=== PATIENT | female | born 1990 | race Caucasian/White ===

== ENCOUNTER 2020-02-17 11:23 | Emergency (ER) | payer MEDICAID, SELFPAY ==
--- NOTE | 2020-02-17 11:59 | ED_ITS ---
HPI - URI/Sore Throat General Chief Complaint: Upper Respiratory Symptoms Stated Complaint: covid symptoms [id number] Time Seen by Provider: 02/17/20 11:55 Source: patient Mode of arrival: ambulatory Limitations: no limitations History of Present Illness HPI Narrative: cough, subjective fevers, body aches, sore throat MD elicited complaint: fever, cough and sore throat Onset (ago): day(s) (yesterday ) Consistency: constant Severity: mild Associated symptoms: denies other symptoms Related Data Previous Rx's Medication Instructions Recorded acetaminophen [Tylenol] 650 mg PO Q6H PRN #30 tab 02/17/20 albuterol sulfate 1 inh INHALATION QID PRN #6.7 g 02/17/20 ibuprofen 600 mg PO Q8H PRN #30 tab 02/17/20 Allergies Allergy/AdvReac Type Severity Reaction Status Date / Time No Known Allergies Allergy Unverified 01/30/20 19:19 [No Known Allergies*] Review of Systems Review of Systems: Yes all other systems are reviewed and are negative Constitutional: Constitutional: Reports no additional constitutional complaints, Reports body ache(s), Reports chills, Reports fever(s) and Denies headache(s) Eyes: Eyes: Denies change in vision ENT: Reports system reviewed and no additional complaints, except as documented, Denies dizziness, Denies headache(s) and Reports sore throat Cardiovascular: Cardiovascular: Reports no additional cardiovascular complaints, Denies chest pain, Denies leg edema and Denies dyspnea Respiratory: Respiratory: Reports no additional respiratory complaints, Reports cough and Denies dyspnea Gastrointestinal: Gastrointestinal: Reports no additional gastrointestinal complaints, Denies abdominal pain, Denies diarrhea, Denies nausea and Denies vomiting Musculoskeletal: Musculoskeletal: Reports no additional musculoskeletal complaints, Denies deformity, Denies arthralgias, Denies joint swelling, Denies numbness, Denies stiffness and Denies tingling Integumentary/Breasts: Skin/Breast: Reports system reviewed and no additional complaints, except as docu and Denies rash Neurologic: Reports system reviewed and no additional complaints, except as do cumented, Denies Abnormal speech present, Denies dizziness, Denies headache(s), Denies numbness and Denies tingling PMFSH Past Medical History Attestation statement: The following information was validated with the patient. Social History Social History Advance Directives: No Advance Directives Information Provided: No Physical Exam Vital Signs and I&O and Narrative: Vital Signs and I&O: Vital Signs Temp 98.8 F 02/17/20 12:16 Pulse 76 02/17/20 12:16 Resp 16 02/17/20 12:16 BP 136/62 02/17/20 12:16 Pulse Ox 99 02/17/20 12:16 Intake & Output 02/16/20 02/17/20 02/17/20 18:59 06:59 18:59 Weight 127.006 kg Body Mass Index 46.5 Const: General: cooperative Orientation/consciousness: patient oriented x3 HENMT: Head: Yes normal to inspection Ears: hearing grossly normal bilaterally General nose exam: Normal external nose present Face and sinus: Yes normal facial exam Mouth: Normal oral and palatal mucosa present Throat: Yes posterior oropharynx normal Eyes: General: appearance normal, both eyes and all related structures Pupils: Equal, round and reactive pupils present Neck: Neck: Yes normal visual inspection Chest: Chest palpation & inspection: normal inspection of the chest Resp: Effort & Inspection: normal respiratory effort Auscultation: clear to auscultation bilaterally Cardio: Palpation: normal PMI Rate: regular rate Rhythm: regular rhythm GI: Inspection: Yes normal to inspection Palpation (GI): Soft to palpation and nontender Auscultation: normal bowel sounds Back/Spine/Pelvis: Thoracic/Lumbar Spine: thoracic and lumbar spine normal to inspection Skin: General skin exam: no rashes or lesions noted Neuro: General: patient oriented x3 Cranial nerves: Yes Equal, round and reactive pupils present Speech: No Abnormal speech present Gait exam (Neuro): Normal gait present Motor exam (neuro): 5/5 motor strength present throughout and Motor abnormalities not present Sensory Exam: Normal double simultaneous stimulation for sensation Extrem: General: Yes normal to inspection MDM - URI/Sore Throat MDM Narrative Medical decision making narrative: Exam c/w with viral syndrome. Benign exam, well appearing. COVID testing sent. Reviewed worrisome signs/symptoms with patient and when to return to ED. Comfortable with discharge home Discharge Plan Discharge Clinical Impression: Viral infection Patient Disposition: Home, Self-Care Instructions: Viral Syndrome (ED) Additional Instructions: We have tested you today for COVID 19. We will call you in 1-2 days with your results Motrin or tylenol for pain or fever as needed Increase fluids, rest Prescriptions: New albuterol sulfate 90 mcg/actuation HFA aerosol inhaler 1 inh inhalation QID PRN (Reason: shortness of breath or wheezing) Qty: 6.7 RF: 0 ibuprofen 600 mg tablet 600 mg PO Q8H PRN (Reason: fever or pain) Qty: 30 RF: 0 acetaminophen [Tylenol] 325 mg tablet 650 mg PO Q6H PRN (Reason: fever or pain) Qty: 30 RF: 0 Referrals: Dione Rawls, APPLICATIONS TESTER [Primary Care Provider] - 5 days (if no better) Stand Alone Forms: Work/School Release Interventions: ED Discharge Assessment Last Done: 02/17/20 12:23
[2020-02-17 12:16] VITALS: BP 136/62; PULSE 76; RESP 16; TEMP 37.1; O2SAT 99; BMI 46.5
== END 2020-02-17 12:39 | disposition home or self-care (01) ==
PROVIDERS: Nurse Practitioner Family; Emergency Provider Internal Medicine; PCP Registered Nurse
DX: B34.9 Viral infection, unspecified (principal); R50.9 Fever, unspecified; M79.10 Myalgia, unspecified site; Z20.828 Contact with and (suspected) exposure to other viral communicable diseases
CPT/HCPCS: 36415; 87635; 99283

== ENCOUNTER 2020-02-27 09:32 | Day surgery (SDC) | payer MEDICAID, SELFPAY ==
[2020-02-27] VITALS (8 sets, daily range): BP systolic 132–155; BP diastolic 60–92; PULSE 54–72; RESP 16–18; TEMP 36.1; O2SAT 98–100; BMI 46.5
--- NOTE | 2020-02-27 | FL_ITS ---
EXAMINATION: XR LUMBAR PUNCTURE CLINICAL INFORMATION: Headache, pseudotumor cerebri. COMPARISON: None TECHNIQUE: Fluoroscopic guided lumbar puncture FINDINGS: Informed consent was obtained from the patient prior to the procedure. During this process, the procedure and potential alternatives were explained, along with the intended outcome and benefits. The risks of the procedure, as well as the risk of not doing the procedure, were discussed. The patient was given the opportunity to ask questions regarding the procedure and appeared competent to make medical decisions. A signed consent form which documents this discussion was placed in the medical record. Using sterile technique and fluoroscopic guidance a 22-gauge spinal needle was directed into the L3-L4 disc space level. The opening pressure was 13 cm of water. A total of 3.5 mL of CSF was collected. Closing pressure was 8 cm of water. One image. 20.950 mGy. 0.3 minutes fluoroscopy. IMPRESSION: Lumbar puncture as described with opening pressure of 13 cm of water.
[2020-02-27 10:19] LABS: MANUAL DIFF FLAG NO
[2020-02-27 10:30] LABS: Basophils Percent Auto 0.4 % (0-2); Eosinophils Absolute Auto 0.1 X10*3/uL (0.0-0.4); Eosinophils Percent Auto 1.8 % (0-4); Hematocrit 38.1 % (37-47); Imm Gran Abs Auto 0.02 X10*3/uL (0.00-0.03); Imm Gran Pct Auto 0.3 % (0.0-0.4); Lymphocytes Absolute Auto 2.4 X10*3/uL (1.2-4.9); Lymphocytes Percent Auto 31.3 % (20-40); Mean Corpuscular HGB Conc 31.5 g/dl (31.0-35.0); Mean Corpuscular Hemoglobin 26.4 pg (27.0-33.0); Mean Corpuscular Volume 83.9 fL (80-98); Mean Platelet Volume 12.2 fL (9.4-12.3); Monocytes Absolute Auto 0.3 X10*3/uL (0.1-1.2); Monocytes Percent Auto 4.4 % (2-11); Neutrophils Absolute Auto 4.8 X10*3/uL (2.0-8.3); Neutrophils Percent Auto 61.8 % (45-73); Platelet Count 310 X10*3/uL (160-400); Red Blood Count 4.54 X10*6/uL (4.20-5.50); Red Cell Distribution Width 13.3 % (11.0-16.0); White Blood Count 7.7 X10*3/uL (4.8-10.8)
[2020-02-27 10:34] LABS: Prothrombin Time 12.2 SEC (10.8-13.0)
[2020-02-27 10:38] LABS: Partial Thromboplastin Time 34.9 SEC (24.1-38.0)
[2020-02-27 13:03] LABS: CSF Tube # 2
[2020-02-27 13:21] LABS: Appearance CSF CLEAR
[2020-02-27 13:35] LABS: Glucose CSF 62 mg/dL; Total Protein CSF 45.4 mg/dL (15-45)
[2020-02-27 13:57] LABS: Appearance CSF CLEAR; CSF Tube # 4; CSF Volume 0.5 ML; Color CSF COLORLESS; Lymphocytes CSF 90 %; Neutrophils CSF 10 %; Red Blood Cell CSF 29 MM*3; White Blood Cell CSF 2 MM*3
[2020-02-27 13:58] LABS: CSF Monos 0 %; CSF Other Cells % 0 %
== END 2020-02-27 15:30 | disposition home or self-care (01) ==
LOC: HO.SSS 09:33
PROVIDERS: PCP Registered Nurse; Visit Provider Psychiatry & Neurology Neurology
PROC: 009U3ZZ Drainage of Spinal Canal, Percutaneous Approach (ICD-10-PCS; CPT 62270; principal; 2020-02-27 11:00)
DX: G93.2 Benign intracranial hypertension (principal)
CPT/HCPCS: 36415; 62328; 82945; 84157; 85025; 85610; 85730; 87015; 87070; 87205; 89051

== ENCOUNTER 2020-03-30 08:11 | Emergency (ER) | payer MEDICAID, SELFPAY ==
[2020-03-30 08:18] VITALS: BP 142/82; PULSE 77; RESP 16; TEMP 36.2; O2SAT 96; BMI 46.5
--- NOTE | 2020-03-30 09:34 | ED.BACK ---
HPI - Back Pain/Injury General Chief Complaint: Back Pain/Injury Stated Complaint: BACK PAIN Time Seen by Provider: 03/30/20 09:34 History of Present Illness HPI Narrative: Patient complains of low back pain worse on the left side radiating to her left foot, she has no injury this is been going on for 3 days the pain is moderate, pain is worse with movement, there is no changes to bowel or bladder, no fever no chills no numbness no weakness Related Data Previous Rx's Medication Instructions Recorded acetaminophen [Tylenol] 650 mg PO Q6H PRN #30 tab 02/17/20 albuterol sulfate 1 inh INHALATION QID PRN #6.7 g 02/17/20 ibuprofen 600 mg PO Q8H PRN #30 tab 02/17/20 acetaminophen-codeine 1 - 2 tab PO Q6H PRN #20 tab 03/30/20 ibuprofen 600 mg PO Q6H PRN #20 tab 03/30/20 prednisone 60 mg PO DAILY 3 Days #9 tab 03/30/20 Allergies Allergy/AdvReac Type Severity Reaction Status Date / Time No Known Allergies Allergy Unverified 01/30/20 19:19 [No Known Allergies*] Review of Systems Review of Systems: Review of systems is positive for back pain on the left side radiating to the left leg There is no fever no chills no weakness no numbness no paresthesias no skin rash no chest pain no abdominal pain no nausea no vomiting no dysuria no incontinence no changes to bowel or bladder pattern Yes all other systems are reviewed and are negative [facility] Past Medical History Attestation statement: The following information was validated with the patient. [facility] Narrative: Patient has prior history of back pain Source: nursing notes reviewed Medical History (Updated 03/30/20 @ 09:48 by JACKIE Prado) Asthma Surgical History (Updated 03/30/20 @ 08:22 by Rita Weaver) History of cholecystectomy Social History Social History Smoking Status: Never smoker Advance Directives: No Advance Directives Information Provided: Yes Physical Exam Vital Signs: Vital Signs: Last Vital Signs Temp 97.1 F 03/30/20 08:18 Pulse 77 03/30/20 08:18 Resp 16 03/30/20 08:18 BP 142/82 H 03/30/20 08:18 Pulse Ox 96 03/30/20 08:18 Body Mass Index 46.5 General appearance no acute distress, A&O x3 Normocephalic atraumatic Neck is supple Chest wall is nontender, no respiratory distress Abdomen is soft and nontender The back there is left-sided paraspinal lumbar tenderness, skin is normal, no focal bony tenderness, no redness or wounds, no CVA tenderness Extremities is full range of motion x4 Neuro there is no motor or sensory deficit and the gait is normal, patient can walk on toes walk on heels Course Course Course Narrative: Exam is consistent with left sciatica with no neurologic deficit no bowel or bladder change Discharge Plan Discharge Clinical Impression: Sciatica Qualifiers: Laterality: left Qualified Code(s): M54.32 - Sciatica, left side Patient Disposition: Home, Self-Care Additional Instructions: Symptoms of back pain shooting down left leg are most likely pinched nerve in her back Prednisone sometimes reduces inflammation around the nerve Follow with primary doctor for referral for physical therapy, chiropractor, massage are all often helpful Return any time if worse Prescriptions: New acetaminophen-codeine 300-30 mg tablet 1 - 2 tab PO Q6H PRN (Reason: pain) Qty: 20 RF: 0 ibuprofen 600 mg tablet 600 mg PO Q6H PRN (Reason: pain) Qty: 20 RF: 0 prednisone 20 mg tablet 60 mg PO DAILY 3 Days Qty: 9 RF: 0 No Action albuterol sulfate 90 mcg/actuation HFA aerosol inhaler 1 inh inhalation QID PRN (Reason: shortness of breath or wheezing) Qty: 6.7 RF: 0 ibuprofen 600 mg tablet 600 mg PO Q8H PRN (Reason: fever or pain) Qty: 30 RF: 0 acetaminophen [Tylenol] 325 mg tablet 650 mg PO Q6H PRN (Reason: fever or pain) Qty: 30 RF: 0 Stand Alone Forms: Work/School Release Interventions: ED Discharge Assessment Last Done: 03/30/20 10:06 Discharge Date/Time: 03/30/20 10:00
[2020-03-30] MEDS: Acetaminophen 325 MG TABLET 650 MG PO (09:53)
[2020-03-30] MEDS: predniSONE 20 MG TABLET 60 MG PO (09:54)
[2020-03-30] MEDS: Ketorolac Tromethamine 30 MG/ML VIAL IM (09:54)
== END 2020-03-30 10:00 | disposition home or self-care (01) ==
PROVIDERS: Emergency Provider Emergency Medicine; PCP Registered Nurse
DX: M54.32 Sciatica, left side (principal); M79.672 Pain in left foot; Z79.899 Other long term (current) drug therapy
CPT/HCPCS: 96372; 99283; 99284; J1885

== ENCOUNTER 2020-08-27 07:36 | Emergency (ER) | payer MEDICAID, SELFPAY ==
--- NOTE | ~2020-08-27 | XR_ITS ---
EXAMINATION: XR LUMBOSACRAL SPINE CLINICAL INFORMATION: Back pain COMPARISON: None TECHNIQUE: Three views of the lumbosacral spine. FINDINGS: There is normal lumbar segmentation with 5 nonrib-bearing lumbar vertebrae of normal height and normal lumbar lordosis. There is likely spina bifida occulta at S1. There is no vertebral compression or spondylolisthesis or destructive process. Degenerative disc changes are present at L4-L5 with disc space narrowing and mild endplate sclerosis and borderline vertebral spurring. There are lesser degenerative disc changes at L3-L4. The SI joints and visualized sacrum are unremarkable. XR/XR lumbar spine 2-3V IMPRESSION: 1. Degenerative disc changes L4-L5 and L3-L4. 2. Spina bifida occulta S1.
[2020-08-27 08:36] VITALS: BP 146/82; PULSE 68; RESP 18; TEMP 36.8; O2SAT 98; BMI 47.2
[2020-08-27] MEDS: Acetaminophen 325 MG TABLET 650 MG PO (09:58)
[2020-08-27] MEDS: Lidocaine 4 % Patch ADH..PATCH 1 PATCH TRANSDERMA (09:59)
[2020-08-27] MEDS: Ketorolac Tromethamine 30 MG/ML VIAL IM (10:00)
[2020-08-27 10:03] VITALS: BP 149/94; PULSE 65; RESP 12; O2SAT 98
--- NOTE | 2020-08-27 10:14 | ED.BACK ---
HPI - Back Pain/Injury General Chief Complaint: Back Pain/Injury Stated Complaint: flank pain Time Seen by Provider: 08/27/20 09:15 Source: patient Mode of arrival: ambulatory History of Present Illness HPI Narrative: 30-year-old female with a past medical history of asthma, sciatica, presenting to the ED complaining of 3 weeks of acute on chronic worsening low back pain radiating down bilateral lower extremities. Reports taking Robaxin and ibuprofen prescribed at [facility] without relief. Admits to associated numbness/paresthesias down bilateral lower extremities. Denies known injury/trauma or falls, weakness, urinary incontinence/retention, fever, chills, dysuria/hematuria, nausea/vomiting MD elicited complaint: back pain Related Data Previous Rx's Medication Instructions Recorded acetaminophen [Tylenol] 650 mg PO Q6H PRN #30 tab 02/17/20 albuterol sulfate 1 inh INHALATION QID PRN #6.7 g 02/17/20 ibuprofen 600 mg PO Q8H PRN #30 tab 02/17/20 acetaminophen-codeine 1 - 2 tab PO Q6H PRN #20 tab 03/30/20 ibuprofen 600 mg PO Q6H PRN #20 tab 03/30/20 prednisone 60 mg PO DAILY 3 Days #9 tab 03/30/20 acetaminophen [Tylenol Extra 500 mg PO Q6H PRN #20 tab 08/27/20 Strength] lidocaine [Lidoderm] 1 patch TOPICAL DAILY PRN #30 ea 08/27/20 MDD remove after 12 hours tramadol 50 mg PO Q8H PRN 3 Days #9 tab 08/27/20 Allergies Allergy/AdvReac Type Severity Reaction Status Date / Time No Known Allergies Allergy Unverified 01/30/20 19:19 [No Known Allergies*] Review of Systems Review of Systems: Constitutional: No Fever, No Chills Gastrointestinal: No Nausea, No Vomiting, No Abdominal pain Genitourinary: No Dysuria, No Urinary Frequency, No Hematuria, No Urinary Incontinence/retention, No Flank Pain Musculoskeletal: +back pain Skin: No Skin Lesions, No rash Neuro: No Weakness, + Numbness, + Paresthesias Yes all other systems are reviewed and are negative PMFSH Past Medical History Attestation statement: The following information was validated with the patient. Medical History (Updated 08/27/20 @ 10:20 by JACKIE Clark) Asthma Surgical History (Updated 03/30/20 @ 08:22 by Rita Weaver) History of cholecystectomy Social History Social History Smoking Status: Never smoker Use of substances other than those prescribed or required for medical reasons: No Advance Directives: No Advance Directives Information Provided: Yes Physical Exam Vital Signs: Vital Signs: Last Vital Signs Temp 98.2 F 08/27/20 08:36 Pulse 65 08/27/20 10:03 Resp 12 08/27/20 10:03 BP 149/94 H 08/27/20 10:03 Pulse Ox 98 08/27/20 10:03 Body Mass Index 47.2 Const: Other: In pain General: cooperative, healthy appearing and comfortable Orientation/consciousness: patient oriented x3 Limitations: no limitations HENMT: Head: Yes normal to inspection Ears: hearing grossly normal bilaterally General nose exam: Normal external nose present Face and sinus: Yes normal facial exam Eyes: General: appearance normal, both eyes and all related structures EOM: EOMs intact bilaterally Neck: Neck: Yes normal visual inspection Resp: Effort & Inspection: normal respiratory effort Cardio: Rate: regular rate GI: Inspection: Yes normal to inspection Palpation (GI): Soft to palpation, nontender and no guarding : General: Yes no CVA tenderness Back/Spine/Pelvis: Other: No midline thoracic/lumbar spinous tenderness or step-off/deformity. + bilateral thoracic and lumbar paraspinal MSK tenderness to palpation Back: no CVA tenderness Skin: Rashes: no rashes Wounds: no wounds Neuro: Other: No saddle anesthesia General: patient oriented x3, gait normal, tone normal and moves all extremities Gait exam (Neuro): Normal gait present Motor exam (neuro): 5/5 motor strength present throughout Extrem: General: Yes normal to inspection Course Course Course Narrative: -UA negative, no blood XR lumbar spine 2-3V IMPRESSION: 1. Degenerative disc changes L4-L5 and L3-L4. 2. Spina bifida occulta S1. >> results discussed with patient. Discussed she should follow up with Neurosurgery/[facility] with these x-ray findings. She verbalized understanding feel safe for discharge. Worrisome signs and symptoms and strict return precautions discussed MDM - Back Pain/Injury MDM Narrative Medical decision making narrative: On exam VSS, NAD/well-appearing, physical exam as above, no midline spinous tenderness/deformity, no red flag symptoms or saddle anesthesia, ambulating with steady gait. Likely MSK pain/sciatica. Low concern for cauda equina/cord compression Due to this being patient's 2nd ED visit in short time will obtain x-rays Medical Records Attestation: I reviewed the patient's medical records. Lab Data Labs: Lab Results 08/27/20 Range/Units 10:09 Urine Color YELLOW Urine Appearance CLEAR Urine pH 6.0 (5.0-8.0) Ur Specific [place] 1.025 (1.005-1.025) Urine Protein NEG (NEG-TRACE) MG/DL Urine Glucose (UA) NEG (NEG) MG/DL Urine Ketones NEG (NEG) MG/DL Urine Blood NEG (NEG) Urine Nitrite NEG (NEG) Ur Leukocyte Esterase NEG (NEG) Discharge Plan Discharge Clinical Impression: Sciatica, Lumbar radiculopathy Patient Disposition: Home, Self-Care Instructions: Back Pain (ED) Additional Instructions: Your x-ray showed degenerative disc changes at L4-5 and L3-4, also likely spina bifida occulta at S1 which is a small gap in her vertebra. You should follow-up with a spine doctor [facility] [address] Continue taking previously prescribed medications. In addition: Lidoderm patches are numbing patches, apply to painful area Tramadol is an opiate pain medication, take only when pain is severe for the next 3 days In addition take Tylenol at home If symptoms persist or worsen, pain becomes unbearable, you developed urinary retention or incontinence, or weakness return to the ED Prescriptions: New acetaminophen [Tylenol Extra Strength] 500 mg tablet 500 mg PO Q6H PRN (Reason: pain or fever) Qty: 20 RF: 0 lidocaine [Lidoderm] 5 % adhesive patch,medicated 1 patch topical DAILY MDD remove after 12 hours PRN (Reason: pain) Qty: 30 RF: 0 tramadol 50 mg tablet 50 mg PO Q8H PRN (Reason: pain) 3 Days Qty: 9 RF: 0 No Action albuterol sulfate 90 mcg/actuation HFA aerosol inhaler 1 inh inhalation QID PRN (Reason: shortness of breath or wheezing) Qty: 6.7 RF: 0 ibuprofen 600 mg tablet 600 mg PO Q8H PRN (Reason: fever or pain) Qty: 30 RF: 0 acetaminophen [Tylenol] 325 mg tablet 650 mg PO Q6H PRN (Reason: fever or pain) Qty: 30 RF: 0 acetaminophen-codeine 300-30 mg tablet 1 - 2 tab PO Q6H PRN (Reason: pain) Qty: 20 RF: 0 ibuprofen 600 mg tablet 600 mg PO Q6H PRN (Reason: pain) Qty: 20 RF: 0 prednisone 20 mg tablet 60 mg PO DAILY 3 Days Qty: 9 RF: 0 Referrals: Dione Rawls, BRANDING SPECIALIST [Primary Care Provider] - 2 days
--- NOTE | 2020-08-27 10:17 | PC.NURSE ---
PT REPORTS PAIN 10/10, PAIN MED GIVEN. PT TAKEN TO CT SCAN AND U/A OBTAINED RESULTS PENDING.
[2020-08-27 10:24] LABS: Glucose Urine UA NEG (NEG); Leukocyte Esterase Urine NEG (NEG); Nitrite Urine NEG (NEG); Specific Gravity - Urine 1.025 (1.005-1.025); Urine Blood NEG (NEG); Urine Ketones NEG (NEG); Urine Protein NEG (NEG-TRACE)
[2020-08-27 10:28] LABS: Appearance Urine CLEAR; Color Urine YELLOW
== END 2020-08-27 11:27 | disposition home or self-care (01) ==
PROVIDERS: Physician Assistant; Emergency Provider Emergency Medicine Emergency Medical Services; PCP Registered Nurse
DX: M54.42 Lumbago with sciatica, left side (principal); M54.41 Lumbago with sciatica, right side; M54.16 Radiculopathy, lumbar region
CPT/HCPCS: 72100; 81003; 96372; 99284; J1885

== ENCOUNTER → 2021-06-08 14:21 | Outpatient (BNVA) | payer MEDICAID, SELFPAY | PROVIDERS: PCP Registered Nurse; Referring Provider Registered Nurse; Visit Provider Physician Assistant ==

== ENCOUNTER 2021-07-01 07:47 | Emergency (ER) | payer MEDICAID, SELFPAY ==
[2021-07-01 07:54] VITALS: BP 162/67; PULSE 72; RESP 18; TEMP 36.6; O2SAT 98; BMI 45.1
[2021-07-01 08:16] VITALS: BP 123/66; PULSE 70; RESP 15; TEMP 37.1; O2SAT 99
--- NOTE | 2021-07-01 08:36 | ED_ITS ---
HPI - General Adult General Chief complaint: General Medical Stated complaint: Rash Time Seen by Provider: 07/01/21 08:09 Source: patient Mode of arrival: ambulatory Limitations: language barrier History of Present Illness HPI narrative: 31-year-old Ugandan-speaking female presents for a rash over her entire body that started midday yesterday. Rash is itchy, not painful, no fevers. Patient has no allergies that she knows of, she has no recent medication changes, she has not used any new soaps, body washes, laundry detergent, shampoos, conditioners, body lotions; she has not eaten any new foods, she has not gotten any new pets. No shortness of breath, no wheezing, no throat swelling, tongue swelling, lip swelling, throat itchiness. No chest pain, shortness of breath, abdominal pain, nausea or vomiting. Related Data Previous Rx's Medication Instructions Recorded famotidine 20 mg tablet 20 mg PO DAILY 14 Days #14 tab 07/01/21 prednisone 20 mg tablet 60 mg PO DAILY 5 Days #15 tab 07/01/21 Allergies Allergy/AdvReac Type Severity Reaction Status Date / Time No Known Allergies Allergy Verified 06/08/21 09:20 [No Known Allergies*] Review of Systems Constitutional: Constitutional: Denies body ache(s), Denies chills, Denies fatigue, Denies fever(s), Denies headache(s), Denies malaise and Denies weakness Eyes: Eyes: Denies diplopia ENT: Denies vertigo, Denies dizziness, Denies otalgia, Denies headache(s), Denies mouth pain, Denies post nasal drip, Denies sinus pain, Denies sinus pressure, Denies sore throat and Denies throat swelling Cardiovascular: Cardiovascular: Denies chest pain, Denies syncope, Denies leg edema, Denies lightheadedness, Denies Loss of Consciousness, Denies palpitations and Denies dyspnea Respiratory: Respiratory: Denies chest congestion, Denies cough and Denies dyspnea Gastrointestinal: Gastrointestinal: Denies abdominal pain, Denies hematochezia, Denies constipation, Denies diarrhea and Denies vomiting Musculoskeletal: Musculoskeletal: Reports no additional musculoskeletal complaints Integumentary/Breasts: Skin/Breast: Reports rash Comments: Itchy rash on back, bilateral legs, bilateral thigh Neurologic: Denies confusion, Denies vertigo, Denies dizziness, Denies syncope, Denies headache(s) and Denies weakness Psychiatric: Psychiatric: Denies anxiety, Denies confusion and Denies depression Endocrine: Endocrine: Denies fatigue and Denies palpitations Allergic/Immunologic: Allergic/Immunologic: Denies throat swelling [facility], [facility] Past Medical History Medical History Asthma Surgical History History of cholecystectomy Family History Family History (Updated 06/08/21 @ 09:08 by Sofia Quach) Mother Cancer Thyroid condition Father No problems noted. Sister Thyroid condition Asthma Sister No problems noted. Brother No problems noted. Brother No problems noted. Brother Hypertension Son No problems noted. Social History Social History (Updated 06/08/21 @ 09:10 by Sofia Quach) Alcohol intake: current Alcohol intake frequency: holidays/special occasions only Patient Tobacco Use Status: Never used Tobacco Advance Directives: No Advance Directives Information Provided: No Patient : No Physical Exam ED Vital Signs: Vital Signs - 24 hr 07/01/21 07:54 07/01/21 08:16 Temperature 98 F 98.8 F Pulse Rate 72 70 Respiratory Rate 18 15 Blood Pressure 162/67 H 123/66 Pulse Oximetry 98 99 BMI result Body Mass Index 45.1 Const General: healthy appearing, no acute distress, alert and awake; No confusion Nutritional Appearance: obese Orientation/consciousness: patient oriented x3 and No confusion Limitations: no limitations [facility] Head: Yes normal to inspection, Yes normocephalic and Yes atraumatic Ears: hearing grossly normal bilaterally General nose exam: Normal external nose present Face and sinus: Yes normal facial exam, Yes face symmetric, No edema and No Facial tenderness on exam of face and sinuses Mouth: Normal oral and palatal mucosa present, lip normal, tongue normal and or opharynx normal Throat: Yes posterior oropharynx normal Eyes Pupils: Equal, round and reactive pupils present EOM: EOMs intact bilaterally Neck Neck: Yes normal visual inspection, Yes full ROM, Yes no lymphadenopathy, Yes no meningeal signs, Yes trachea midline and Yes supple Resp Effort & Inspection: normal respiratory effort and able to speak in complete sentences Auscultation: clear to auscultation bilaterally, no crackles, no rales, no rhonchi and no wheezes Cardio Rate: regular rate Rhythm: regular rhythm Heart sounds: S1 normal heart sound present and S2 normal heart sound present GI Inspection: Yes Abdominal panniculus present and Yes obesity Palpation (GI): Soft to palpation, not firm, nontender, no guarding and not rigid Percussion: Yes normal to percussion Auscultation: normal bowel sounds Skin Other: Rash is faint and diffuse maculopapular on patient's upper posterior trunk, bi lateral arms, posterior thighs. Neuro General: patient oriented x3, moves all extremities, no meningeal signs, no focal motor deficits and No confusion Cranial nerves: Yes Equal, round and reactive pupils present Course Course Course Narrative: 51-year-old female presents with itchy rash that is diffuse over her body. Patient is well appearing, vital signs are stable, patient is satting 99% on room air. On exam, patient has a patent airway, no angioedema, lungs clear to auscultation bilaterally. Rash is faint and diffuse maculopapular on patient's upper posterior trunk, bilateral arms, posterior thighs. Gave prednisone, famotidine, Benadryl here in the emergency room. Prescribed the same for patient, counseled her to return if she had any trouble breathing, lip swelling, throat swelling, shortness of breath. Patient verbalized agreement understanding of the plan. All patient's questions were answered. Discharge Plan Discharge Clinical Impression: Contact dermatitis Patient Disposition: Home, Self-Care Instructions: Contact Dermatitis (ED) Additional Instructions: You have already had your prednisone and famotidine today. Please take those medications tomorrow starting in the morning. Please take them once a day in the morning. In addition, buy some [id number]-[id number] Benadryl, and take that as directed. Benadryl can make you sleepy, but will help with the itching until the other medications kick in. Please return to the emergency room if you have lip swelling, throat swelling, if you feel short of breath, wheezy, or have any trouble breathing. Please call your primary care provider for follow-up appointment from today's emergency room visit. Ya hendrickson tomado ricks prednisona y famotidina hoy. Por favor, tome esos medicamentos ma?giuliana a partir de la ma?giuliana. T?melos jesús vez al d?a por la ma?giuliana. Adem?s, compre un poco de Benadryl de venta paresh y t?donahue seg?n las indicaciones. B enadryl puede causarle norma?o, andrae ayudar? con la picaz?n hasta que los otros medicamentos momo efecto. Regrese a la kyaw de emergencias si tiene hinchaz?n de los labios o de la garganta, si le falta el aire, sibilancia o si tiene problemas para respirar. Llame a ricks proveedor de atenci?n primaria para jesús jaycee de seguimiento de la visita a la kyaw de emergencias de hoy. Prescriptions: New prednisone 20 mg tablet 60 mg PO DAILY 5 Days Qty: 15 0RF famotidine 20 mg tablet 20 mg PO DAILY 14 Days Qty: 14 0RF Stand Alone Forms: Work/School Release Print Language: Ugandan
[2021-07-01] MEDS: predniSONE 20 MG TABLET 60 MG PO (09:23)
[2021-07-01] MEDS: diphenhydrAMINE HCL 25 MG TABLET 50 MG PO (09:24)
[2021-07-01] MEDS: Famotidine 20 MG TABLET PO (09:24)
== END 2021-07-01 09:40 | disposition home or self-care (01) ==
PROVIDERS: Emergency Provider Emergency Medicine
DX: L25.9 Unspecified contact dermatitis, unspecified cause (principal); R21 Rash and other nonspecific skin eruption; Z79.899 Other long term (current) drug therapy
CPT/HCPCS: 99283; 99284; Q0163

== ENCOUNTER → 2021-07-14 08:08 | Outpatient (BNVA) | payer MEDICAID, SELFPAY | PROVIDERS: Visit Provider Surgery ==

== ENCOUNTER 2021-09-02 08:39 | Emergency (ER) | payer MEDICAID, SELFPAY ==
--- NOTE | ~2021-09-02 | XR_ITS ---
EXAMINATION: XR TIBIA AND FIBULA, LEFT CLINICAL INFORMATION: Status post heavy lifting with pain COMPARISON: None TECHNIQUE: AP and lateral views of the left tibia and fibula were obtained. FINDINGS: No acute visible fracture or dislocation. Joint spaces and alignment are maintained. Soft tissues are unremarkable. XR/XR tibia fibula LT 2V IMPRESSION: No acute visible fracture or dislocation.
--- NOTE | ~2021-09-02 | XR_ITS ---
EXAMINATION: XR LUMBOSACRAL SPINE CLINICAL INFORMATION: Status post heavy lifting with low back pain COMPARISON: Lumbar spine radiograph from 08/27/2020 TECHNIQUE: Three views of the lumbosacral spine. FINDINGS: 5 nonrib-bearing lumbar-type vertebral bodies. No acute visible fracture or dislocation. Minimal multilevel degenerative changes with osteophyte formation lower lumbar spine facet arthropathy. Vertebral body heights and disc spaces are otherwise maintained. Posterior elements are intact. Paraspinal soft tissues are unremarkable. Bowel gas is unremarkable. Surgical clips in the right upper quadrant abdomen. XR/XR lumbar spine 2-3V IMPRESSION: 1. No acute visible fracture or dislocation. 2. Minimal multilevel degenerative.
[2021-09-02 08:46] VITALS: BP 150/92; PULSE 81; RESP 20; TEMP 36.1; O2SAT 98; BMI 47.4
[2021-09-02] MEDS: NaPROXEN 500 MG TABLET PO (09:52)
[2021-09-02 10:06] LABS: UPreg QC Valid YES; Urine Pregnancy NEGATIVE (NEGATIVE)
[2021-09-02 10:07] LABS: Appearance Urine CLEAR; Color Urine YELLOW; Glucose Urine UA NEG (NEG); Leukocyte Esterase Urine TRACE (NEG); Nitrite Urine NEG (NEG); Specific Gravity - Urine >= 1.030 (1.005-1.025); UACC Culture Trigger NO; Urine Blood TRACE (NEG); Urine Ketones NEG (NEG); Urine Protein NEG (NEG-TRACE)
[2021-09-02 10:15] LABS: Squamous Epithelial Cell Urine 2+ /LPF
[2021-09-02 10:16] LABS: Bacteria Urine TRACE /LPF; RBC Urine 0 /HPF (0)
--- NOTE | 2021-09-02 10:42 | ED.BACK ---
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 She denies any paresthesias or any urinary bowel incontinence or retention, dysuria, hematuria or any other symptoms complaints or concerns at this times or injuries. MD elicited complaint: back pain and back injury Onset (ago): day(s) (yesterday at work ) Timing: constant Severity: moderate Similar Symptoms Previously: No Quality: aching Location: lumbar spine Radiation: none Exacerbating factors: movement, walking and lifting Relieving factors: none Context: while lifting, turning/twisting and bending Associated symptoms: denies other symptoms Work related injury: Yes Related Data Previous Rx's Medication Instructions Recorded famotidine 20 mg tablet 20 mg PO DAILY 14 Days #14 tab 07/01/21 prednisone 20 mg tablet 60 mg PO DAILY 5 Days #15 tab 07/01/21 cyclobenzaprine 10 mg tablet 10 mg PO Q8H PRN #14 tab 09/02/21 naproxen 500 mg tablet 500 mg PO BID PRN #14 tab 09/02/21 Allergies Allergy/AdvReac Type Severity Reaction Status Date / Time No Known Allergies Allergy Verified 09/02/21 08:51 [No Known Allergies*] Review of Systems Review of Systems: Constitutional : No trauma, No Weight loss, No Fever, No Chills, ENT/Mouth : No Hearing loss, No Ear Pain, No Nasal Congestion, No Sinus Pain, No Hoarseness, No sore throat, No Rhinorrhea, No Swallowing Difficulty Cardiovascular : No Chest Pain, No SOB Respiratory : No Cough, No Dyspnea Gastrointestinal : No Nausea, No Vomiting, No Diarrhea, No abdominal Pain, No Hematochezia, No Melena Genitourinary : No Dysuria, No Urinary Frequency, No Hematuria, No Urinary or Bowel Incontinence/retention Musculoskeletal : + Back pain, + left lower leg pain, No neck pain, No joint stiffness, No joint swelling Skin : No Skin Lesions, No rash or signs of infection Neuro : No Weakness, No radiation, No Numbness, No Paresthesias, No headache, no loss of bowel or bladder incontinence, no saddle anesthesia, Focal weakness, No radiation Denies history of IV drug usage. Yes all other systems are reviewed and are negative [facility] Past Medical History Attestation statement: The following information was validated with the patient. Medical History Asthma Surgical History History of cholecystectomy Previous back surgery Family History Family History Mother Cancer Thyroid condition Father No problems noted. Sister Thyroid condition Asthma Sister No problems noted. Brother No problems noted. Brother No problems noted. Brother Hypertension Son No problems noted. Social History Social History Alcohol intake: current Alcohol intake frequency: holidays/special occasions only Patient Tobacco Use Status: Never used Tobacco Advance Directives: No Advance Directives Information Provided: Yes Patient : No Physical Exam Vital Signs: Vital Signs: Last Vital Signs Temp 97 F 09/02/21 08:46 Pulse 81 09/02/21 08:46 Resp 18 09/02/21 10:52 BP 150/92 H 09/02/21 08:46 Pulse Ox 98 09/02/21 08:46 BMI result Body Mass Index 47.4 vital signs have been reviewed as normal and appeared to be correct. Blood pressure normal. Heart rate normal. Respiration rate normal. Temperature normal. Oxygen saturation normal. Appearance: Alert. Oriented X3. No acute distress. Head: Normal external exam. Normocephalic. Atraumatic. Eyes: PERRLA. EOMI. Conjunctiva and sclera normal. Eyelids normal. ENT: Pharynx normal. Uvula midline. Moist mucous membranes. No trismus noted. No drooling noted. No muffled voice noted. Neck: Normal inspection. Neck supple. FROM. No adenopathy. Thyroid Normal. No meningeal signs. No neck mass noted. CVS: Normal heart rate and rhythm. Heart sound normal. No murmurs noted. Pulses normal throughout. Respiratory: No respiratory distress. Painless inspiration. Breath sounds normal. No wheezes/rales/rhonchi noted. Chest nontender. No accessory muscle usage noted or decreased air movement noted. Abdomen: Soft and nontender. Bowel sounds normal in all 4 quadrants. No distention noted. No organomegaly noted. No visible injury noted. Back: No CVA tenderness. Full range of motion noted. No obvious deformities, or edema. Mild para-spinal muscular tenderness from lumbar region to coccyx. Full ROM in back and lower extremities. 5/5 strength hip extension/flexion, abduction, adduction. Mild Lumbar pain with hip flexion against resistance. Straight leg raise test negative on right; Straight leg raise test negative on left; Reflexes normal ankle and knee bilaterally; EHL motor strength normal bilaterally. No rashes/lesion/induration/fluctuance or signs infection noted. Skin: Skin warm and dry. Normal skin color. Normal skin turgor. No rashes/lesions/lacerations noted. Extremities: Patient mild tenderness palpation to the left lateral aspect of the tibia/fibula no calf tenderness noted and no lower extremity edema noted. Otherwise all other extremities exhibit normal range of motion nontender. Neuro: Oriented X 3. No motor deficit. No sensory deficit. Reflexes normal. Patient has a normal steady gait. Course Course Course Narrative: Pt c likely muscular pain, but could be herniated disc. Neuro exam shows no deficits. Not c/w AAA/epidural abscess/dissection.No high risk Hx (Incont, fever, immunosupp, recent surgery/LP, coag, signif trauma, wt loss, puls mass, hx/o Ca, TB, or IVDU) to warrant MRI/CT today. Not c/w Pyelo/UTI/kidney stone. Not cauda equina syndrome. Will obtain x-ray of lower back and left tibia/fibula if negative will DC home with symptomatic treatment instructions return if any new or worsening symptoms and to follow up with primary care provider. Patient understands agrees with this plan. MDM - Back Pain/Injury Medical Records Attestation: I reviewed the patient's medical records. Lab Data Labs: Lab Results 09/02/21 09/02/21 Range/Units 09:54 09:54 Urine Color YELLOW Urine Appearance CLEAR Urine pH 6.0 (5.0-8.0) Ur Specific [place] >= 1.030 H (1.005-1.025) Urine Protein NEG (NEG-TRACE) MG/DL Urine Glucose (UA) NEG (NEG) MG/DL Urine Ketones NEG (NEG) MG/DL Urine Blood TRACE (NEG) Urine Nitrite NEG (NEG) Ur Leukocyte Esterase TRACE H (NEG) Urine RBC 0 (0) /HPF Urine WBC 1-4 (0-4) /HPF Ur Squamous Epith Cells 2+ /LPF Urine Bacteria TRACE /LPF Urine Test NEGATIVE (NEGATIVE) Imaging Data Lower back and left tibia/fibula x-ray: Attestation: I personally reviewed and interpreted this imaging study as follows: Radiologist's impression: [address] [address] XRay Report Signed Patient: Mary Anthony MR#: [id number] : 1990 Acct:[id number] Age/Sex: 31 / F ADM Date: 09/02/21 Loc: HO.ED Attending Dr: Ordering Physician: Jessy Joseph Date of Service: 09/02/21 Procedure(s): XR lumbar spine 2-3V Accession Number(s): [id number] cc: Jessy Joseph~ EXAMINATION: XR LUMBOSACRAL SPINE CLINICAL INFORMATION: Status post heavy lifting with low back pain COMPARISON: Lumbar spine radiograph from 08/27/2020 TECHNIQUE: Three views of the lumbosacral spine. FINDINGS: 5 nonrib-bearing lumbar-type vertebral bodies. No acute visible fracture or dislocation. Minimal multilevel degenerative changes with osteophyte formation lower lumbar spine facet arthropathy. Vertebral body heights and disc spaces are otherwise maintained. Posterior elements are intact. Paraspinal soft tissues are unremarkable. Bowel gas is unremarkable. Surgical clips in the right upper quadrant abdomen. XR/XR lumbar spine 2-3V IMPRESSION: 1.? No acute visible fracture or dislocation. 2.? Minimal multilevel degenerative. FINDINGS: No acute visible fracture or dislocation. Joint spaces and alignment are maintained. Soft tissues are unremarkable.? XR/XR tibia fibula LT 2V IMPRESSION: No acute visible fracture or dislocation. Discharge Plan Discharge Clinical Impression: Strain of lumbar region, Muscle strain of left lower extremity, Work related injury Patient Disposition: Home, Self-Care Instructions: Low Back Strain (ED), Return to Work Instructions (ED) Prescriptions: New naproxen 500 mg tablet 500 mg PO BID PRN (Reason: pain) Qty: 14 0RF cyclobenzaprine 10 mg tablet 10 mg PO Q8H PRN (Reason: Muscle spasm) Qty: 14 0RF No Action prednisone 20 mg tablet 60 mg PO DAILY 5 Days Qty: 15 0RF famotidine 20 mg tablet 20 mg PO DAILY 14 Days Qty: 14 0RF Referrals: Physician,Unknown J [Primary Care Provider] - (your pcp) Stand Alone Forms: Work/School Release Print Language: Polish
[2021-09-02 10:52] VITALS: RESP 18
== END 2021-09-02 12:16 | disposition home or self-care (01) ==
PROVIDERS: Physician Assistant Medical; Emergency Provider Student in an Organized Health Care Education/Training Program
DX: S39.012A Strain of muscle, fascia and tendon of lower back, initial encounter (principal); M79.605 Pain in left leg; X50.1XXA Overexertion from prolonged static or awkward postures, initial encounter; Y93.E9 Activity, other interior property and clothing maintenance; Y92.009 Unspecified place in unspecified non-institutional (private) residence as the place of occurrence of the external cause; Y99.0 Civilian activity done for income or pay; Z79.899 Other long term (current) drug therapy
CPT/HCPCS: 72100; 73590; 81001; 81003; 81025; 99283

== ENCOUNTER → 2021-09-10 09:37 | Outpatient (BNVA) | payer MEDICAID, SELFPAY | PROVIDERS: Referring Provider Registered Nurse; Visit Provider Physician Assistant Surgical | DX: Z13.89 Encounter for screening for other disorder (principal) ==

== ENCOUNTER → 2022-02-08 11:22 | Outpatient (BNVA) | payer MEDICAID, SELFPAY | PROVIDERS: Visit Provider Orthopaedic Surgery | DX: M67.431 Ganglion, right wrist (principal) | CPT/HCPCS: 20612; 99202 ==

== ENCOUNTER 2022-05-30 15:34 | Outpatient (REF) | payer MEDICAID, SELFPAY ==
--- NOTE | ~2022-05-30 | US_ITS ---
EXAMINATION: US PELVIS CLINICAL INFORMATION: Ovulation bleeding; the last menstrual period is not specified. COMPARISON: Pelvic ultrasound dated 05/17/2018. TECHNIQUE: Ultrasound of the pelvis is performed using both transabdominal and transvaginal transducers along with Doppler. Transvaginal imaging is performed due to inadequate visualization transabdominally. FINDINGS: Uterus: The uterus is anteverted and measures 9.4 x 5.0 x 6.9 cm. The uterus is anteverted and anteflexed. The double wall endometrial thickness is 0.6 mm. A 4 mm endometrial polyp is noted. The uterus is smooth in contour and has normal myometrial echogenicity. No visible fibroid. Nabothian cysts are seen within the cervix. Adnexa: Both ovaries are visualized. There is normal color flow to the adnexa. There is no ovarian torsion. There is no pelvic ascites or fluid collection. Right ovary measures 3.8 x 2.6 x 2.1 cm, volume 10.9 mL. The right ovary contains a 1.8 cm maximal diameter simple cyst, which requires no imaging follow-up. Left ovary measures 2.9 x 1.7 x 2.1 cm, volume 5.4 mL. US/US pelvic and transvaginal IMPRESSION: 1. A 4 mm endometrial polyp is noted. This could represent focal endometrial hyperplasia, a hyperplastic polyp, a subendometrial fibroid or other neoplasm. Gynecology evaluation and management are recommended, with consideration for tissue sampling. 2. Nabothian cysts are seen within the cervix. 3. A 1.8 cm in maximal diameter simple right ovarian cyst is seen, which requires no imaging follow-up.
== END 2022-05-30 15:35 | disposition home or self-care (01) ==
LOC: HO.US 15:34
PROVIDERS: PCP Registered Nurse; Visit Provider Registered Nurse
DX: N92.3 Ovulation bleeding (principal)
CPT/HCPCS: 76830; 76856

== ENCOUNTER 2022-06-03 14:10 | Outpatient (REF) | payer MEDICAID, SELFPAY ==
--- NOTE | ~2022-06-03 | XR_ITS ---
EXAMINATION: XR LUMBOSACRAL SPINE CLINICAL INFORMATION: Exacerbation of chronic back pain. COMPARISON: 09/02/2021 TECHNIQUE: Three views of the lumbosacral spine. FINDINGS: No fracture or subluxation. Vertebral body height and alignment maintained. Disc space narrowing at L3-L4 and L4-L5 with small endplate osteophytes. The sacroiliac joints are symmetric. The sacrum is intact. Normal bowel gas pattern. XR/XR lumbar spine 2-3V IMPRESSION: Mild degenerative changes of the lower lumbar spine.
== END 2022-06-03 14:11 | disposition home or self-care (01) ==
LOC: HO.XRAY 14:10
PROVIDERS: Absent Provider Registered Nurse; PCP Registered Nurse; Visit Provider Internal Medicine Geriatric Medicine
DX: M54.9 Dorsalgia, unspecified (principal); G89.29 Other chronic pain; Z98.890 Other specified postprocedural states
CPT/HCPCS: 72100

== ENCOUNTER → 2022-06-14 08:37 | Outpatient (BNVA) | payer MEDICAID, SELFPAY | PROVIDERS: PCP Registered Nurse; Visit Provider Orthopaedic Surgery | DX: Z01.818 Encounter for other preprocedural examination (principal); M67.431 Ganglion, right wrist | CPT/HCPCS: 99212 ==

== ENCOUNTER 2022-07-07 05:44 | Day surgery (SDC) | payer MEDICAID, SELFPAY ==
[2022-07-01 11:34] VITALS: BMI 46.9
[2022-07-07] VITALS (9 sets, daily range): BP systolic 125–164; BP diastolic 70–91; PULSE 65–83; RESP 16–18; TEMP 36.1–37; O2SAT 97–98; BMI 46.5
[2022-07-07 06:09] LABS: UPreg QC Valid YES; Urine Pregnancy NEGATIVE (NEGATIVE)
[2022-07-07] MEDS: Lactated Ringers 1,000 ML 50 ML IVCONT (06:38)
--- NOTE | 2022-07-07 07:29 | HO.ANESPROP2 ---
HPI - Anesthesia Eval Consult details Narrative: 32 yr old morbidly obese female for ganglion wrist excision PMFSH Active Problems Active Problems: All Active Problems (Updated 02/08/22 @ 11:43 by Boo Barreto) Ganglion cyst of dorsum of right wrist (Acute) Past Medical History Medical History Asthma Family History Family History Mother Cancer Thyroid condition Father No problems noted. Sister Thyroid condition Asthma Sister No problems noted. Brother No problems noted. Brother No problems noted. Brother Hypertension Son No problems noted. 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 Meds Allergies Allergy/AdvReac Type Severity Reaction Status Date / Time No Known Allergies Allergy Verified 06/14/22 08:56 [No Known Allergies*] Active Medications: Current Medications Lactated Ringer's (Lr) 1,000 mls @ 50 mls/hr IVCONT .Q20H GUS Last Admin: 07/07/22 06:38 Dose: 50 mls/hr Exam Exam Date and Time: July 07, 2022 0729 Height,Weight and Vital Signs: Height 5 ft 5 in Weight 127.006 kg Last Vital Signs Temp 97.0 F 07/07/22 06:14 Pulse 67 07/07/22 06:14 Resp 16 07/07/22 06:14 BP 150/91 H 07/07/22 06:14 Pulse Ox 97 07/07/22 06:14 O2 Del Method 07/07/22 06:14 Pertinent Lab Results Pertinent Lab Results: Laboratory Tests 07/07/22 06:00 Urine Test NEGATIVE Airway Mallampati Class: II Neck ROM: Full Heart: rrr Lungs: cta Assessment and Plan Assessment Anesthesia Assessment: Anesthesia Plan Discussed and Chart Reviewed Final Anesthetic Review Family History of Problems with Anesthesia: No History of Problems with Anesthesia: No NPO: Yes ASA Class: II and III Final Preanesthetic Review: No Changes in Pt Med Stat, Meds/Allgs Chart Reviewed, Consent Obtained/Reviewed and Anes Risks/Benef Reviewed Patient Risk: Intermediate Procedure Risk: Low Anesthetic Plan Anesthetic Plan: GA Disposition: Standard PACU
--- NOTE | 2022-07-07 07:53 | P.OP_ITS ---
Operative Note Operative Note Date of Service: 07/07/22 Narrative: Operative Note Narrative: Preop diagnosis: 1. Right dorsal wrist ganglion Postop diagnosis: Same Procedure: 1. Right dorsal wrist ganglion excisional biopsy Surgeon: Kenya Paz MD Anesthesia: General Findings: 1. right dorsal wrist ganglion approximately 1.5 cm diameter, filled with clear viscous fluid consistent with a ganglion Tourniquet time: 29 minutes EBL: 5.0 ml Specimen: dorsal wrist ganglion Drains: None Complications: None Disposition: Brought to the recovery room in stable condition Plan: Follow-up in 10-14 days for wound check, suture removal and to check pathology Indications: The patient is 32 years old with a right dorsal wrist ganglion that has been unresponsive to nonoperative management. The risks and benefits of operative treatment, including but not limited to risk of damage to blood vessels, nerves, tendons, infection, recurrence, persistent pain or numbness, or need for further surgery were discussed with the patient and they wished to pro ceed with surgery. Procedure: Once consent was obtained patient was brought back to the operating suite and placed in the operating table in a supine position. Perioperative antibiotics and anesthesia was administered by the anesthesia team. A tourniquet was applied to the proximal aspect of the right upper extremity and the limb was prepped and draped in a standard surgical fashion. The limb was elevated exsanguinated with Esmarch bandage and the tourniquet inflated to 250 mm of mercury for a total tourniquet time of 29 minutes. A 2 cm longitudinal incision was made over the dorsal aspect of the right wrist, centered over the dorsal wrist ganglion. Ganglion was located over the dorsal central aspect of the right wrist. The incision was made with a #15 blade through the skin to the subcutaneous tissues. Tenotomy scissors were then used to carefully dissect down through the subcutaneous layer to the dorsal wrist ganglion. It measured approximately 1.5 cm in diameter and was filled with clear viscous fluid consistent with a ganglion. It was carefully mobilized from the surrounding soft tissues using tenotomy and iris scissors. It's stalk passed through the interval between the she ECR be and 4th dorsal compartment tendons at the distal aspect of the wrist joint.. The Bovie and bipolar electrocautery was used to cauterize the stalk to reduce risk of recurrence., and the ganglion was cut free and removed to the back table to be sent for histopathologic review. No further masses were identified. At this point the tourniquet was deflated and hemostasis obtained with a brief period of local pressure and monopolar electrocautery. The Wound was irrigated with normal saline. The subcutaneous layer was closed with some 4-0 Vicryl suture, and the skin edges were reapproximated with some 5-0 Prolene suture. The wound was infiltrated with some 0.5% plain ropivacaine for postop pain control and a sterile dressing was applied. The patient appears to have tolerated the procedure well and with no complications. All digits were well vascularized conclusion of the case.
--- NOTE | 2022-07-07 07:53 | MHC.SHP ---
Pre-Procedural Eval Section A Date of Service: 07/07/22 The patient is an INPATIENT: No Changes since office visit: No Cold of Flu in the past 2 weeks, No New Medical Problems, No Changes in Medication and No Patient answered all questions The History & Physical has been completed within 30 days and I have reviewed it.: Yes Section B Chief Complaint: Ganglion, right wrist Allergies: Allergies Allergy/AdvReac Type Severity Reaction Status Date / Time No Known Allergies Allergy Verified 06/14/22 08:56 [No Known Allergies*] Plan I have reviewed the history and physical and performed a pertinent physical examination on my patient. No changes have occurred unless specified. Time Spent With Patient Time: Total time managing care of this patient today ____ minutes.
[2022-07-07] MEDS: Scopolamine 1.5 MG PATCH.TD.3 EAR-BEHIND (11:45)
--- NOTE | 2022-07-07 12:41 | PC.NURSE ---
PT GIVEN SCOPOLAMINE PATCH PRIOR TO DISCHARGE FOR COMPLAINT OF NAUSEA. PT STATED FEELING BETTER AFTER PATCH PLACED BEHIND LEFT EAR.
== END 2022-07-07 12:42 | disposition home or self-care (01) ==
PROVIDERS: Anesthesiology; PCP Registered Nurse; Visit Provider Orthopaedic Surgery
PROC: (CPT 25112; principal; 2022-07-07 07:30)
DX: M67.431 Ganglion, right wrist (principal); M71.331 Other bursal cyst, right wrist; J45.909 Unspecified asthma, uncomplicated; Z79.1 Long term (current) use of non-steroidal anti-inflammatories (NSAID)
CPT/HCPCS: 25112; 81025; 88304; J0171; J0690; J1100; J1885; J2405; J2795; J3010

== ENCOUNTER → 2022-07-20 12:48 | Outpatient (BNVA) | payer MEDICAID, SELFPAY | PROVIDERS: PCP Registered Nurse; Visit Provider Orthopaedic Surgery ==

== ENCOUNTER 2022-12-14 20:55 | Emergency (ER) | payer OTHER, SELFPAY ==
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
[2022-12-14 22:01] VITALS: BP 152/80; PULSE 79; RESP 18; TEMP 36.8; O2SAT 100; BMI 46.8
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
[2022-12-15] MEDS: Ibuprofen 600 MG TABLET PO (01:44)
[2022-12-15 02:47] VITALS: BP 141/87; PULSE 68; RESP 16; TEMP 37.1; O2SAT 96
== END 2022-12-15 02:52 | disposition home or self-care (01) ==
PROVIDERS: Emergency Provider Emergency Medicine; PCP Registered Nurse
DX: S13.4XXA Sprain of ligaments of cervical spine, initial encounter (principal); S50.12XA Contusion of left forearm, initial encounter; S40.012A Contusion of left shoulder, initial encounter; S46.912A Strain of unspecified muscle, fascia and tendon at shoulder and upper arm level, left arm, initial encounter; S80.12XA Contusion of left lower leg, initial encounter; M79.605 Pain in left leg; V43.52XA Car driver injured in collision with other type car in traffic accident, initial encounter; Y93.9 Activity, unspecified; Y92.410 Unspecified street and highway as the place of occurrence of the external cause; Y99.9 Unspecified external cause status; Z79.899 Other long term (current) drug therapy
CPT/HCPCS: 72040; 73090; 73590; 99283; 99284

== ENCOUNTER 2023-06-21 19:28 | Emergency (ER) | payer MEDICAID, SELFPAY ==
--- NOTE | ~2023-06-21 | US_ITS ---
EXAMINATION: US OBSTETRICAL ULTRASOUND CLINICAL INFORMATION: 7 weeks with vaginal bleeding. COMPARISON: None available. LMP: 04/29/2023. Gestational age by maternal dates is 7 weeks 4 days. Estimated date of delivery by maternal dates is 01/15/2024. TECHNIQUE: Transabdominal and transvaginal imaging of pelvis is performed. FINDINGS: There is a single intrauterine gestational sac with nonvisualization of yolk sac and pole. No cardiac 3 seen.. There is no significant subchorionic hemorrhage or hematoma. Distal sac measures 0.33 x 0.39 x 0.46 cm corresponding to 4 weeks and 6 days. MATERNAL ADNEXA: The right maternal ovary is not visualized. The left maternal ovary measures 1.9 x 2.9 x 2.0 cm. There is no significant maternal adnexal mass. No maternal pelvic ascites. US/US OB pelvic and transvaginal IMPRESSION: 1. Intrauterine gestational sac with mean sac diameter corresponding to 4 weeks 6 days. There is nonvisualization of pole or yolk sac. 2. The right ovary is not seen. 3. The left ovary is unremarkable.
[2023-06-21 20:14] VITALS: BP 142/72; PULSE 70; RESP 18; TEMP 36; O2SAT 100; BMI 45.6
[2023-06-21 21:50] LABS: MANUAL DIFF FLAG NO
[2023-06-21 21:52] LABS: Basophils Percent Auto 0.2 % (0-2); Eosinophils Absolute Auto 0.1 X10*3/uL (0.0-0.4); Eosinophils Percent Auto 0.8 % (0-4); Hemoglobin 11.7 g/dl (12.0-16.0); Imm Gran Abs Auto 0.03 X10*3/uL (0.00-0.03); Imm Gran Pct Auto 0.3 % (0.0-0.4); Lymphocytes Absolute Auto 2.7 X10*3/uL (1.2-4.9); Lymphocytes Percent Auto 26.4 % (20-40); Mean Corpuscular HGB Conc 31.6 g/dl (31.0-35.0); Mean Corpuscular Hemoglobin 26.4 pg (27.0-33.0); Mean Corpuscular Volume 83.5 fL (80.0-98.0); Mean Platelet Volume 12.7 fL (9.4-12.3); Monocytes Absolute Auto 0.5 X10*3/uL (0.1-1.2); Monocytes Percent Auto 4.5 % (2-11); Neutrophils Percent Auto 67.8 % (45-73); Platelet Count 270 X10*3/uL (160-400); Red Blood Count 4.43 X10*6/uL (4.20-5.50); White Blood Count 10.3 X10*3/uL (4.8-10.8)
[2023-06-21 22:02] LABS: Delay - Chemistry DELAY
[2023-06-21 22:17] LABS: Appearance Urine Clear; Color Urine Yellow; Glucose Urine UA Negative (Negative); Leukocyte Esterase Urine Negative (Negative); Nitrite Urine Negative (Negative); PH 6.5 (5.0-9.0); Specific Gravity - Urine >= 1.030 (1.005-1.025); Urine Blood Negative (Negative); Urine Ketones Negative (Negative); Urine Protein Negative (Neg-Trace)
[2023-06-21 22:19] LABS: UPreg QC Valid YES; Urine Pregnancy POSITIVE (NEGATIVE)
[2023-06-21 22:50] LABS: Anion Gap 12 (12-20); Blood Urea Nitrogen 13 mg/dL (9-16); Calcium 9.7 mg/dL (8.4-10.2); Carbon Dioxide 26 mmol/L (22-29); Chloride 105 mmol/L (96-108); Creatinine Clr Calc Pharmacy 132.9; Estimated Glomerular Filt Rate > 60; Glucose Random 99 mg/dL (60-115); Lipase 18 U/L (8-78); Potassium 3.9 mmol/L (3.3-5.1); Sodium 139 mmol/L (135-145)
[2023-06-21 22:51] LABS: HCG Quantitative 1806 mIU/mL
[2023-06-21 23:21] VITALS: BP 141/61; PULSE 74; RESP 14; TEMP 37.1; O2SAT 99
--- NOTE | 2023-06-22 00:58 | ED_ITS ---
HPI - General Chief complaint: Vaginal Bleeding Stated complaint: 7 wks , pain and spotting - is high risk Time Seen by Provider: 06/21/23 23:46 Source: patient Mode of arrival: ambulatory History of Present Illness HPI Narrative: 33-year-old female, who presents after seeing her Ob doctor today and knowing that she was and then states after she left the office she developed lower abdominal discomfort with vaginal bleeding. Patient reports that she is asymptomatic at this time and denies any fever, chills, nausea, vomiting or urinary symptoms. Related Data Previous Rx's Medication Instructions Recorded naproxen 500 mg tablet 500 mg PO BID PRN pain #14 tabs 09/02/21 cyclobenzaprine 10 mg tablet 10 mg PO BEDTIME PRN muscle spasm 12/15/22 #10 tabs Allergies Allergy/AdvReac Type Severity Reaction Status Date / Time No Known Allergies Allergy Verified 06/21/23 20:14 [No Known Allergies*] Review of Systems 2 Review of Systems: Pertinent positives and negatives as stated in HPI PMFSH Past Medical History Source: nursing notes reviewed Medical History Asthma Surgical History Previous back surgery History of cholecystectomy Family History Family History Mother Cancer Thyroid condition Father No problems noted. Sister Thyroid condition Asthma Sister No problems noted. Brother No problems noted. Brother No problems noted. Brother Hypertension Son No problems noted. 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 GENERAL: Elevated BMI, Well developed, well nourished, in no acute distress. HEAD: Normocephalic/atraumatic EYES: PERRLA, EOMI EARS: Ext canals without abnormality NOSE: Nares patent bilateral OROPHARYNX: no oral lesions noted, posterior pharynx clear NECK: Supple, no adenopathy LUNGS: Normal breath sounds. No adventitious sounds or accessory muscle use. SpO2<99> CARDIOVASCULAR: Regular rate and rhythm without noted murmurs ABDOMEN: Soft, non-tender, non-distended with bowel sounds. MUSCULOSKELETAL: No tenderness, deformities, or effusions noted on gross inspection. EXTREMITIES: No cyanosis, clubbing or edema. SKIN: Inspection of the skin reveals no rashes NEUROLOGIC: Alert and oriented x 4. Strength and sensation to light touch were grossly intact x 4. Medical Decision Making Medical Decision Making MDM Narrative: 33-year-old female with history and clinical presentation, DDX: First-trimester vaginal bleeding, SAB I reviewed all investigations and hematologic indices are negative for leukocytosis or left shift, there is no thrombo cytopenia and patient has a trace normocytic anemia likely associated with . Chemistry indices do not demonstrate ANGIE/electrolyte or liver enzyme derangements. Beta [id number]. Urinalysis negative for UTI or hematuria. Ob ultrasound identifies an IU he gestational sac a corresponds to 4 weeks and 6 days with his stating there is no visualization of pole or yolk sac, no pelvic free fluid, right ovary is not visualized in left ovary is unremarkable. My interpretation is that patient will be discharged with return precautions for vaginal bleeding given the combination lower pelvic discomfort in the vaginal spotting there is still the possibility of SAB. Differential Diagnosis Differential Diagnoses: The differential diagnosis associated with the presentation includes Please see the discussion above Admission/Observation Consideration of admission/observation: Escalation of care including admission/observation considered Please see the discussion above Lab Data [facility] Lab Attestation statement: I reviewed the patient's lab results. Please see the discussion above 06/21/23 21:41 06/21/23 21:41 Labs: Lab Results 06/21/23 06/21/23 06/21/23 Range/Units 21:41 21:41 22:10 WBC 10.3 (4.8-10.8) X10*3/uL RBC 4.43 (4.20-5.50) X10*6/uL Hgb 11.7 L (12.0-16.0) g/dl Hct 37.0 (37.0-47.0) % MCV 83.5 (80.0-98.0) fL MCH 26.4 L (27.0-33.0) pg MCHC 31.6 (31.0-35.0) g/dl RDW 14.0 (11.0-16.0) % Plt Count 270 (160-400) X10*3/uL MPV 12.7 H (9.4-12.3) fL Immature Gran % (Auto) 0.3 (0.0-0.4) % Neut % (Auto) 67.8 (45-73) % Lymph % (Auto) 26.4 (20-40) % Robertson % (Auto) 4.5 (2-11) % Eos % (Auto) 0.8 (0-4) % Baso % (Auto) 0.2 (0-2) % Lymph # (Auto) 2.7 (1.2-4.9) X10*3/uL Robertson # (Auto) 0.5 (0.1-1.2) X10*3/uL Eos # (Auto) 0.1 (0.0-0.4) X10*3/uL Baso # (Auto) 0.0 (0.0-0.2) X10*3/uL Abs Immat Gran (auto) 0.03 (0.00-0.03) X10*3/uL Absolute Neuts (auto) 7.0 (2.0-8.3) x10*3/uL Absolute Nucleated RBC 0.000 (0.0-0.012) X10*3/uL Nucleated RBC % (auto) 0.0 (0.0-0.2) /100WBC Sodium 139 (135-145) mmol/L Potassium 3.9 (3.3-5.1) mmol/L Chloride 105 (96-108) mmol/L Carbon Dioxide 26 (22-29) mmol/L Anion Gap 12 (12-20) BUN 13 (9-16) mg/dL Creatinine 0.79 (0.5-1.4) mg/dL Estim Creat Clear Calc 132.9 Estimated GFR > 60 Random Glucose 99 (60-115) mg/dL Calcium 9.7 (8.4-10.2) mg/dL Magnesium 2.0 (1.6-2.6) mg/dL Lipase 18 (8-78) U/L Beta HCG, Quant 1806 mIU/mL Specimen Comment DELAY Urine Color Yellow Urine Appearance Clear Urine pH 6.5 (5.0-9.0) Ur Specific [place] >= 1.030 H (1.005-1.025) Urine Protein Negative (Neg-Trace) mg/dL Urine Glucose (UA) Negative (Negative) mg/dL Urine Ketones Negative (Negative) mg/dL Urine Blood Negative (Negative) Urine Nitrite Negative (Negative) Ur Leukocyte Esterase Negative (Negative) Urine Test POSITIVE H (NEGATIVE) Blood Type Cancelled A Positive Antibody Screen NEGATIVE Radiology Impression Discussion of test interpretation with radiology: I have reviewed the radiologist's reading. Radiologist Impression: Please see the discussion above External Record Review External record reviewed: Outpatient record, Prior outpatient labs and Prior outpatient radiology Chronic Conditions Patient?s care impacted by: Other Asthma Discharge Plan Discharge Clinical Impression: First-trimester bleeding, , threatened Patient Disposition: Home, Self-Care Instructions: Threatened Miscarriage (ED) Additional Instructions: 1. Please continue to take vitamins everyday, follow-up with your chief lending officer as scheduled. 2. Return to the emergency room if you experience heavy persistent vaginal bleeding especially if associated with lower abdominal/pelvic discomfort. Prescriptions: No Action naproxen 500 mg tablet 500 mg PO BID PRN (Reason: pain) Qty: 14 0RF cyclobenzaprine 10 mg tablet 10 mg PO BEDTIME PRN (Reason: muscle spasm) Qty: 10 0RF
--- NOTE | 2023-06-22 01:04 | PC.NURSE ---
Pt ca&ox4, no signs of distress. Pt reports 2/10 RLQ abdmn pain. Pt denies N/V/D. Plan of care ongoing.
== END 2023-06-22 02:33 | disposition home or self-care (01) ==
PROVIDERS: Physician Assistant Medical; Emergency Provider Student in an Organized Health Care Education/Training Program; PCP Registered Nurse
DX: O20.9 Hemorrhage in early pregnancy, unspecified (principal); O20.0 Threatened abortion; Z3A.01 Less than 8 weeks gestation of pregnancy
CPT/HCPCS: 36415; 76801; 76817; 80048; 81003; 81025; 83690; 83735; 84702; 85025; 86850; 86900; 86901; 99284

== ENCOUNTER 2023-10-19 10:28 | Outpatient (REF) | payer MEDICAID, SELFPAY ==
[2023-10-19 11:25] LABS: MANUAL DIFF FLAG NO
[2023-10-19 11:33] LABS: Basophils Percent Auto 0.5 % (0-2); Eosinophils Absolute Auto 0.1 X10*3/uL (0.0-0.4); Eosinophils Percent Auto 1.1 % (0-4); Hematocrit 39.9 % (37.0-47.0); Hemoglobin 12.6 g/dl (12.0-16.0); Imm Gran Abs Auto 0.03 X10*3/uL (0.00-0.03); Imm Gran Pct Auto 0.4 % (0.0-0.4); Lymphocytes Absolute Auto 2.7 X10*3/uL (1.2-4.9); Lymphocytes Percent Auto 32.3 % (20-40); Mean Corpuscular HGB Conc 31.6 g/dl (31.0-35.0); Mean Corpuscular Hemoglobin 26.7 pg (27.0-33.0); Mean Corpuscular Volume 84.5 fL (80.0-98.0); Mean Platelet Volume 12.4 fL (9.4-12.3); Monocytes Absolute Auto 0.3 X10*3/uL (0.1-1.2); Neutrophils Absolute Auto 5.2 x10*3/uL (2.0-8.3); Neutrophils Percent Auto 61.7 % (45-73); Platelet Count 291 X10*3/uL (160-400); Red Blood Count 4.72 X10*6/uL (4.20-5.50); Red Cell Distribution Width 13.7 % (11.0-16.0); White Blood Count 8.4 X10*3/uL (4.8-10.8)
[2023-10-19 11:51] LABS: Estimated Average Glucose 108 mg/dL; Hemoglobin A1c % 5.4 % (<6.0)
[2023-10-19 12:04] LABS: Alanine Aminotransferase 17 U/L (0-31); Albumin Level 4.2 g/dL (3.5-5.0); Alkaline Phosphatase 63 U/L (39-117); Anion Gap 11 (12-20); Aspartate Amino Transferase 15 U/L (5-31); Bilirubin Total 0.5 mg/dL (0.0-1.0); Blood Urea Nitrogen 15 mg/dL (9-16); Calcium 9.9 mg/dL (8.4-10.2); Carbon Dioxide 31 mmol/L (22-29); Chloride 105 mmol/L (96-108); Cholesterol 197 mg/dL (<200); Estimated Glomerular Filt Rate > 60; Glucose Random 101 mg/dL (60-115); HDL Cholesterol 45 mg/dL (>40); LDL Cholesterol Calculated 139 mg/dL (<100); Potassium 4.5 mmol/L (3.3-5.1); Sodium 142 mmol/L (135-145); Total Protein 7.5 g/dL (6.5-8.0); Triglycerides 69 mg/dL (<150)
[2023-10-19 12:16] LABS: HIV AB/AG Nonreactive (Nonreactive); HIV Num 1 0.04 S/CO (0.00-0.99)
[2023-10-19 12:22] LABS: TSH reflex Free T4 1.25 uIU/mL (0.32-4.0); Vitamin D 25-OH Total 19.1 ng/mL (>30)
[2023-10-21 15:34] LABS: HCV Log PCR <1.18 NOT DETECTED Log IU/mL (NOT DETECTED); HepC Viral Load <15 NOT DETECTED IU/mL (NOT DETECTED)
[2023-10-23 12:33] LABS: RPR Rapid Plasma Reagin NON-REACTIVE (NON-REACTIVE)
== END 2023-10-19 10:29 | disposition home or self-care (01) ==
LOC: HO.HHCL 10:28
PROVIDERS: Visit Provider Registered Nurse
DX: Z00.00 Encounter for general adult medical examination without abnormal findings (principal); L65.9 Nonscarring hair loss, unspecified
CPT/HCPCS: 36415; 80053; 80061; 82306; 83036; 84443; 85025; 86592; 87389; 87522

== ENCOUNTER 2023-11-21 14:58 | Emergency (ER) | payer MEDICAID, SELFPAY ==
--- NOTE | ~2023-11-21 | XR_ITS ---
EXAMINATION: XR HAND/WRIST, RIGHT CLINICAL INFORMATION: pain Additional Information: Pt states pain started a few days ago. Today her son bent her hand. Pt states she got surgery on it last year. COMPARISON: None TECHNIQUE: Four views of the right hand and wrist. FINDINGS: The bones and soft tissues are normal. No fracture. Alignment is anatomic. Joint spaces are maintained. No erosions or soft tissue calcifications. XR/XR hand wrist RT IMPRESSION: Normal radiographs of the hand and wrist.
[2023-11-21 15:42] VITALS: BP 134/68; PULSE 60; RESP 18; TEMP 36.7; O2SAT 98; BMI 47.2
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
--- OUTSIDE RECORDS SUMMARY | 2023-11-21 15:52 | XMS_ITS | Continuity of Care Document ---
Author Organization [facility] y Address [address] [place] [address], [address] [place] [address]- Care Team Providers Care Pigment Pumper Name Role Phone Marie BINDERY CUTTER OPERATOR, Dione Vela Primary Care Florina duffy Encounter [facility] Date(s): 10/19/20 - 10/26/20 [facility] [address] [place] [address], [address] [place], [place] [address] Attending Physician: Kellie Ribeiro DO Referring Physician: Arlyn Walker Allergies, Adverse Reactions, Alerts Substance Reaction Severity Status NKA Active Vital Signs Most recent to oldest [Reference Range]: 1 Height 165.11 cm (10/19/20 8:48 AM) Weight 127 kg (10/19/20 8:48 AM) Body Mass Index [18.5-24.99] 46.59 *>HHI* (10/19/20 8:48 AM)
--- OUTSIDE RECORDS SUMMARY | 2023-11-21 15:53 | XMS_ITS | Continuity of Care Document ---
Author Organization [facility] ter Address [address] [place] [id number]- Care Team Providers Care Roof Truss Detailer Name Role Phone Marie BRIM WELT SEWING MACHINE OPERATOR, Dione Vela Primary Care Florina duffy Encounter [facility] Date(s): 07/05/23 - 07/05/[address] [address]- Discharge Disposition: Transferred to short-term general hospit Attending Physician: Rusty Bernal MD Admitting Physician: Rusty Bernal MD Referring Physician: Not on Staff, Referring MD Allergies, Adverse Reactions, Alerts No Known Allergies Medications acetaminophen-oxyCODONE 325 mg-5 mg oral tablet 1, tablet, By Mouth, Every 6 hours, PRN, # 28 tablet, Refills 0, Tot. Refills 0, Maintenance, for pain, 11/24/20 13:46:00 EDT, Route to Pharmacy Electronically, [id number] Tablet, Partial fill upon patient request if the prescription is for a... Start Date: 11/24/20 Status: Ordered Keflex monohydrate 500 mg oral capsule 1 capsule = 500 mg, By Mouth, Every 12 hours, # 6 capsule, 0 Refills, Maintenance, 11/24/20 13:46:00 EDT, Capsule, [id number], Partial fill upon patient request if the prescription is for a schedule II opioid drug., 165.1, cm, 11/24/20 11:20:0... Start Date: 11/24/20 Status: Ordered tiZANidine 4 mg oral tablet 4 mg, 1, tablet, By Mouth, 3 times a day, # 90 tablet, Refills 0, Tot. Refills 0, Maintenance, 11/24/20 13:45:00 EDT, Route to Pharmacy Electronically, [id number], Partial fill upon patient request if the prescription is for a schedule II opio... Start Date: 11/24/20 Status: Ordered Vital Signs Most recent to oldest [Reference Range]: 1 2 Height 165 cm (07/05/23 8:15 AM) Oxygen Saturation [94-100 %] 100 % (07/05/23 8:15 AM) 100 % (07/05/23 8:11 AM) Pulse Rate [55-90 bpm] 66 bpm (07/05/23 8:15 AM) 71 bpm (07/05/23 8:11 AM) Blood Pressure [90-138/55-84 mm Hg] 151/ 70mm Hg *H* (07/05/23 8:15 AM) Respiratory Rate [16-30 br/min] 18 br/mi n (07/05/23 8:15 AM) Temperature [96.8-100.4 DegF] 97.9 DegF (07/05/23 8:15 AM) Mode of Delivery (Oxygen) Room air (07/05/23 8:15 AM) Room air (07/05/23 8:11 AM) Blood pressure sites Arm, left (07/05/23 8:15 AM) Temperature Route Oral (07/05/23 8:15 AM) Dry Weight 122.7 kg (07/05/23 8:15 AM) Patient Care team information Care Team Related Persons Name: PT STATES NO ONE, NO ONE
--- OUTSIDE RECORDS SUMMARY | 2023-11-21 15:53 | XMS_ITS | Continuity of Care Document ---
Author Organization [facility] ter Address [address] [place] [id number]- Care Team Providers Care Office Inspector Name Role Phone Marie LEAD CASE MANAGER, Dione Vela Primary Care Florina duffy Encounter [facility] [place] Date(s): 07/05/23 - 07/05/[address] [address]- Discharge Disposition: A-D/C Home Attending Physician: Edda Donaldson DO Admitting Physician: Edda Donaldson DO Referring Physician: Edda Donaldson DO Allergies, Adverse Reactions, Alerts No Known Allergies Medications acetaminophen-oxyCODONE 325 mg-5 mg oral tablet 1, tablet, By Mouth, Every 6 hours, PRN, # 28 tablet, Refills 0, Tot. Refills 0, Maintenance, for pain, 11/24/20 13:46:00 EDT, Route to Pharmacy Electronically, [facility]/pharmacy #[id number] Tablet, Partial fill upon patient request [...] 11/24/20 13:45:00 EDT, Route to Pharmacy Electronically, [facility]/pharmacy #[id number], Partial fill upon patient request if the prescription is for a schedule II opio... Start Date: 11/24/20 Status: Ordered Results Orders for Microbiology Reports Name Date Urine Culture (URINE CULTURE) 07/05/23 Microbiology Reports TEST:Urine Culture STATUS:Unauthenticated BODY SITE: SOURCE:URINE COLLECTED DATE/TIME:07/05/23 9:40 AM Urine Culture SPECIMEN DESCRIPTION : URINE SPECIAL REQUESTS : NONE Reflexed from [id number] REPORT STATUS : PRELIMINARY REPORT Radiology Reports * Exam Date Time Procedure Performing Provider Status 07/05/23 10:25 AM US Uterus Transvaginal Selena Wynne; Auth (Verified) Notes: (US Uterus Transvaginal) Reason For Exam: Other: RESULT: US Uterus Transvaginal US Uterus Transvaginal Reason: Bleeding in early ; Order Comment: COMPARISON: None TECHNIQUE: Transvaginal pelvic ultrasound with grayscale and color Doppler analysis. FINDINGS: Last menstrual period (LMP): 04/29/2023. Gestational age (GA) by LMP: 9w4d. UTERUS AND GESTATIONAL STRUCTURES: Gestational sac without a yolk sac is identified within the left endometrial cavity. Gestational sac measures 1.4 x 1.1 x 1.4 cm, for a mean sac diameter of 1.3 cm. No yolk sac or embryo are seen. Uterus: 10.7 x 6.2 x 7.4 cm, volume 256.1 cc. No masses. Nabothian cysts seen within the cervix. RIGHT OVARY: Size: 3.3 x 3.1 x 2.0 cm, volume 10.6 cc. Morphology: Normal echotexture. No pathologic cysts or mass. Normal color Doppler appearance. LEFT OVARY: Size: 3.1 x 2.0 x 2.9 cm, volume 9.3 cc. Morphology: Normal echotexture. No pathologic cysts or mass. Normal color Doppler appearance. FREE FLUID: None. IMPRESSION: A gestational sac with a mean sac diameter of 1.3 cm is visualized within the left endometrial cavity. No yolk sac or embryo are seen. While the findings may represent early , given the LMP date and estimated gestational age of 9 weeks 4 days the appearance may raises suspicion for a failed . Recommend correlation with beta hCGs and short-term interval follow-up ultrasound in 10-14 days. Findings were discussed with Lamar Johnson CNP at 10:50 AM via telephone . I have personally reviewed the images and I agree with this report. WSN: [id number] Ordering Physician: Lamar Johnson Dictated By: Loretta Guzman DO Dictated Date/Time: 07/05/23 11:26 a Reviewed By: Ciro Palafox MD Signed By: Ciro Palafox MD Signed Date/Time: 07/05/23 11:31 am Transcribed By: MIKE Transcribed Date/Time: 07/05/23 10:54 am Vital Signs Most recent to oldest [Reference Range]: 1 Blood Pressure [90-138/55-84 mm Hg] 139/ 52mm Hg *H* (07/05/23 9:07 AM) Respiratory Rate [16-30 br/min] 18 br/mi n (07/05/23 9:07 AM) Temperature [96.8-100.4 DegF] 98 DegF (07/05/23 9:07 AM) Blood pressure sites Arm, left (07/05/23 9:07 AM) Temperature Route Oral (07/05/23 9:07 AM) Note * Bernice Lynn RN: PERFORM Event Display: Discharge/Transfer Note Hospital Authored Date: Nursing Discharge Note Entered On: 07/05/2023 11:33 EST Performed On: 07/05/2023 11:32 EST by Bernice Lynn RN Nursing Discharge Note 2 Discharge Time : 07/05/2023 11:30 EST Discharge Level of Care at Discharge : Home/Intermediate/Foster Care Patient Left Unit Via : Ambulatory Patient Accompanied Off Unit with : Other: self DC Instructions Provided & Signed by Pt : Yes Patient Understands D/C Instructions : Yes Patient Instructions Discharge Signed : Yes Did Pt have Specialty Bed or Wound Vac : No Bernice Lynn RN - 07/05/2023 11:32 EST * Bernice Lynn RN: PERFORM Event Display: Patient Education/Instruction Authored Date: [id number] Inpatient Adult Discharge Instructions. [address] [address] Name: KYMBERLY EASLEY: 1990?? Visit: 07/05/2023 08:27?? Current Date: 07/05/2023 11:19 ?? Account: [id number]?? Inpatient Adult Discharge Instructions We would like to thank you for allowing us to assist you with your healthcare needs. The following includes patient education materials and information regarding your injury/illness. Our entire staffstrives to provide an excellent experience for our patients and their families. PLEASE ENSURE YOU FOLLOW-UP PER THE INSTRUCTIONS BELOW! ?? YOUR OPINION IS IMPORTANT TO US! Please complete the survey you may receive by mail or email. Your feedback will be used to make improvements to the healthcare experiences of our patients and their families. Surveys are administered by [employer]. ?? If further treatment with your primary care physician or another doctor is recommended, it is important for you to keep the appointment. Call your primary care physician or return to the Emergency Department immediately if your condition worsens, fails to improve, or new symptoms develop. If you need to find a doctor, you can call [facility] Link for a referral at [phone] or toll free at [phone]) or log in to [email or web address] ?? [facility], in keeping with [facility] guidance, no longer requires face masks for staff, patientsor visitors in most situations. Similiar to time spent indoors at other locations, there is the chance that you were exposed to repiratory viruses during your time with us (such as flu or COVID-19). If you develop symptoms concerning for a viral respiratory infection, please seek testing (and treatment if indicated) from your medical provider or home test kit. ?? You can view and manage your care through the patient portal or by using a health care danial of your choosing. [employer] is a website that allows you to securely view your medical information including your hospital discharge summary, office visit summaries, medications and follow-up visits. You can also request appointments, renew medications, and request access to your medical information using a health care danial of your choosing, or just ask a question. You can enroll at [email or web address] or register during your next office visit. You have been discharged from [facility], Patient Care Unit: WETU1??. If you have any questions regarding these instructions, including results of studies pending, afteryou leave, please call us and we will be happy to assist you 05/12. [facility] Your Care Team Attending Physician Edda Donaldson DO?? Consulting Providers Edda Donaldson DO?? Your Diagnosis Dysuria in Bleeding in early Tests Performed Below is a partial list of the tests performed during your hospitalization. You may have had other tests and procedures not included in this list. Please discuss all test results with your provider. Beta HCG Serum (Females Only) CBC Urinalysis Complete/Reflex Culture Type and Screen?? US Uterus Transvaginal?? Urine Culture?? Primary Care Provider Marie CASTANEDA, Dione Vela? Discharge Vitals Temperature: 98 DegF Respiratory Rate: 18 br/min Systolic Blood Pressure:??139 mm Hg??High Diastolic Blood Pressure:??52 mm Hg??Low Studies Pending All studies ordered during this hospital stay have been completed unless listed below. Please discuss all pending results with your provider listed above in these instructions. ?? Type and Screen?? US Uterus Transvaginal?? Urine Culture?? What to do next Instructions From Your Doctor ?? Orders?? You Need to Schedule the Following Appointments Follow Up with??Edda Donaldson DO Why: Follow up with your SHEEP AND WHEAT FARMER as scheduled or needed. ?? Where: [address] [place] [address] [employer] [place] [address]- Discharge Medications KYMBERLY AUGUSTIN :1990 Visit Date:07/05/2023 Medications: Please continue your medications until treatment is completed or stopped by your provider. Medications not listed below should be discontinued. Discuss any questions related to medications with your provider. What How Much When Instructions Next Dose Unchanged Cephalexin (Keflex monohydrate 500 mg oral capsule) 1 capsule Oral Every 12 hours Unchanged Oxycodone / Acetaminophen (acetaminophen-oxyCODONE 325 mg-5 mg oral tablet) 1 tab(s) Oral Every 6 hours as needed for for pain Unchanged Tizanidine (tiZANidine 4 mg oral tablet) 1 tab(s) Oral 3 times a day Prescription Given During Visit No new medications prescribed at time of discharge.?? Laboratory Results Below is a partial list of the most recent Laboratory test results done prior to this discharge. You may have had other tests and procedures not included in this list. Please discuss all test resultswith your provider. Beta HCG Serum (Females Only) (07/05/2023) ???Blood - 59673 mIU/mL CBC (07/05/2023) ???WBC - 12.1 k/mm3???RBC - 4.57 m/mm3???Hgb - 11.9 Gm/dL???Hct - 38.7 %???MCV - 84.7 femtoliters???MCH - 26.0 pg???MCHC - 30.7 g/dL???Platelet Count - 240 k/mm3???RDW-SD - 42.9 femtoliters???MPV - 13.3 femtoliters???Nucleated RBC (Automated) - 0.0 #/100 WBC'S???Abs. NRBC - 0.0 k/mm3 Urinalysis Complete/Reflex Culture (07/05/2023) ? ?Appear/Color, Urine - COLORLESS? ?Clarity - TURBID? ?Specific [place], Urine - <1.005? ?pH, Urine - 6.5???Albumin, Urine - NEGATIVE???Glucose, Urine - NEGATIVE???Ketones, Urine - NEGATIVE???Bilirubin, Urine - NEGATIVE???Hemoglobin, Urine - 3+???Nitrite, Urine - NEGATIVE???Leukocyte, Urine - 3+???Urobilinogen - NORMAL???WBC's, Urine - 30 /HPF???RBC's, Urine - 8 /HPF???Bacteria - MODERATE???Squamous Epith - 5 /HPF???Mucus - SLIGHT???Culture Indication - CULTURE INDICATED Allergies (NKA means No Known Allergies) NKA Problems Active Problems??(1) ?? Education Materials Below is the list of Educational Leaflet Providered with your Discharge Instructions. Valuables and Belongings I fully understand and agree that [facility] accepts no responsibility for all my personal property including clothing, toilet articles, radios, jewelry, dentures, hearing aids, rings, money, or any other property that is in my possession or is brought to me after admission. I understand certain valuables may be placed in a hospital safe for a short period of time. I understand that the hospital is not liable for loss or damage due to accident, fire, or other natural occurrence while said property is in the safe. I accept full responsibility for any personal property that I keep with me, and will not hold the hospital responsible in case of loss or disappearance. I acknowledge that i have been encouraged to send valuables and belongings home. ? Other Discharge Information ? Pulmonary Rehab Status?? Pulmonary Rehab Discharge Status?? Respiratory Rate: 18 br/min ? Common Emergency Awareness Tips IS IT A STROKE? Act FAST and Check for these signs: FACE Does the face look uneven? ARM Does one arm drift down? SPEECH Does their speech sound strange? TIME Call at any sign of stroke ?? Heart Attack Signs Chest discomfort: Most heart attacks involve discomfort in the center of the chest and lasts more than a few minutes, or goes away and comes back. It can feel like uncomfortable pressure, squeezing, fullness or pain. Discomfort in upper body: Symptoms can include pain or discomfort in one or both arms, back, neck, jaw or stomach. Shortness of breath: With or without discomfort. Other signs: Breaking out in a cold sweat, nausea, or lightheaded. Remember, MINUTES DO MATTER. If you experience any of these heart attack warning signs, call to get immediate medical attention! ?? Smoking can increase your chances of developing chronic health problems and can cause harmful effects to other family members in your house. If you smoke, you are strongly encouraged to quit. Please call [facility] Link at [phone] or [phone]) or log in to [email or web address] for referrals to smoking cessation programs. ?? 120 Suicide & Crisis Lifeline is available 05/12 if you or someone you know needs to find a reason to keep living. By calling 962 you'll be connected to a skilled, trained counselor at a crisis center in your area. INPATIENT DISCHARGE INSTRUCTIONS SIGNATURE PAGE KYMBERLY AUGUSTIN Location:[facility] Registration Date and Time:07/05/2023 08:27 [facility] Primary Care Physician: Dione Salazar NP, Attending Physician: Edda Donaldson DO, I KYMBERLY AUGUSTIN, have received the above patient education materials/instructions and have verbalized understanding. If ambulance or transport services are being used I further acknowledge being given a choice of service. ?? If you need to contact me, please call me at this number: . Patient/Elevator Repair Mechanic Name: Patient/Elevator Repair Mechanic Signature: Relationship to Patient: Witness Name/Signature: Date: * Bernice Lynn RN: PERFORM Event Display: Patient Education Leaflets Authored Date: [id number] Bleeding During Early ?? [address] Bleeding During Early If you???ve had bleeding early in your , you???re not alone. Many other women have early bleeding, too. And in most cases, nothing is wrong. But your healthcare provider still needsto know about it. They may want to do tests to find out why you???re bleeding. Call your provider if you see bleeding during . Tell your provider if your blood is Rh negative. Then they can figure out if you need anti-D immune globulin treatment. What causes early bleeding? The cause of bleeding early in is often unknown. But many factors early on in may lead to light bleeding (called spotting) or heavier bleeding. These include: ??? Having sex ??? When the embryo implants on the uterine wall ??? Bleeding between the sac membrane and the uterus (subchorionic bleeding) ??? loss (miscarriage) ??? The embryo implants outside of the uterus (ectopic ) ?? If you see spotting Light bleeding is the most common type of bleeding in early . If you see it, call your healthcare provider. Chances are, they will tell you that you can care for yourself at home. ?? If tests are needed Depending on how much you bleed, your healthcare provider may ask you to come in for some tests. A pelvic exam, for instance, can help see how far along your is. You also may have an ultrasound or a Doppler test. These imaging tests use sound waves to check the health of your baby. The ultrasound may be done on your belly or inside your vagina. You may also need a special blood test. This test compares your hormone levels in blood samples taken 2 days apart. The results can help your provider learn more about the implantation of the embryo. Your blood type will also need to be checked to assess if you will need to be treated for Rh sensitization.?? Ultrasound can help check the health of your fetus. ?? Warning signs If your bleeding doesn???t stop or if you have any of the following, get medical care right away: ??? Soaking a sanitary pad each hour ??? Bleeding like you???re having a period ??? Cramping or severe belly pain ??? Feeling dizzy or faint ??? Tissue passing through your vagina ??? Bleeding at any time after the first trimester ?? Questions you may be asked Bleeding early in isn't normal. But it is common. If you???ve seen any bleeding, you may be concerned. But keep in mind that bleeding alone doesn???t mean something is wrong. Just be sure to call your healthcare provider right away. They may ask you questions like these to help find the cause of your bleeding: ??? When did your bleeding start? Is your bleeding very light or is it like a period? Is the blood bright red or brownish? Have you had sex recently? Have you had pain or cramping? Have you felt dizzy or faint? ?? Monitoring your Bleeding will often stop as quickly as it began. Your may go on a normal path again. You may need to make a few extra visits. But you and your baby will most likely be fine. ?? Last Reviewed Date: 2021 ?? [id number] [employer]. All rights reserved. This information is not intended as a substitute for professional medical care. Always follow your healthcare professional's instructions. ?? Patient Care team information Care Team Personnel Name: Bernice Lynn RN Position: Shaina OB RN Member Role: OB RN Care Team Related Persons Name: PT STATES NO ONE, NO ONE
--- OUTSIDE RECORDS SUMMARY | 2023-11-21 15:53 | XMS_ITS | Continuity of Care Document ---
Author Organization [facility] y Address [address] [place] [address], [address] [place] [address]- Care Team Providers Care Patent Prosecution Paralegal Name Role Phone Marie ESTATE PLANNING ATTORNEY, Dione Vela Primary Care Florina rivasjeronimo [place] [facility] [place] 12/23[place]20 - 01/22/21 [facility] [address] [place] [address], [address] [place], [place] [address] Attending Physician: AdmCipriano [email or web address] Admitting Physician: Admtr, Ar8 Referring Physician: Admtr, Ar8 Allergies, Adverse Reactions, Alerts Substance Reaction Severity Status NKA Active Medications acetaminophen-oxyCODONE 325 mg-5 mg oral tablet 1, tablet, By Mouth, Every 6 hours, PRN, # 28 tablet, Refills 0, Tot. Refills 0, Maintenance, for pain, 11/24/20 13:46:00 EDT, Route to Pharmacy Electronically, [facility]/pharmacy #[id number] Tablet, Partial fill upon patient request [...] 11/24/20 13:45:00 EDT, Route to Pharmacy Electronically, [facility]/pharmacy #[id number], Partial fill upon patient request if the prescription is for a schedule II opio... Start Date: 11/24/20 Status: Ordered
--- OUTSIDE RECORDS SUMMARY | 2023-11-21 15:53 | XMS_ITS | Continuity of Care Document ---
Author Organization [facility] ter Address [address] [place] [address]- Care Team Providers Care Driver Education Road Instructor Name Role Phone Marie OPTOMETRIST/PRACTICE OWNER, Dione Vela Primary Care Florina duffy [place] [facility] [place] - 07/07/[address] [address]- Discharge Disposition: A-D/C Home Attending Physician: Jolie Pedro DO Admitting Physician: Jolie Pedro DO Referring Physician: Jolie Pedro DO Allergies, Adverse Reactions, Alerts No Known Allergies Medications acetaminophen 325 mg oral capsule 2 capsule = 650 mg, By Mouth, Every 4 hours, PRN as needed for pain, # 120 capsule, 1 Refills, Maintenance, 07/07/23 0:22:00 EST, Capsule, [facility]/pharmacy #[id number], 165, cm, 07/06/23 21:39:00 EST, Height, 99, kg, 07/06/23 21:39:00 EST, Dry Weight Start Date: 07/07/23 Stop Date: 07/27/23 Status: Ordered ibuprofen 600 mg oral tablet 600 mg, 1, tablet, By Mouth, Every 6 hours, # 40 tablet, Refills 1, Tot. Refills 1, Maintenance, 07/07/23 0:20:00 EST, Route to Pharmacy Electronically, [facility]/pharmacy #[id number], 165, cm, 07/06/23 21:39:00EST, Height, 99, kg, 07/06/23 21:39:00 EST, Dry Weight Start Date: 07/07/23 Stop Date: 07/27/23 Status: Ordered Keflex monohydrate 500 mg oral [...] 11/24/20 13:45:00 EDT, Route to Pharmacy Electronically, [id number], Partial fill upon patient request if the prescription is for a schedule II opio... Start Date: 11/24/20 Status: Ordered Problem List Condition Confirmation Course Effective Dates Status Health St atus Informant Spontaneous Confirmed Active Vital Signs Most recent to oldest [Reference Range]: 1 Weight 121.2 kg (07/06/23 9:52 PM) Oxygen Saturation [94-100 %] 100 % (07/06/23 9:52 PM) Pulse Rate [55-90 bpm] 80 bpm (07/06/23 9:52 PM) Blood Pressure [90-138/55-84 mm Hg] 140/ 57mm Hg *H* (07/06/23 9:52 PM) Respiratory Rate [16-30 br/min] 20 br/mi n (07/06/23 9:52 PM) Temperature [96.8-100.4 DegF] 99 DegF (07/06/23 9:52 PM) Mode of Delivery (Oxygen) Room air (07/06/23 9:52 PM) Blood pressure sites Arm, right (07/06/23 9:52 PM) Temperature Route Oral (07/06/23 9:52 PM) Weight Obtained Via Standing scale (07/06/23 9:52 PM) Note * Kareen Vincent RN: PERFORM Event Display: Discharge/Transfer Note Hospital Authored Date: [id number] Nursing Discharge Note Entered On: 07/07/2023 0:36 EST Performed On: 07/07/2023 0:35 EST by Kareen Vincent RN Nursing Discharge Note 2 Discharge Time : 07/07/2023 0:29 EST Discharge Level of Care at Discharge : Home/Half-Way/Foster Care Patient Left Unit Via : Ambulatory Patient Accompanied Off Unit with : Significant other DC Instructions Provided & Signed by Pt : Yes Patient Understands D/C Instructions : Yes Verbalized Understanding of D/C Plan By : Patient Patient Instructions Discharge Signed : Yes Did Pt have Specialty Bed or Wound Vac : No Kareen Vincent RN - 07/07/2023 0:35 EST * Kareen Vincent RN: PERFORM Event Display: Patient Education/Instruction Authored Date: Inpatient Adult Discharge Instructions. [address] [address] Name: KYMBERLY CASTANEDA : 1990?? Visit: 07/06/2023 21:32?? Current Date: 07/07/2023 00:20 ?? Account: [id number]?? Inpatient Adult Discharge Instructions We would like [...] and their families. Surveys are administered by [employer] ?? If further treatment with your primary care physician or another doctor is recommended, it is important for you to keep the appointment. Call your primary care physician or return to the Emergency Department immediately if your condition worsens, fails to improve, or new symptoms develop. If you need to find a doctor, you can call [facility] for a referral at [phone] or toll free at [phone] ([phone]) or log in to [email or web address].. ?? [facility], in keeping with [facility] guidance, no longer requires face masks [...] a health care danial of your choosing. [employer] is a website that allows you to securely view your medical information including your hospital discharge summary, office visit summaries, medications and follow-up visits. You can also request appointments, renew medications, and request access to your medical information using a health care danial of your choosing, or just ask a question. You can enroll at [email or web address] or register during your next office visit. You have been discharged from [facility], Patient Care Unit: [id number]??. If you have any questions regarding these instructions, including results of studies pending, afteryou leave, please call us and we will be happy to assist you 05/12. [facility] Your Care Team Attending Physician Jolie Pedro DO?? Consulting Providers Jolie Pedro DO?? Tests Performed Below is a partial list of the tests performed during your hospitalization. You may have had other tests and procedures not included in this list. Please discuss all test results with your provider. Beta HCG Serum (Females Only) No tests performed during this visit.?? Primary Care Provider Marie CASTANEDA, Dione Vela? Discharge Vitals Temperature: 99 DegF Weight: 121.2 kg Pulse Rate: 80 bpm ?? Respiratory Rate: 20 br/min ?? Systolic Blood Pressure:??140 mm Hg??High ?? Diastolic Blood Pressure: 57 mm Hg ?? Oxygen Saturation: 100 % ?? Studies Pending All studies ordered during this hospital stay have been completed unless listed below. Please discuss all pending results with your provider listed above in these instructions. ?? No incomplete studies found?? What to do next Instructions From Your Doctor ?? Orders?? You Need to Schedule the Following Appointments Follow Up with??[facility] [employer] [facility] [phone] Why: keep scheduled OB appointments Discharge Medications KYMBERLY AUGUSTIN :1990 Visit Date:07/06/2023 Medications: Please continue your medications until treatment [...] your provider. Beta HCG Serum (Females Only) (07/06/2023) ???Blood - 5954 mIU/mL Allergies (NKA means No Known Allergies) NKA Problems Active Problems??(1) ?? Education Materials Below is the list of Educational Leaflet Providered with your Discharge Instructions. WebNoxilizer Ignite Patient Education - Understanding Miscarriage: Emotions?? WebNoxilizer Ignite Patient Education - Understanding Miscarriage: Recovery?? WebMD Ignite Patient Education - Completed Spontaneous Miscarriage?? WebNoxilizer Ignite Patient Education - Discharge Instructions for Miscarriage?? Valuables and Belongings I fully understand and agree that [facility] accepts no responsibility for all [...] Status?? Pulmonary Rehab Discharge Status?? Respiratory Rate: 20 br/min ? Common Emergency Awareness Tips IS [...] are strongly encouraged to quit. Please call [facility]allindex Link at [phone] or [phone] ([phone]) or log in to [email or web address] for referrals to smoking cessation programs. ?? 474 Suicide & Crisis Lifeline is available 05/12 if you or someone you know needs to find a reason to keep living. By calling 648 you'll be connected to a skilled, trained counselor at a crisis center in your area. INPATIENT DISCHARGE INSTRUCTIONS SIGNATURE PAGE KYMBERLY AUGUSTIN Location:[facility] Registration Date and Time:07/06/2023 21:32 EST Primary Care Physician: Dione Salazar NP, Attending Physician: Jolie Pedro DO, I KYMBERLY AUGUSTIN, have received the above patient education materials/instructions and have verbalized understanding. If ambulance or transport services are being used I further acknowledge being given a choice of service. ?? If you need to contact me, please call me at this number: . Patient/Fiscal Analyst Name: Patient/Fiscal Analyst Signature: Relationship to Patient: Witness Name/Signature: Date: * Kareen Vincent RN: PERFORM Event Display: Patient Education Leaflets Authored Date: [id number] Understanding Miscarriage: Emotions ?? [id number] Understanding Miscarriage: Emotions Miscarriage is the unplanned end of a before 20 weeks.??When a miscarriage happens, you???re likely to have a wide range of feelings. Let yourself accept how you feel. Only then can you begin to move on. No one is to blame Know that you did not cause this to happen. Miscarriage is very common. There is a 15% chance of miscarriage with each (after has been diagnosed). Miscarriage usually takes place during the first 10 weeks after conception. ?? Grief takes many forms Grief may be the first thing you feel, or it may happen to you later. You may grieve because the future you hoped for feels lost. Grief is painful and often lonely. But??a miscarriage is often easierto deal with over time. ?? What you feel is OK No one can tell you how to respond to your miscarriage. If you've been trying to have a child, thisloss may feel overwhelming. Perhaps this was an unplanned . That doesn???t mean you won???t feel loss. You know yourself best. It???s??OK to feel whatever you feel. ?? A sense of loss No matter what you thought about being , having a miscarriage may cause a sense of loss. You may feel as if something is missing. It???s OK if you can???t describe how you feel. At first, it may be enough just to sit with and feel your emotions. ?? A note for partners Partners grieve, too. You may be feeling sad, helpless, or frustrated. When you???re struggling with your own feelings, knowing how to help your partner may be hard. But do your best to provide support. It can help to: ??? Be kind to yourself and your partner. ??? Spend time together. ??? Fix a meal or bring dinner home. ??? Rent a movie. ??? If you have children, spend extra time with them. ?? Last Reviewed Date: 2021 ?? [id number] [employer]. All rights reserved. This information is not intended as a substitute for professional medical care. Always follow your healthcare professional's instructions. ?? * Kareen Vincent RN: PERFORM Event Display: Patient Education Leaflets Authored Date: [id number] Understanding Miscarriage: Recovery ?? [id number] Understanding Miscarriage: Recovery Your body has had a shock to its system. Because of this, you may not feel well for a few days. Your body is going through changes, and you can expect mood swings. When you are ready, start back to your normal routine. Mood swings The miscarriage has caused a sudden drop in your hormone levels. This is likely to produce mood swings or make your emotions even more extreme. Stress and lack of sleep can also affect your moods. Asyour body returns to normal, these mood swings should lessen. ?? Returning to your daily routines You are the best nougat candy maker helper of how you feel. Do only as much as you feel up to. Also be sure to follow your healthcare provider???s directions. Keep the following in mind: ??? Return to work or your dailyroutines when you feel ready. This might be right away, or you may want to wait a few days. ??? Take showers instead of tub baths. This helps prevent infection. Your??healthcare provider will tell you when you can take baths again. ??? Don't do strenuous exercise, such as aerobics or running, untilthe bleeding slows to the rate of a normal period. ??? Wait to have sex, and don???t use tampons until your??healthcare provider says it's OK. ??? Do not douche. ?? Finding support Recognize your need to talk. Ask for support when you want it. And accept help when it???s offered.Although sharing thoughts with your partner is vital, you may also feel like talking with other family members or friends. ?? Look nearby The real experts on miscarriage are the women who have gone through it. Because miscarriage is so common, it???s likely that someone close to you has had one. You may begin to see that you???re not alone in experiencing such a loss. ?? Other sources of support Many women find it easier to talk to people who are not family or friends. If this is true for you,try contacting the following: ??? Share: and Infant Loss Support at www.nationalshare.org??? Resolve Through Sharing at www.bereavementservices.org ??? Loss Support Program at www .pregnancyloss.org ?? When to call the healthcare provider It???s normal to be sad for a while. You may even feel sad until you???re again. Be sure to call your??healthcare provider if either of the following occur: ??? You continue to have no interest in eating or are not able to sleep. ??? Your depression does not decrease. Or you get more upset. ?? Last Reviewed Date: 2022 ?? [id number] [employer] [facility]. All rights reserved. This information is not intended as a substitute for professional medical care. Always follow your healthcare professional's instructions. ?? * Kareen Vincent RN: PERFORM Event Display: Patient Education Leaflets Authored Date: [id number] Completed Spontaneous Miscarriage ?? [id number] Completed Spontaneous Miscarriage Today's exams show that you have had a miscarriage. This is the unplanned end of a esdnol04 weeks. When a miscarriage happens, you???re likely to have a wide range of feelings. Completed miscarriage means that the embryo or fetus, placenta, and other tissues are passed out ofthe uterus with bleeding. It???s important to know that you did not cause this to happen. Miscarriage is very common. About 1or 2 out of every [address] Miscarriage usually takes place in the first 10 weeks after conception. It may happen before you know you are . It may happen for many reasons. Often the cause is not known. Miscarriage is not your fault. It didn???t happen because you did something wrong. Sex or exercise does not cause a miscarriage. These activities are safe unless your healthcare provider tells you tostop. Even a minor fall won???t cause a miscarriage. It appears that your miscarriage is complete. This means that all tissue from the should have passed out of your uterus. If some of the tissue??is still in your uterus, you will have more cramping and bleeding.??The bleeding can be light spotting or like a period. It's usually not heavy. You may also pass some tissue. After you have recovered, you should be able to get again. Before trying, talk with your healthcare provider. Home care After you go home: ??? You may not feel well for a few days. Your body is going through changes. You will have mood swings. ??? You may have some cramping and bleeding, but it shouldn???t be severe. ??? When you are ready, you can start to go back to your normal routine. Until the bleeding stops fully, to prevent infection: ??? Don???t have sex until your healthcare provider says it???s OK. ??? Don???t use tampons. Use pads instead. ??? Don???t use douche. Having a miscarriage is stressful and upsetting. It's natural to feel sadness or grief. Partners grieve, too. It may help to talk about your feelings with family, friends, a counselor, or environmental projects advisor. ?? Follow-up care See your healthcare provider in 1 to 2 weeks for a checkup. If you had an ultrasound, a radiologistwill look at it. You will be told of any results that may affect your care. If you have cramping and bleeding for more than a few days, call your healthcare provider. You willneed another exam. Your provider might need to take out the tissue with surgery. This is to preventinfection in your uterus. Or you may be given medicine to take at home. This will help the rest of the tissue come out of your body. ?? Call 911 Call 911 if you have any of these: ??? Severe pain and very heavy bleeding ??? Severe lightheadedness, passing out, or fainting ??? Fast heart rate ??? Trouble breathing ??? Confusion ??? Trouble waking up ?? When to get medical care Call your healthcare provider right away??if you have any of these: ??? Heavy bleeding that soaks 1pad an hour over 3 hours ??? Bleeding that doesn???t stop after 10 days ??? Fluid from your vagina that smells bad ??? Fever of 100.4??F (38??C) or higher ??? Pain in your lower belly (abdomen) that gets worse ??? Weakness or dizziness ?? Last Reviewed Date: 2021 ?? [id number] [employer]. All rights reserved. This information is not intended as a substitute for professional medical care. Always follow your healthcare professional's instructions. ?? Patient Care team information Care Team Related Persons Name: PT STATES NO ONE, NO ONE Name: JIM BECERRA Address: [place] [address]
--- OUTSIDE RECORDS SUMMARY | 2023-11-21 15:53 | XMS_ITS | Continuity of Care Document ---
Author Organization [facility] y Address [address] [address], [address] [place] [address]- Care Team Providers Care Reflector Driller And Deburrer Name Role Phone Marie FUEL OPERATOR, Dione Vela Primary Care Florina duffy [place] [facility] [place](s[place] 12/23/20 - 12/30/20 [facility] [address] [place] [address], [address] [place], [place] [address] Attending Physician: Kellie Ribeiro DO Referring Physician: Marie CASTANEDA, Dione Vela Allergies, Adverse Reactions, Alerts Substance Reaction Severity [...] recent to oldest [Reference Range]: 1 Height 165.10 cm (12/23/20 9:33 AM) Weight 127 kg (12/23/20 9:33 AM) Body Mass Index [18.5-24.99] 46.59 *>HHI* (12/23/20 9:33 AM)
--- OUTSIDE RECORDS SUMMARY | 2023-11-21 15:53 | XMS_ITS | Continuity of Care Document ---
Author Organization [facility] Address [address] [place] [address]- Care Team Providers Care Catering Attendant Name Role Phone Marie JACKET PREPARER, Dione Vela Primary Care Florina duffy [place] [facility] [place]18[place]23 - 08/17/23 [facility] [address] [place] [address] Allergies, Adverse Reactions, Alerts No Known Allergies Medications acetaminophen 325 mg oral capsule 2 capsule = 650 mg, By Mouth, Every 4 hours, PRN as needed for pain, # 120 capsule, 1 Refills, Maintenance, 07/07/23 0:22:00 EST, [facility], [id number], 165, cm, 07/06/23 21:39:00 EST, Height, 99, kg, 07/06/23 21:39:00 EST, Dry Weight Start Date: 07/07/23 Stop Date: 07/27/23 Status: Ordered ibuprofen 600 mg oral tablet 600 mg, 1, tablet, By Mouth, Every 6 hours, # 40 tablet, Refills 1, Tot. Refills 1, Maintenance, 07/07/23 0:20:00 EST, Route to [facility], [id number], 165, cm, 07/06/23 21:39:00EST, Height, 99, [...] 11/24/20 13:45:00 EDT, Route to Pharmacy Electronically, [facility]/pharmacy #[id number], Partial fill upon patient request if the prescription is for a schedule II opio... Start Date: 11/24/20 Status: Ordered Problem List Condition Confirmation Course Effective Dates Status Health St atus Informant Spontaneous Confirmed Active Patient Care team information Care Team Related Persons Name: PT STATES NO ONE, NO ONE Name: JIM BECERRA Address: [address] [address]
--- OUTSIDE RECORDS SUMMARY | 2023-11-21 15:53 | XMS_ITS | Continuity of Care Document ---
Author Organization [facility] y Address [address] [place] [address], [address] [place] [address]- Care Team Providers Care Bricklayer Helper Name Role Phone Marie CASTANEDA, Dione Vela Primary Care Florina duffy [place] [facility] [place]20/20 - 01/20/21 [facility] [address] [place] [address], [address] [place], [place] [address] Attending Physician: Kellie Ribeiro DO Referring Physician: Marie CASTANEDA, Dione Vela Allergies, Adverse Reactions, Alerts Substance Reaction Severity Status NKA Active Medications acetaminophen-oxyCODONE 325 mg-5 mg oral tablet 1, tablet, By Mouth, Every 6 hours, PRN, # 28 tablet, Refills 0, Tot. Refills 0, Maintenance, for pain, 11/24/20 13:46:00 EDT, Route to Pharmacy Electronically, [facility]/pharmacy #[id number] Tablet, Partial fill [...] 13:45:00 EDT, [id number], Partial fill upon patient request if the prescription is for a schedule II opio... Start Date: 11/24/20 Status: Ordered
--- OUTSIDE RECORDS SUMMARY | 2023-11-21 15:53 | XMS_ITS | Continuity of Care Document ---
Author Organization [facility] Address [address] [place] [address]- Care Team Providers Care Produce Department Manager Name Role Phone Marie REMOTE RECRUITER, Dione Vela Primary Care Jagviktoria duffy En[place] [facility] [place]s): 07/21/23 - 08/20/23 [facility] [address] [place] [id number] Attending Physician: Ximena Bundy Admitting Physician: AdmtrXimena Referring Physician: Admtr, Ar8 Allergies, Adverse Reactions, Alerts No Known Allergies Medications acetaminophen 325 mg oral capsule 2 capsule = 650 mg, By Mouth, Every 4 hours, PRN as needed for pain, # 120 capsule, 1 Refills, Maintenance, 07/07/23 0:22:00 EST, Capsule, [facility]/pharmacy #[id number], 165, cm, 07/06/23 21:39:00 EST, Height, 99, kg, 07/06/23 21:39:00 EST, Dry Weight Start Date: 07/07/23 Stop Date: 07/27/23 Status: Ordered ibuprofen 600 mg oral tablet 600 mg, 1, tablet, By Mouth, Every 6 hours, # 40 tablet, Refills 1, Tot. Refills 1, Maintenance, 07/07/23 0:20:00 EST, Route to Pharmacy Electronically, [facility]/pharmacy #[id number], 165, cm, 07/06/23 21:39:00EST, Height, 99, kg, 07/06/23 21:39:00 EST, Dry Weight Start Date: 07/07/23 Stop Date: 07/27/23 Status: Ordered Keflex monohydrate 500 mg oral capsule 1 capsule = 500 mg, By Mouth, Every 12 hours, # 6 capsule, 0 Refills, Maintenance, 11/24/20 13:46:00 EDT, Capsule, [facility]/pharmacy #[id number], Partial fill upon patient request if the prescription is for a schedule II opioid drug., 165.1, cm, 11/24/20 11:20:0... Start Date: 11/24/20 Status: Ordered tiZANidine 4 mg oral tablet 4 mg, 1, tablet, By Mouth, 3 times a day, # 90 tablet, Refills 0, Tot. Refills 0, Maintenance, 11/24/20 13:45:00 EDT, Route to Pharmacy Electronically, [facility]/pharmacy #[id number], Partial fill upon patient request if the prescription is for a schedule II opio... Start Date: 11/24/20 Status: Ordered Problem List Condition Confirmation Course Effective Dates Status Health St atus Informant Spontaneous Confirmed Active Patient Care team information Care Team Related Persons Name: PT STATES NO ONE, NO ONE Name: JIM BECERRA Address: home [address] [place] [address]
--- OUTSIDE RECORDS SUMMARY | 2023-11-21 15:53 | XMS_ITS | Continuity of Care Document ---
Author Organization [facility] ter Address [address] [place] [address]- Care Team Providers Care Airline Stewardess Name Role Phone Marie PHYSICIAN INTENSIVIST, Dione Vela Primary Care Florina duffy Encounter [facility] Date(s): 11/24/20 - 11/24/[address] [address]- Discharge Disposition: A-D/C Home Attending Physician: Kellie Ribeiro DO Admitting Physician: Kellie Ribeiro DO Referring Physician: Kellie Ribeiro DO Allergies, Adverse Reactions, Alerts Substance Reaction Severity Status NKA Active Medications acetaminophen-oxyCODONE 325 mg-5 mg oral tablet 1, tablet, By Mouth, Every 6 hours, PRN, # 28 tablet, Refills 0, Tot. Refills 0, Maintenance, for pain, 11/24/20 13:46:00 EDT, Route to Pharmacy Electronically, [facility]/pharmacy #[id number] Tablet, Partial fill upon patient request [...] 11/24/20 11:20:0... Start Date: 11/24/20 Status: Ordered oxyCODONE 5 mg oral tablet 5 mg, Tablet, By Mouth, Every 6 hours, PRN for Pain , Mild, Routine, 11/24/20 9:12:00 EDT Start Date: 11/24/20 Stop Date: 12/01/20 Status: Ordered tiZANidine 4 mg oral tablet 4 mg, 1, tablet, By Mouth, 3 times a day, # 90 tablet, Refills 0, Tot. Refills 0, Maintenance, 11/24/20 13:45:00 EDT, Route to Pharmacy Electronically, [facility]/pharmacy #[id number], Partial fill upon patient request if the prescription is for a schedule II opio... Start Date: 11/24/20 Status: Ordered Tylenol Tablet 975 mg, Tablet, By Mouth, 11/24/20 13:00:00 EDT Start Date: 11/24/20 Stop Date: 11/24/20 Status: Completed Results Radiology Reports * Exam Date Time Procedure Performing Provider Status 11/24/20 9:58 AM C-Arm > 1 Hour Gabbi Brown (Verified) Notes: (C-Arm > 1 Hour) Reason For Exam: radiculopathy microdiscectomy RESULT: C-Arm > 1 Hour Spine Single View, C-Arm > 1 Hour INDICATION: Reason: radiculopathy microdiscectomy COMPARISONS: None TECHNIQUE: Fluoroscopy support was provided. There was no radiologist in attendance. Fluoroscopy time: 19.8 seconds Exposure: 25.99 mGy FINDINGS: Fluoroscopy support was provided. There was no radiologist in attendance. IMPRESSION: See above. WSN: [id number] Ordering Physician: Kellie Ribeiro Dictated By: Yeyo Moss MD Dictated Date/Time: 11/24/20 10:07 a Reviewed By: Yeyo Moss MD Signed By: Yeyo Moss MD Signed Date/Time: 11/24/20 10:07 am Transcribed By: MIKE Transcribed Date/Time: 11/24/20 10:07 am * Exam Date Time Procedure Performing Provider Status 11/24/20 9:58 AM Spine Single View Gabbi Brown; [facility] (Verified) Notes: (Spine Single View) Reason For Exam: radiculopathy microdiscectomy RESULT: Spine Single View Spine Single View, C-Arm > 1 Hour INDICATION: Reason: radiculopathy microdiscectomy COMPARISONS: None TECHNIQUE: Fluoroscopy support was provided. There was no radiologist in attendance. Fluoroscopy time: 19.8 seconds Exposure: 25.99 mGy FINDINGS: Fluoroscopy support was provided. There was no radiologist in attendance. IMPRESSION: See above. WSN: [id number] Ordering Physician: Kellie Ribeiro Dictated By: Yeyo Moss MD Dictated Date/Time: 11/24/20 10:07 a Reviewed By: Yeyo Moss MD Signed By: Yeyo Moss MD Signed Date/Time: 11/24/20 10:07 am Transcribed By: MIKE Transcribed Date/Time: 11/24/20 10:07 am Vital Signs Most recent to oldest [Reference Range]: 1 2 3 Height 165.10 cm (11/24/20 11:20 AM) 165.10 cm (11/24/20 5:44 AM) 165.10 cm (11/06/20 9:31 AM) Weight 127.73 kg (11/24/20 5:44 AM) 127.73 kg (11/06/20 9:31 AM) 127.73 kg (10/23/20 5:10 PM) Oxygen Saturation [94-100 %] 96 % (11/24/20 11:20 AM) 94 % (11/24/20 10:00 AM) 100 % (11/24/20 9:45 AM) Pulse Rate [55-90 bpm] 62 bpm (11/24/20 11:20 AM) 73 bpm (11/24/20 5:44 AM) Body Mass Index [18.5-24.99] 46.86 *>HHI* (11/24/20 5:44 AM) 46.86 *>HHI* (11/06/20 9:31 AM) 46.86 *>HHI* (10/23/20 5:10 PM) Blood Pressure [90-138/55-84 mm Hg] 125/56mm Hg (11/24/20 11:20 AM) 135/67mm Hg (11/24/20 10:00 AM) 154/82mm Hg *H* (11/24/20 9:45 AM) Respiratory Rate [16-30 br/min] 18 br/min (11/24/20 1:14 PM) 20 br/min (11/24/20 12:12 PM) 17 br/min (11/24/20 11:20 AM) Temperature [96.8-100.4 DegF] 98.2 DegF (11/24/20 11:20 AM) 98.4 DegF (11/24/20 10:00 AM) 98.9 DegF (11/24/20 9:15 AM) Liters per Minute 6 L/min (11/24/20 9:15 AM) Mode of Delivery (Oxygen) Room air (11/24/20 11:20 AM) Room air (11/24/20 10:00 AM) Room air (11/24/20 9:30 AM) Blood pressure sites Arm, left (11/24/20 11:20 AM) Arm, left (11/24/20 10:00 AM) Arm, left (11/24/20 9:45 AM) Temperature Route Oral (11/24/20 11:20 AM) Temporal (11/24/20 10:00 AM) Temporal (11/24/20 9:15 AM) Dry Weight 129.2 kg (11/24/20 5:44 AM) 127.83 kg (11/06/20 9:31 AM) 127.73 kg (10/23/20 5:10 PM) Weight Obtained Via Patient/family stated (11/06/20 9:31 AM) Patient/family stated (10/23/20 5:10 PM) Dry Weight Obtained Via Patient/family stated (11/06/20 9:31 AM) Patient/family stated (10/23/20 5:10 PM)
--- OUTSIDE RECORDS SUMMARY | 2023-11-21 15:53 | XMS_ITS | Continuity of Care Document ---
Author Organization [facility] ter Address [address] [place] [address]- Care Team Providers Care [facility] Owner Name Role Phone Marie DEVELOPING MACHINE OPERATOR, Dione Vela Primary Care Florina duffy [place] [facility](s[place] 07/10/23 - 07/10/[address] [address]- Discharge Disposition: A-D/C Home Attending Physician: Bernice Matson DO Admitting Physician: Bernice Matson DO Referring Physician: Bernice Matson DO Allergies, Adverse Reactions, Alerts No Known Allergies Medications acetaminophen 325 mg oral capsule 2 capsule = 650 mg, By Mouth, Every 4 hours, PRN as needed for pain, # 120 capsule, 1 Refills, Maintenance, 07/07/23 0:22:00 EST, Capsule, [facility]/pharmacy #[id number], 165, cm, 07/06/23 21:39:00 EST, Height, 99, kg, 07/06/23 21:39:00 EST, Dry Weight Start Date: 07/07/23 Stop Date: 07/27/23 Status: Ordered ibuprofen 600 mg oral tablet 600 mg, 1, tablet, By Mouth, Every 6 hours, # 40 tablet, Refills 1, Tot. Refills 1, Maintenance, 07/07/23 0:20:00 EST, Route to Pharmacy Electronically, [facility]/pharmacy #[id number], 165, cm, 07/06/23 21:39:00EST, Height, 99, kg, 07/06/23 21:39:00 EST, Dry Weight Start Date: 07/07/23 Stop Date: 07/27/23 Status: Ordered ibuprofen 800 mg oral tablet 800 mg, 1, tablet, By Mouth, Every 8 hours, PRN, for 7 days, # 30 tablet, Refills 0, Tot. Refills 0, Acute 07/17/23 20:01:00 EST, Pain , Moderate, 07/10/23 20:01:00 EST, Route to Pharmacy Electronically, [facility]/pharmacy #[id number], Partial fill upon patient r... Start Date: 07/10/23 Stop Date: 07/17/23 Status: Ordered Keflex monohydrate 500 mg oral capsule 1 capsule = 500 mg, By Mouth, Every 12 hours, # 6 capsule, 0 Refills, Maintenance, 11/24/20 13:46:00 EDT, Capsule, [facility]/pharmacy #[id number], Partial fill upon patient request if the prescription is for a schedule II opioid drug., 165.1, cm, 11/24/20 11:20:0... Start Date: 11/24/20 Status: Ordered tiZANidine 4 mg oral tablet 4 mg, 1, tablet, By Mouth, 3 times a day, # 90 tablet, Refills 0, Tot. Refills 0, Maintenance, 11/24/20 13:45:00 EDT, Route to Pharmacy Electronically, [facility]/pharmacy #[id number], Partial fill upon patient request if the prescription is for a schedule II opio... Start Date: 11/24/20 Status: Ordered Problem List Condition Confirmation Course Effective Dates Status Health St atus Informant Spontaneous Confirmed Active Vital Signs Most recent to oldest [Reference Range]: 1 Height 165 cm (07/10/23 5:36 PM) Oxygen Saturation [94-100 %] 100 % (07/10/23 4:42 PM) Pulse Rate [55-90 bpm] 66 bpm (07/10/23 4:42 PM) Blood Pressure [90-138/55-84 mm Hg] 108/ 37mm Hg (07/10/23 4:42 PM) Respiratory Rate [16-30 br/min] 18 br/mi n (07/10/23 4:42 PM) Temperature [96.8-100.4 DegF] 98.8 DegF (07/10/23 4:42 PM) Blood pressure sites Arm, right (07/10/23 4:42 PM) Temperature Route Oral (07/10/23 4:42 PM) Dry Weight 122.1 kg (07/10/23 4:42 PM) Dry Weight Obtained Via Standing scale (07/10/23 4:42 PM) Note * Kristine Gloria RN: PERFORM Event Display: Discharge/Transfer Note Hospital Authored Date: Nursing Discharge Note Entered On: 07/10/2023 20:16 EST Performed On: 07/10/2023 20:16 EST by Kristine Gloria RN Nursing Discharge Note 2 Discharge Time : 07/10/2023 20:11 EST Discharge Level of Care at Discharge : Home/Penitentiary/Foster Care Patient Left Unit Via : Ambulatory Patient Accompanied Off Unit with : Significant other DC Instructions Provided & Signed by Pt : Yes Patient Understands D/C Instructions : Yes Patient Instructions Discharge Signed : Yes Did Pt have Specialty Bed or Wound Vac : No Kristine Gloria RN - 07/10/2023 20:16 EST * Kristine Gloria RN: PERFORM Event Display: Patient Education/Instruction Authored Date: Inpatient Adult Discharge Instructions. [address] [id number] Name: KYMBERLY CASTANEDA : 1990?? Visit: 07/10/2023 16:04?? Current Date: 07/10/2023 20:00 ?? Account: [id number]?? Inpatient Adult Discharge Instructions We would like [...] and their families. Surveys are administered by [employer] ?? If further treatment with your primary care physician or another doctor is recommended, it is important for you to keep the appointment. Call your primary care physician or return to the Emergency Department immediately if your condition worsens, fails to improve, or new symptoms develop. If you need to find a doctor, you can call [facility] [employer] [facility] for a referral at [phone] or toll free at [phone] ([phone]) or log in to [email or web address].. ?? [facility], in keeping with [facility] guidance, no longer requires face masks [...] a health care danial of your choosing. [employer] is a website that allows you to securely view your medical information including your hospital discharge summary, office visit summaries, medications and follow-up visits. You can also request appointments, renew medications, and request access to your medical information using a health care danial of your choosing, or just ask a question. You can enroll at [email or web address] or register during your next office visit. You have been discharged from [facility], Patient Care Unit: [id number]??. If you have any questions regarding these instructions, including results of studies pending, afteryou leave, please call us and we will be happy to assist you 05/12. [facility] Your Care Team Attending Physician Bernice Matson DO?? Consulting Providers Bernice Matson DO?? Tests Performed Below is a partial list of the tests performed during your hospitalization. You may have had other tests and procedures not included in this list. Please discuss all test results with your provider. CBC HCG Plus Beta (Females and Males) No tests performed during this visit.?? Primary Care Provider Marie CASTANEDA, Dione Vela? Discharge Vitals Temperature: 98.8 DegF Height: 165 cm Pulse Rate: 66 bpm ?? Respiratory Rate: 18 br/min ?? Systolic Blood Pressure: 108 mm Hg ?? Diastolic Blood Pressure:??37 mm Hg??Low ?? Oxygen Saturation: 100 % ?? Studies Pending All studies ordered during this hospital stay have been completed unless listed below. Please discuss all pending results with your provider listed above in these instructions. ?? No incomplete studies found?? What to do next Instructions From Your Doctor ?? Orders?? You Need to Schedule the Following Appointments Follow Up with??[facility] VICE PRESIDENT OF NEWS Group [phone] Discharge Medications KYMBERLY AUGUSTIN :1990 Visit Date:07/10/2023 Medications: Please continue your medications until treatment is completed or stopped by your provider. Medications not listed below should be discontinued. Discuss any questions related to medications with your provider. What How Much When Instructions Next Dose Unchanged Acetaminophen (acetaminophen 325 mg oral capsule) 2 capsule Oral Every 4 hours as needed for as needed for pain Duration: 10 Days Unchanged Cephalexin (Keflex monohydrate 500 mg oral capsule) 1 capsule Oral Every 12 hours Unchanged Ibuprofen (ibuprofen 600 mg oral tablet) 1 tab(s) Oral Every 6 hours Duration: 10 Days Unchanged Tizanidine (tiZANidine 4 mg oral tablet) [...] Please discuss all test resultswith your provider. CBC (07/10/2023) ???WBC - 10.3 k/mm3???RBC - 4.50 m/mm3???Hgb - 12.0 Gm/dL???Hct - 38.2 %???MCV - 84.9 femtoliters???MCH - 26.7 pg???MCHC - 31.4 g/dL???Platelet Count - 260 k/mm3???RDW-SD - 43.0 femtoliters???MPV - 13.3 femtoliters???Nucleated RBC (Automated) - 0.0 #/100 WBC'S???Abs. NRBC - 0.0 k/mm3 HCG Plus Beta (Females and Males) (07/10/2023) ? ?BHCG (HCG & Beta) - 296 mIU/mL Allergies (NKA means No Known Allergies) NKA Problems Active Problems??(2) ?? Spontaneous ?? Education Materials Below is the list of Educational Leaflet Providered with your Discharge Instructions. [employer] Patient Education - Understanding Miscarriage: Trying Again?? [employer] Patient Education - Understanding Miscarriage: Recovery?? [employer] Patient Education - Understanding Miscarriage: Emotions?? Valuables and Belongings I fully understand and agree that [facility] accepts no responsibility for all my personal [...] are strongly encouraged to quit. Please call [facility] [employer] at [phone] or [phone] ([phone]) or log in to [email or web address] for referrals to smoking cessation programs. ?? 988 Suicide & Crisis Lifeline is available 05/12 if you or someone you know needs to find a reason to keep living. By calling 398 you'll be connected to a skilled, trained counselor at a crisis center in your area. INPATIENT DISCHARGE INSTRUCTIONS SIGNATURE PAGE KYMBERLY AUGUSTIN Location:[facility] Registration Date and Time:07/10/2023 16:04 EST Primary Care Physician: Dione Salazar NP, Attending Physician: Bernice Matson DO, I KYMBERLY AUGUSTIN, have received the above patient education materials/instructions and have verbalized understanding. If ambulance or transport services are being used I further acknowledge being given a choice of service. ?? If you need to contact me, please call me at this number: . Patient/Special Weapons And Tactics Officer Name: Patient/Special Weapons And Tactics Officer Signature: Relationship to Patient: Witness Name/Signature: Date: * Kristine Gloria RN: PERFORM Event Display: Patient Education Leaflets Authored Date: [id number] Understanding Miscarriage: Trying Again ?? 460[address] Understanding Miscarriage: Trying Again You???ve been , so you know that chances are very good it can happen again if you want it to. The choice is up to you. If you want to try again, do so when you???re ready. When to try again You may decide to try again soon. Or you may prefer to wait. To increase the chances of a healthy , your healthcare provider may suggest waiting??2 to 3??monthly period cycles. This builds up the uterine lining. As a result, the fertilized egg is more likely to implant correctly. ?? Having tests If you have repeat miscarriages, you may need a few tests. In some cases, tests can find the cause of miscarriage. Some causes, such as problems with the uterus, can often be fixed. If you have a general health problem, finding ways to control it may be all you need. ?? Healthy habits After a first miscarriage, most people go on to have a healthy . You can give a future baby the best start by eating a healthy diet. To help prevent problems during your next , stayaway from things that may place the baby at risk. While you're : ??? Don't smoke. ??? Don'tdrink alcohol. ??? Don't use drugs. ??? Don't go in hot tubs or saunas. ?? When you're ready Your health is what matters. Wait until you feel fit in your body and mind before trying to get again. Until then, enjoy your time with loved ones. Try not to let getting become your main goal. ?? Last Reviewed Date: 2021 ?? [id number] [employer]. All rights reserved. This information is not intended as a substitute for professional medical care. Always follow your healthcare professional's instructions. ?? * Kristine Gloria RN: PERFORM Event Display: Patient Education Leaflets Authored Date: [id number] Understanding Miscarriage: Recovery ?? 00466 Understanding Miscarriage: Recovery Your body has had [...] your daily routines You are the best manager placement of how you feel. Do only as [...] you,try contacting the following: ??? Share: and Loss Support at www.[email or web address].org??? Resolve Through Sharing [...] upset. ?? Last Reviewed Date: 2022 ?? 4806-9247 [employer]. All rights reserved. This information is not intended as a substitute for professional medical care. Always follow your healthcare professional's instructions. ?? * Kristine Gloria RN: PERFORM Event Display: Patient Education Leaflets Authored Date: [id number] Understanding Miscarriage: Emotions ?? 38733 Understanding Miscarriage: Emotions Miscarriage is the unplanned [...] them. ?? Last Reviewed Date: 2021 ?? [id number] [employer]. All rights reserved. This information is not intended as a substitute for professional medical care. Always follow your healthcare professional's instructions. ?? Patient Care team information Care Team Related Persons Name: PT STATES NO ONE, NO ONE Name: JIM BECERRA Address: [address] [address]
--- OUTSIDE RECORDS SUMMARY | 2023-11-21 15:53 | XMS_ITS | Continuity of Care Document ---
Author Organization [facility] Address [address] [place] [address]- Care Team Providers Care Superintendent Stevedoring Name Role Phone Marie TAX CLERK, Dione Vela Primary Care Florina clive Encounter [facility] Date(s): 07/18/23 - 08/20/23 [facility] [address] [place] [address] Attending Physician: Not on Staff, Attending MD Referring Physician: Edda Donaldson DO Allergies, Adverse Reactions, Alerts No Known Allergies Medications acetaminophen 325 mg oral capsule 2 capsule = 650 mg, By Mouth, Every 4 hours, PRN as needed for pain, # 120 capsule, 1 Refills, Maintenance, 07/07/23 0:22:00 EST, Capsule, [facility]/pharmacy #[id number], 165, cm, 07/06/23 21:39:00 EST, Height, [...] 11/24/20 13:45:00 EDT, Route to Pharmacy Electronically, [facility]/pharmacy #[id number], Partial fill upon patient request if the prescription is for a schedule II opio... Start Date: 11/24/20 Status: Ordered Problem List Condition Confirmation Course Effective Dates Status Health St atus Informant Spontaneous Confirmed Active Patient Care team information Care Team Related Persons Name: PT STATES NO ONE, NO ONE Name: JIM BECERRA Address: [address] [address]
[2023-11-21 17:17] VITALS: BP 134/68; PULSE 60; RESP 18; TEMP 36.7; O2SAT 98
== END 2023-11-21 17:19 | disposition home or self-care (01) ==
PROVIDERS: Emergency Provider Emergency Medicine; PCP Registered Nurse
DX: S60.211A Contusion of right wrist, initial encounter (principal); W50.0XXA Accidental hit or strike by another person, initial encounter; Y93.9 Activity, unspecified; Y92.9 Unspecified place or not applicable; Y99.9 Unspecified external cause status; M25.531 Pain in right wrist
CPT/HCPCS: 73110; 73130; 99283

== ENCOUNTER 2024-04-18 15:58 | Outpatient (REF) | payer MEDICAID, SELFPAY ==
[2024-04-18 18:28] LABS: HCG Quantitative < 2 mIU/mL; TSH reflex Free T4 1.56 uIU/mL (0.32-4.0)
[2024-04-19 06:42] LABS: CT PCR NOT DETECTED (Not Detect.); NG PCR NOT DETECTED (Not Detect.)
[2024-04-19 08:31] LABS: Bacterial Vaginosis PCR POSITIVE (Negative); Candida Group PCR NOT DETECTED (Not Detect); Candida glab krusei PCR NOT DETECTED (Not Detect); Trichomonas vaginalis PCR NOT DETECTED (Not Detect)
== END 2024-04-18 15:59 | disposition home or self-care (01) ==
LOC: HO.HHCL 15:58
PROVIDERS: Visit Provider Internal Medicine
DX: R10.2 Pelvic and perineal pain (principal); N91.2 Amenorrhea, unspecified
CPT/HCPCS: 0352U; 36415; 84443; 84702; 87491; 87591

== ENCOUNTER 2024-07-12 11:30 | Outpatient (REF) | payer MEDICAID, SELFPAY ==
--- OUTSIDE RECORDS SUMMARY | 2024-07-12 13:45 | XMS_ITS | Encounter Summary ---
Author Organization [facility] Address [address] [place] [address] [address] [place] [address] Care Team Providers Care Clinical Training Coordinator Name Role Phone CurtMelissa clarke THANG Primary Care Provider [phone] Reason for Visit * Reason Onset Date Comments Appointment 02/06/2023 Encounter Details Date Type Department Care Team (Late st Contact Info) Description 02/06/2023 Telephone [facility] ADULT DENTAL [address] [place] [address] Jose, Jeanne [address] [place] [address] Appointment Social History Tobacco Use Types Packs/Day Years Used Date Smoking Tobacco: Never Smokeless Tobacco: Never Depression Answer Date Recorded Patient Health Questionnaire-9 Score 0 05/03/2022 Depression Answer Date Recorded Patient Health Questionnaire-2 Score 0 05/03/2022 Comments Unknown Sex and Gender Information Value Date Recorded Sex Assigned at Female 03/14/2022 10:32 AM EDT Legal Sex Female 10:32 AM EDT Gender Identity Female 03/14/2022 10:32 AM EDT Sexual Orientation Straight 03/14/2022 10 :32 AM EDT documented as of this encounter Miscellaneous Notes * Telephone Encounter - Tammy Mondragon - 02/06/2023 3:40 PM EDT Patient on waiting list since 08/2022. Checking in on status of appt DR documented in this encounter Plan of Treatment Upcoming Encounters Date Type Department Care Team (Late st Contact Info) Description 08/15/2024 1:00 PM EDT Office Visit [facility] ADULT DENTAL [address] [place] [address] Chato Garciaaris [address] [place] [address] 08/16/2024 3:30 PM EDT Office Visit [facility] CHC MED & PEDS [address] [place] [address] Melissa Diaz FNP [address] [place] [address] documented as of this encounter Visit Diagnoses Not on filedocumented in this encounter Additional Health Concerns Assessment Noted Time PHQ-9 Depression Total Score: 0 05/03/20 3:54 PM EST documented as of this encounter Care Teams Clinical Training Coordinator Relationship Specialty Start Date End Date Melissa Diaz FNP [address] [place] [address] PCP - General Family Medicine 03/04/21 documented as of this encounter
--- OUTSIDE RECORDS SUMMARY | 2024-07-12 13:45 | XMS_ITS | Encounter Summary ---
Author Organization [facility] Address [address] [place] [address] Care Team Providers Care Furnace Reliner Name Role Phone Melissa Diaz Primary Care Provider [phone] Encounter Details Date Type Department Care Team (Late st Contact Info) Description 04/29/2022 Orders Only [facility] MEDICINE [address] [place] [address] Rebecca Camacho, JERRY Social History Tobacco Use Types Packs/Day Years Used Date Smoking Tobacco: Never Assessed Depression Answer Date Recorded Patient Health Questionnaire-9 Score 0 05/03/2022 Depression Answer Date Recorded Patient Health Questionnaire-2 Score 0 05/03/2022 Comments Unknown Sex and Gender Information Value Date Recorded Sex Assigned at Female 03/14/2022 10:32 AM EDT Legal Sex Female 10:32 AM EDT Gender Identity Female 03/14/2022 10:32 AM EDT Sexual Orientation Straight 03/14/2022 10 :32 AM EDT documented as of this encounter Plan of Treatment Upcoming Encounters Date Type Department Care Team (Late st Contact Info) Description 08/15/2024 1:00 PM EDT Office Visit [facility] ADULT DENTAL [address] [place] [address] Jeanne Garcia [address] [place] [address] 08/16/2024 3:30 PM EDT Office Visit [facility] CHC MED & PEDS [address] [place], [place] [phone] Melissa Diaz FNP [address] [place], [place] [phone] documented as of this encounter Visit Diagnoses Not on filedocumented in this encounter Care Teams Furnace Reliner Relationship Specialty Start Date End Date Melissa Diaz FNP [address] [place] [address] PCP - General Family Medicine 03/04/21 documented as of this encounter
--- OUTSIDE RECORDS SUMMARY | 2024-07-12 13:45 | XMS_ITS | Clinical Summary ---
Author Organization [facility] Address [address] [place] [address] Phone Care Team Providers Care Mri Manager Name Role Phone Jonn Campos MD Primary Care Provider [phone] Allergies No known active allergies Medications PNV no.95/ferrous fum/folic ac ( ORAL) Take 3 Tablets by mouth daily. 06/14/2023 Active cholecalciferol (VITAMIN D-3) 50 mcg (2,000 unit) tablet Take 1 tablet (2,000 Units total) by mouth 1 (one) time each day. 01/24/2018 Active Active Problems Problem Noted Date Diagnosed Date Morbidly obese 04/19/2024 Immunizations Name Administration Dates Next Due Influenza Quadravalent, MDCK , 0.5ml, preservative free (Flucelvax) 6mo and older 02/01/2017 Tdap Tetanus diptheria acell ular pertussis (Boostrix; Adacel) 7yo and older 03/29/2017 Surgical History Surgery Date Site/Laterality Comments CHOLECYSTECTOMY PROCEDURE: HISTORICAL CHOLECYSTECTOMY OTHER SURGICAL HISTORY 01/18/2023 PROCEDURE: HISTORY OTHER; COMMENT: Operative hysteroscopy with polypectomy and d and c for Menorrhagia and polyp Medical History Medical History Date Comments Thyroid disease in 06/2004 DX: Thyroid disease in Heartburn 02/01/2017 DX:Heartburn; CO MMENT: Pepcid 20 mg daily No fatty or fried food Morbidly obese (CMS/HCC) DX:Morb idly obese (HCC) Family History Medical History Relation Name Comments Asthma Brother 1 Hypertension Brother 2 No Known Problems Father Uterine cancer Mother Thyroid disease Sister 1 Breast cancer Neg Hx Colon cancer Neg Hx Ovarian cancer Neg Hx Relation Name Status Comments Brother 1 Alive Brother 2 Alive Brother 3 Alive Father Alive Mother Alive Sister 1 Alive Sister 2 Alive Social History Tobacco Use Types Packs/Day Years Used Date Smoking Tobacco: Never Smokeless Tobacco: Never Alcohol Use Standard Drinks/Week Comments No 0 (1 standard drink = 0.6 oz pur e alcohol) Comments Unknown Sex and Gender Information Value Date Recorded Sex Assigned at Not on file Legal Sex Female 8:25 AM EST Gender Identity Not on file Sexual Orientation Not on file Obstetrics History Last Filed Vital Signs Vital Sign Reading Time Taken Comments Blood Pressure 114/80 02/07/2023 2:20 PM EDT Pulse 74 02/07/2023 2:20 PM EDT Temperature - - Respiratory Rate - - Oxygen Saturation - - Inhaled Oxygen Concentration - - Weight 129 kg (284 lb) 02/07/2023 2:20 PM EDT Height 165.1 cm (5' 5 ) 02/07/2023 2:20 PM EDT Body Mass Index 47.26 02/07/2023 2:20 PM EDT Plan of Treatment Health Maintenance Due Date Last Done Comments Hepatitis B Vaccines (1 of 3 - 19+ 3-dose series) 2008 Cholesterol Screening (Lipid Panel) 04/17/2022 Depression Screening 04/17/2022 Social Influencers of Health Screening 04/17/2022 COVID-19 Vaccine (1 - 2023-2 5 season) 2024 Influenza Vaccine (#1) 2024 02/01/2017 DTaP,Tdap,and Td Vaccines (2 - Td or Tdap) 03/29/2027 03/29/2017 Cervical Cancer Screening: HPV 01/25/2028 01/24/2023 HIV Screening Completed 01/03/2018 Hepatitis C Screening Completed 01/03/2018 HIB Vaccines Aged Out No longer eligi ble based on patient's age to complete this topic HPV Vaccines Aged Out No longer eligi ble based on patient's age to complete this topic Hepatitis A Vaccines Aged Out No long er eligible based on patient's age to complete this topic IPV Vaccines Aged Out No longer eligi ble based on patient's age to complete this topic MMR Vaccines Aged Out No longer eligi ble based on patient's age to complete this topic Meningococcal ACWY Vaccine Aged Out N o longer eligible based on patient's age to complete this topic Meningococcal B Vacine Aged Out No lo nger eligible based on patient's age to complete this topic Pneumococcal Vaccine: Pediat rics (0 to 5 Years) and At-Risk Patients (6 to 64 Years) Aged Out No longer eligi ble based on patient's age to complete this topic RSV Immunization Patients Un nery 20 months Aged Out No longer eligible b ased on patient's age to complete this topic Varicella Vaccines Aged Out No longer eligible based on patient's age to complete this topic Procedures Procedure Name Priority Date/Time Associated Diagnosis Comments HPV Routine 01/24/2023 HEPATITIS C SCREENING Routine 01/03/2018 HIV SCREENING Routine 01/03/2018 from Last 3 Months or Most Recently Relevant to Health Maintenance Results * Cervical Cancer Screening: HPV (01/24/2023) Pathologist [facility] Cervical Cancer Screening: HPV abstracted, negative [facility] Provider HEALTH MAINTENANCE Final Result * HIV Screening (01/03/2018) [facility] HIV Screening abstracted [facility] Provider HEALTH MAINTENANCE Final Result * Hepatitis C Screening (01/03/2018) Pathologist [facility] Hepatitis C Screening abstracted [facility] Provider HEALTH MAINTENANCE Final Result from Last 3 Months or Most Recently Relevant to Health Maintenance Insurance MEDICAID - [place] Care Teams Mri Manager Relationship Specialty Start Date End Date Jonn Campos MD [address] [place] [address] Dr Nery [place] PCP - General Internal Medicine 01/18/19
--- OUTSIDE RECORDS SUMMARY | 2024-07-12 13:45 | XMS_ITS | Encounter Summary ---
Author Organization [employer] Address [address] [place] [address] Care Team Providers Care Portrait Painter Name Role Phone Melissa Diaz THANG Primary Care Provider [phone] Encounter Details Date Type Department Care Team (Latest Contact Info) Description 07/12/2024 Travel Social History Tobacco Use Types Packs/Day Years Used Date Smoking Tobacco: Never Smokeless Tobacco: Never Alcohol Answer Date Recorded Frequency of Alcohol Consumption Not on file 10/02/2023 Average Number of Drinks Not on file 024 Frequency of Binge Drinking Not on file 09/13 Score 0 10/02/2023 Depression Answer Date Recorded Patient Health Questionnaire-9 Score 3 10/02/2023 Patient Health Questionnaire-9 Score 3 10/02/2023 Last PHQ-9: Questionnaire Data Not on file 0 10/02/2023 Housing Stability Answer Date Recorded What is your housing situation today? I have donnaaldair angel 09/25/[address] you li ve. Do you have problems with any of the following? None of the above 09/25/2023 Food Insecurity Answer Date Recorded Within the past 12 months, y ou worried that your food would run out before you got money to buy more: Never True 09/25/2023 Within the past 12 months,th e food you bought just didn't last and you didn't have enough money to get more: Never True Transportation Answer Date Recorded In the past 12 months, has l ack of transportation kept you from medical appts, meetings, work or from getting things needed for daily living? No 09/25/2023 Utilities Answer Date Recorded In the past 12 months, has t he electric, gas, oil or water company threatened to shut off services in your home? No 09/25/2023 Depression Answer Date Recorded Patient Health Questionnaire-2 Score 2 10/02/2023 Internet Access Answer Date Recorded Internet Access Q1 No 07/12/2024 Internet Access Q2 I do not want or need it 06/16 Comments No Sex and Gender Information Value Date Recorded [...] 1:00 PM EDT Office Visit [facility] [address] [place] [address] Jose Jeanne [address] [place] [address] 08/16/2024 3:30 PM EDT Office Visit [facility] [address] [place] [address] Melissa Diaz FNP [address] [place] [address] documented as of this encounter Visit Diagnoses Not on filedocumented in this encounter Additional Health Concerns Assessment Noted Time PHQ-9 Depression Total Score: 3 10/02/19 24 1:29 PM EDT documented as of this encounter Care Teams Portrait Painter Relationship Specialty Start Date End Date Melissa Diaz FNP [address] [place] [address] PCP - General Family Medicine 03/04/21 documented as of this encounter
--- OUTSIDE RECORDS SUMMARY | 2024-07-12 13:45 | XMS_ITS | Clinical Summary ---
Author Organization [employer] Address [address] [place] [address] [address] [place] [address] Care Team Providers Care Political Organizer Name Role Phone Curttricia Melissa THANG Primary Care Provider [phone] Allergies No known active allergies Medications Blood Pressure kitIndications:Alma Delia vated blood pressure reading Use to check blood pressure 3-4 times per week 1 kit 4 Active albuterol 108 (90 Base) MCG/ACT inhalerIndications :Mild intermittent asthma without complication Inhale 2 puffs every 6 (six) hours if needed for wheezing or shortness of breath. 18 g 3 4 10/02/19 25 Active cholecalciferol (Vitamin D-3) 25 MCG (1000 UT) tabletIndications: Vitamin D insufficiency Take 1 tablet (25 mcg) by mouth Once per day. 90 tablet 1 4 Active Active Problems Problem Noted Date Diagnosed Date Amenorrhea 04/18/2024 Assessment & Plan (04/18/2024 4:00 PM EST): ?Anovulatory cycle? PCOS? Patient's A1c is on PreDM levels, she had gestational DM so some of the metabolic changes can be reponsisble for amenorrhea, will RO Order serum hcg and vaginal swab, will call back prn abn results. Pelvic pain 04/18/2024 Assessment & Plan (04/18/2024 3:58 PM EST): Unclear if she has ovarian cyst (?anovulatory cycle? Endometrial lesions or vaginitis? Order labs and pelvic US and fu with PCP IFG (impaired fasting glucose) 04/18/2024 Assessment & Plan (04/18/2024 4:00 PM EST): A1c is 5.9, patient had gestational DM. I have discussed with patient regarding increasing physicial activity and decrease calorie intake, advised weight redcution FU with PCP Mild intermittent asthma without complication Overview (10/03/2023): -Cont albuterol PRN Seasonal allergies 10/02/2023 Ganglion cyst of dorsum of right wrist Assessment & Plan (10/03/2023 9:52 AM EDT): Surgery completed 2022 by [facility] - Dr. aPz Normal oral exam 10/02/2023 Overview (10/03/2023): Pap: NILM, HPV neg on 08/25/21 Last PE: 10/02/23 Dental: UTD Endometrial polyp 10/02/2023 Overview (10/02/2023): Noted on US May 2022 - 4mm endometrial polyp Followed by Corry BENAVIDEZ H/O lumbar discectomy 05/03/2022 Overview (10/02/2023): L4/5 discectomy for left lumbar radiculopathy on 11/24/20 ([facility]) Assessment & Plan (10/03/2023 9:51 AM EDT): Continues with chronic low back pain, will check XR Plan for referral to [facility] Pain Management pending results Headache 09/22/2021 Assessment & Plan (10/03/2023 9:51 AM EDT): Continues with APAP and ibuprofen PRN Loss of hair 09/22/2021 Assessment & Plan (10/03/2023 9:51 AM EDT): Previous tx with topical Mindoxidil Check TSH and Vit D Referral to re-establish with Derm team Encounters Date Type Department Care Team Description 07/12/2024 10:15 AM EST Office Visit [facility] MED & PEDS [address] [place] [address] Melissa Diaz FNP Healthcare maintenance (Primary Dx); Encounter for immunization; Benign paroxysmal positional vertigo due to bilateral vestibular disorder; Blurred vision, bilateral; Ganglion cyst of dorsum of right wrist 07/12/2024 Travel 07/11/2024 Telephone [facility] MEDICINE [address] [place] [phone] Melissa Diaz FNP Nurse Triage 05/30/2024 11:20 AM EST Office Visit [facility] WALK-IN CENTER [address] [place] [phone] Gigi Grant MD Benign paroxysmal positional vertigo due to bilateral vestibular disorder (Primary Dx); IFG (impaired fasting glucose); Dizziness 05/30/2024 Telephone [facility] WALK-IN CENTER [address] [place] [phone] Tashia Kitchen RN [facility] 07/08; [facility] Back sugery 11/24/20 05/09/2024 Telephone [facility] [address] [place] [address] Aroldo Reyes MA Chart Prep 04/19/2024 Orders Only [address] [phone] Olive Jaeger MD 04/18/2024 3:20 PM EST Office Visit [facility] WALK-IN [address] [address] Olive Jaeger MD Amenorrhea (Primary Dx); Pelvic pain; IFG (impaired fasting glucose) 04/18/[address] [phone] Melissa Diaz FNP Nurse Triage from Last 3 Months Immunizations Name Administration Dates Next Due Hep B, adult 03/17/2021,11/05/2019,06/07/2019 Influenza injectable quadriv alent preservative free 03/17/2021,05/17/2019 Pneumococcal Conjugate PCV 20 07/12/2024 Tdap 05/17/2019,03/29/2017 Family History Medical History Relation Name Comments Hypertension Brother Uterine cancer Mother thyroid disorder Mother thyroid disorder Sister Relation Name Status Comments Brother Mother Sister Social History Tobacco Use Types Packs/Day Years Used Date Smoking Tobacco: Never Smokeless Tobacco: Never Tobacco Cessation:Counseling Given: Not Answered Alcohol Answer Date Recorded Frequency of Alcohol [...] is your housing situation today? I have donna angel 09/25/[address] you [...] Orientation Straight 03/14/2022 10 :32 AM EDT Last Filed Vital Signs Vital Sign Reading Time Taken Comments Blood Pressure 138/88 07/12/2024 10:39 AM EST manually checked Pulse 71 07/12/2024 10:39 AM EST Temperature 36.1 ??C (97 ??F) 07/12/2024 10: 39 AM EST Respiratory Rate 18 07/12/2024 10:3 9 AM EST Oxygen Saturation 99% 07/12/2024 10: 39 AM EST Inhaled Oxygen Concentration - - Weight 132 kg (290 lb) 07/12/2024 10:39 AM EST Height 165.1 cm (5' 5 ) 07/12/2024 10:3 9 AM EST Body Mass Index 48.26 07/12/2024 10:39 AM EST Plan of Treatment Upcoming Encounters Date Type Department Care Team (Late st Contact Info) Description 08/15/2024 1:00 PM EDT Office Visit [facility] ADULT DENTAL [address] [place] [address] Jose, Jeanne [address] [place] [address] 08/16/2024 3:30 PM EDT Office Visit [facility] CHC MED & PEDS [address] [place] [address] CurtenMelissa, FACULTY MEMBER [address] [place] [address] Health Maintenance Due Date Last Done Comments Family Planning (PISQ) 2004 Dental X-Ray: Full Mouth 02/05/2024 02/03/2021, 07/0 01/2018 Dental Oral Exam 04/19/2024 10/18/2023, , 11/20/2017, Additional history exists Dental Prophylaxis 04/19/2024 10/18/2023, 0 02/03/2021, 11/20/2017, Additional history exists Pap Smear 08/27/2024 08/27/2021 Alcohol/Substance Use Screening 10/01/2024 10/02/2023 Depression Screening 10/01/2024 10/02/2023, 10/02/19 Dental X-Ray: Bitewings 10/18/2024 10/18/19 24, 02/03/2021, 11/20/2017 Influenza Vaccine (#1) 2024 , 05/17/2019, 02/01/2017 Postponed from 01/14/2024 (Patient Refused) Diabetes: Hemoglobin A1C 04/18/2025 024, 10/19/2023, 04/12/2021, Additional history exists COVID-19 Vaccine ( season) 2025 07/23/2021, 09/30/2020, 09/02/2020 Postponed from 01/14/2024 (Patient Refused) SDOH Screening 07/12/2025 07/12/2024 Tobacco Screening 07/12/2025 07/12/2024 Cervical Cancer Screening 08/27/2026 HPV/Cotest 08/27/2026 08/27/2021 Lipid Panel 10/18/2028 10/19/2023, 04/12/2021 DTaP/Tdap/Td Vaccines (3 - Td or Tdap) 05/17/2029 05/17/2019, 03/29/2017 Zoster Vaccines (1 of 2) 2039 RSV Patients and Patients Aged 60 years or older (1 - 1-dose 75+ series) 2064 Hepatitis B Vaccines Completed 03/17/2021, 11/05/2019, 06/07/2019 HIV Screening Completed 10/19/2023, 07/0 12/2020, 05/29/2019 Hepatitis C Screening Completed 10/19/2023, 020 Pneumococcal Vaccine: Pediatrics (0 to 5 Years) and At-Risk Patients (6 to 49) Years) Completed 07/12/2024 HIB Vaccines Aged Out No longer eligi [...] patient's age to complete this topic Meningococcal Vaccine Aged Out No evan rodri eligible based on patient's age to complete this topic RSV under 20 months Aged Out No longe r eligible based on patient's age to complete this topic Rotavirus Vaccines Aged Out No longer eligible based on patient's age to complete this topic Procedures Procedure Name Priority Date/Time Associated Diagnosis Comments ECG 12-LEAD Routine 06/01/2024 5:03 PM EST Dizziness POCT GLUCOSE Routine 05/30/2024 11:13 AM EST Dizziness TSH W/REFLEX TO FT4 Routine 04/18/2024 3 :59 PM EST Amenorrhea HCG, TOTAL, QN Routine 04/18/2024 3:59 PM EST Amenorrhea POCT GLYCATED HEMOGLOBIN, TOTAL Routine 04/18/2024 3:52 PM EST Pelvic pain POCT GLUCOSE Routine 04/18/2024 3:52 PM EST Pelvic pain CHLAMYDIA/N. GONORRHOEAE RNA, TMA, UROGENITAL Routine 04/18/2024 3:50 PM EST Pelvic pain BACTERIAL VAGINOSIS PANEL Routine 04/18/2024 3:50 PM EST Pelvic pain POCT , URINE Routine 04/18/2024 3:40 PM EST Amenorrhea POCT URINALYSIS DIPSTICK Routine 04/18/2024 3:39 PM EST Amenorrhea HEPATITIS C VIRAL RNA, QUANTITATIVE, REAL-TIME PCR Routine 10/19/2023 10:29 AM EDT Encounter for routine history and physical examination of adult HIV 1/2 ANTIGEN/ANTIBODY, FOURTH GENERATION W/RFL Routine 10/19/2023 10:29 AM EDT Encounter for routine history and physical examination of adult LIPID PANEL, STANDARD Routine 10/19/2023 10:29 AM EDT Encounter for routine history and physical examination of adult Full PROPHYLAXIS - ADULT Routine 10/18/2023 3:00 PM EDT BITEWINGS - 4 RADIOGRAPHIC IMAGES Routine 10/18/2023 3:00 PM EDT PERIODIC ORAL EVALUATION - ESTABLISHED PATIENT Routine 10/18/2023 3:00 PM EDT THINPREP IMAGING PAP AND HPV MRNA E6/E7 WITH REFLEX TO HPV 16,18/45 Routine 08/27/2021 3:56 PM EDT INTRAORAL - COMPLETE SERIES OF RADIOGRAPHIC IMAGES Routine 02/03/2021 12:00 AM EDT from Last 3 Months or Most Recently Relevant to Health Maintenance Results * ECG 12 lead (06/01/2024 5:03 PM EST) Narrative Gigi Grant MD - 06/01/2024 5:03 PM EST EKG NSR 60, no ST-T changes, no Q-waves, normal axis, no arrhythmia. Gigi Grant MD ECG ORDERABLES Final Result * POCT Glucose (05/30/2024 11:13 AM EST) Only the most recent of2 resultswithin the time period is included. Glucose Blood, POC 104 60 - 200 mg/dL Blood Capillary blood specimen / Unknown 05/30/2024 11:13 AM EST Gigi Grant MD POINT OF CARE TEST ENTER/EDIT OR DERABLES Final Result * TSH with Reflex to Free T4 (04/18/2024 3:59 PM EST) Pathologist [facility] TSH reflex Free T4 1.56 0.32 - 4.0 uIU/mL [facility] Blood 04/18/2024 3:59 PM EST 04/18/2024 5:27 PM EST Olive Jaeger MD LAB BLOOD ORDERABLES Fin al Result [facility] [address] [place] [phone] * hCG, Total, Quantitative (04/18/2024 3:59 PM EST) HCG Quantitative <2 mIU/mL [facility] Comment:Weeks post LMP Appro ximate hCG(Last Menstrual Period) Range (mIU/ml)3 - 4 weeks 9 - 1304 - 5 weeks 75 - 2,6005 - 6 weeks 850 - 20,8006 - 7 weeks 4000 - 100,2007 - 12 weeks 11,500 - 289,18672 - 16 weeks 18,300 - 137,71645 - 29 weeks (2nd trimester) 1,400 - 53,03875 - 41 weeks (3rd trimester) 940 - 60,000The Jordan B- hCG assay is used for the early detection ofpregnancy; it cannot be used to diagnose any conditionunrelated to . If a B-hCG level is not supportedby the clinical evidence, results should be confirmed by analternative method (qualitative urine hCG, for example). Blood Venous blood specimen / Unknown 04/18/2024 3:59 PM EST 04/18/2024 5:27 PM EST Olive Jaeger MD LAB BLOOD ORDERABLES Fin al Result [facility] [address] [place] [phone] * POCT A1C (04/18/2024 3:52 PM EST) Hemoglobin A1C 5.9 4.0 - 6.0 % Blood 04/18/2024 3:52 PM EST Olive Jaeger MD POINT OF CARE TEST ENTER /EDIT ORDERABLES Final Result * (ABNORMAL) Bacterial Vaginosis (04/18/2024 3:50 PM EST) TRICHOMONAS VAGINALIS DETECTION BY PCR NOT DETECTED Not Detect [facility] BACTERIAL VAGINOSIS DETECTION BY PCR POSITIVE(A) Negative [facility] Comment:The BV organism targ ets of the Xpert Xpress MVP test can becommensal in women; Xpert Xpress MVP positive results forbacterial vaginosis should be considered in conjunction withother clinical and patient information to determine thedisease status. Organisms that are not detected by the XpertXpress MVP test have also been reported to be associatedwith BV and aerobic vaginitis.The Xpert Xpress MVP test performance has not been evaluatedin patients under the age of 14. RADHA GROUP DETECTION BY PCR NOT DETECTED Not Detect [facility] Radha glab krusei PCR NOT DETECTED Not Detect [facility] Swab Vaginal structure / Unknown 04/18/2024 3:50 PM EST 04/18/2024 5:50 PM EST us Olive Jaeger MD LAB MICROBIOLOGY - GENER AL ORDERABLES Final Result [facility] [address] [place] [phone] [phone] * Chlamydia/N. Gonorrhoeae RNA, TMA, Urogenitial (04/18/2024 3:50 PM EST) CT PCR NOT DETECTED Not Detect. [facility] Comment:A not detected test result does not exclude the possibilityof infection because test results can be affected byimproper specimen collection, concurrent antibiotic therapy,or the number of organisms in the specimen which may bebelow the sensitivity of the test. As with many diagnostictests, results from the Xpert CT/NG assay should beinterpreted in conjunction with other laboratory andclinical data available to the clinician.Xpert CT/NG performance has not been evaluated in patientsless than 14 years of age. The assay should not be used forthe evaluationof suspected sexual abuse or for other medico-legalindications. Additional testing is recommended in anycircumstance when false positive or false negative resultscould lead to adverse medical, social or psychologicalconsequences. NG PCR NOT DETECTED Not Detect. [facility] Comment:A not detected test result does not exclude the possibilityof infection because test results can be affected byimproper specimen collection, concurrent antibiotic therapy,or the number of organisms in the specimen which may bebelow the sensitivity of the test. As with many diagnostictests, results from the Xpert CT/NG assay should beinterpreted in conjunction with other laboratory andclinical data available to the clinician.Xpert CT/NG performance has not been evaluated in patientsless than 14 years of age. The assay should not be used forthe evaluationof suspected sexual abuse or for other medico-legalindications. Additional testing is recommended in anycircumstance when false positive or false negative resultscould lead to adverse medical, social or psychologicalconsequences. Swab Vaginal structure / Unknown 04/18/2024 3:50 PM EST 04/18/2024 5:50 PM EST Narrative [facility] - 04/19/2024 6:43 AM EST Vaginal Result [facility] Olive Jaeger MD LAB MICROBIOLOGY - GENER AL ORDERABLES Final Result [facility] [address] [place] [address] [phone] * POCT , urine manually resulted (04/18/2024 3:40 PM EST) Pathologist [facility] Preg Test, Ur Negative Negative, Indeterminate, None Detected, Invalid, Specimen unsatisfactory for evaluation, Weakly Positive Urine 04/18/2024 3:40 PM EST Result [facility] Olive Jaeger MD POINT OF CARE TEST ENTER /EDIT ORDERABLES Final Result * (ABNORMAL) POCT urinalysis dipstick manually resulted (04/18/2024 3:39 PM EST) Pathologist [facility] Color, UA Yellow Clarity, UA Clear Glucose, UA Negative Bilirubin, UA Negative Ketones, UA Negative Spec Grav, UA 1.025 Blood, UA Positive(A) Negative, None Detected Comment:TRACE-IYSED pH, UA 5.5 Protein, UA Negative Urobilinogen, UA 0.2 Leukocytes, UA Negative Negative, Rare, Trace Nitrite, UA Negative Negative, None Detected Urine 04/18/2024 3:39 PM EST Result [facility] Olive Jaeger MD POINT OF CARE TEST ENTER /EDIT ORDERABLES Final Result * Hepatitis C Viral RNA, Quantitative, Real-Time PCR (10/19/2023 10:29 AM EDT) [facility] Hepatitis C Viral Load <15 NOT DETECTED NOT DETECTED IU/mL [facility] HCV Log PCR <1.18 NOT DETECTED NOT DETECTED Log IU/mL [facility] Comment:For additional infor mation on this test, go to:http://education.[employer].com/faq/TTX41d4(This link is being provided for informational/educational purposes only.)THIS TEST WAS PERFORMED AT:[facility] [place] [phone] OLMEDO MD Blood 10/19/2023 10:2 9 AM EDT 10/19/2023 11:21 AM EDT Melissa Diaz FACULTY MEMBER LAB BLOOD ORDERABLES Final Res ult [facility] [address] [place] [phone] [phone] * HIV-1/2 Antigen and Antibodies, Fourth Generation, with Reflexes (10/19/2023 10:29 AM EDT) Pathologist [facility] HIV AB/AG Nonreactive Nonreactive [facility] Comment:HIV-1 p24 Ag and/or HIV-1/HIV-2 Ab not detected.A test result that is nonreactive does not exclude thepossibility of exposure to or infection with HIV-1 and/orHIV-2. Nonreactive results in this assay for individualswith prior exposure to HIV-1 and/or HIV-2 may be due toantigen and antibody levels that are below the limit ofdetection of this assay.The [employer] HIV Ag/Ab Combo assay result andsupplemental assay results should be interpreted inconjunction with the patient's clinical presentation,history and other laboratory results. If the results areinconsistent with clinical evidence, additional testing issuggested to confirm the result. Blood Venous blood specimen / Unknown 10/19/2023 10:29 AM EDT 10/19/2023 11:21 AM EDT us Melissa Diaz FACULTY MEMBER LAB BLOOD ORDERABLES Final Res ult Performing Organization Address [facility] Co de Phone Number [facility] [address] [place] [address] [phone] * (ABNORMAL) Lipid Panel, Standard (10/19/2023 10:29 AM EDT) Triglycerides 69 <150 mg/dL [facility] Comment:Desirable Triglyceri de: less than 150 mg/dLBorderline High Triglyceride 150-199 mg/dLHigh Triglyceride: 200-499 mg/dLVery High Triglyceride: greater than or equal to 5OO mg/dL Cholesterol 197 <200 mg/dL [facility] Comment:Desirable Cholestero l: less than 200 mg/dLBorderline High Cholesterol: 200-239 mg/dLHigh Cholesterol: greater than 239 mg/dL LDL Cholesterol Calculated 139(H) <100 mg/dL [facility] Comment:Desirable LDL: less than 100 mg/dLNear Optimal/Above Optimal LDL: 110- 129 mg/dLBorderline High LDL: 130-159 mg/dLHigh LDL: 160-189 mg/dLVery High LDL: greater than or equal to 190 mg/dL HDL Cholesterol 45 >40 mg/dL [facility] Comment:Desirable HDL: great er than 40 mg/dL Note: This HDL assay may give artificially low results in patients with liver disease. Blood Venous blood specimen / Unknown 10/19/2023 10:29 AM EDT 10/19/2023 11:21 AM EDT Melissa Diaz [facility] LAB BLOOD ORDERABLES Final Res ult Performing Organization Address [facility] Co de Phone Number [facility] [address] [place] [address] [phone] * THINPREP TIS PAP AND HPV mRNA E6/E7 WITH REFLEX TO HPV 16,18/45 (08/27/2021 3:56 PM EDT) Clinical Information: None given [facility] COMMENT SEE COMMENT [facility] Comment: EXPLANATORY NOTE: ? The Pap is a screening test for cervical cancer. It is ?? not a diagnostic test and is subject to false negative ?? and false positive results. It is most reliable when a ?? satisfactory sample, regularly obtained, is submitted ?? with relevant clinical findings and history, and when ?? the Pap result is evaluated along with historic and ?? current clinical information. ?? COMMENT: This Pap test has been evaluated with computer assisted technology. [facility] Pathology Manager: SEE COMMENT [facility] Comment: RK, CT(ASCP) CT screening location: [address] ??[id number] HPV nRNA E6/E7 Not Detected Not Detected [facility] Comment: Methodology: Non Destructive Evaluation Manager-Mediated Amplification This assay detects E6/E7 viral messenger RNA (mRNA) from 14 high-risk HPV types (16,18,31,33,35,39,45,51,52,56,58,59,66,68). ? The analytical performance characteristics of this assay have been determined by [employer]. The modifications have not been cleared or approved by the FDA. This assay has been validated pursuant to the CLIA regulations and is used for clinical purposes. ?? For additional information, please refer to http://education.[employer].com/faq/KAG970l8 (This link if provided for information/ educational purposes only.) NO COLLECTION DATE RECEIVED. WE HAVE USED THE DATE THE SPECIMEN WAS RECEIVED BY THIS LABORATORY THE COLLECTION DATE. IF THIS IS INCORRECT, PLEASE CONTACT CLIENT SERVICES. PHONE NUMBER: ?? Infection Shift in vaginal stephane suggestive of bacterial vaginosis. [facility] Interpretation/Re sult: Negative for intraepithelial lesion or malignancy. [facility] LMP: NONE GIVEN [facility] Prev. BX: NONE [facility]IV[facility] Prev. PAP: NONE [facility]IVEN [facility] SOURCE: None given [facility] Statement Of Adequacy: SEE COMMENT [facility] Comment: Satisfactory for evaluation. Endocervical/transformation zone component present. Age and/or menstrual status not provided 08/27/2021 3:56 PM EDT Melissa Diaz FACULTY MEMBER LAB PATHOLOGY ORDERABLES Final Result [facility] [address] from Last 3 Months or Most Recently Relevant to Health Maintenance Insurance [place] [facility] [employer]ICA[employer] STAND ADULT Care Teams Political Organizer Relationship Specialty Start Date End Date Melissa Diaz FNP [address] [place] [address] PCP - General Family Medicine 03/04/21
--- OUTSIDE RECORDS SUMMARY | 2024-07-12 13:45 | XMS_ITS | Encounter Summary ---
Author Organization [facility] Address [address] [place] [address] Care Team Providers Care Gm Video Name Role Phone Melissa Diaz Primary Care Provider [phone] Reason for Referral * Consultation (Routine) - Pending Review Specialty Diagnoses / Procedures Referred By Clemente perkins Referred To Contact Orthopaedic Surgery Diagnoses Ganglion cyst of dorsum of right wrist Melissa Diaz FNP [address] [place] [address] Phone: tel: fax: Kenya Paz MD [address] [place] [address] Drive [address] [place] [address] Phone: tel: fax: Referral ID Status Reason Start Date Expiration Date Visits Requested Visits Authorized [id number] Pending Review Specialty Services Required 07/12/2024 07/12/2025 1 1 * Consultation (Routine) - Authorized Specialty Diagnoses / Procedures Referred By Contac t Referred To Contact Optometry Diagnoses Blurred vision, bilateral Melissa Diaz FNP [address] [place] [address] Phone: tel: fax: [facility] OPTOMETRY [address] [place] [address] Phone: tel: fax: Referral ID Status Reason Start Date Expiration Date Visits Requested Visits Authorized [id number] Authorized Consult and Treat 07/12/2024 07/12/2025 1 1 * Consultation (Routine) - Pending Review Specialty Diagnoses / Procedures Referred By Clemente perkins Referred To Contact Physical Therapy Diagnoses Benign paroxysmal positional vertigo due to bilateral vestibular disorder Melissa Diaz FNP [address] [place] [address] Phone: tel: fax: Referral ID Status Reason Start Date Expiration Date Visits Requested Visits Authorized [id number] Pending Review Specialty Services Required 07/12/2024 07/12/2025 1 1 Reason for Visit * Reason Comments Fatigue X1 month Encounter Details Date Type Department Care Team ([facility] Contact Info) Description 07/12/2024 10:15 AM EST Office Visit [facility] CHC MED & PEDS [address] [place] [address] Melissa Diaz FNP [address] [place] [address] Healthcare maintenance (Primary Dx); Encounter for immunization; Benign paroxysmal positional vertigo due to bilateral vestibular disorder; Blurred vision, bilateral; Ganglion cyst of dorsum of right wrist Social History Tobacco Use Types Packs/Day Years [...] AM EDT documented as of this encounter Last Filed Vital Signs Vital Sign Reading [...] Mass Index 48.26 07/12/2024 10:39 AM EST documented in this encounter Patient Instructions * Patient Instructions* THANG Valencia - 07/12/2024 10:15 AM EST List of Local Eye Providers [facility] [address] [place] [address] Ages: 2 years old and above *Currently booking out 8-12 months [facility] [address] [place], [place] [phone] Ages: 3 years and above *Currently only accepting new patients with diabetes or eye-related medical conditions [facility] - Dr. Lovett [address] [place] [address] Ages: 6 years old and above [facility] [address] [phone] *Will fill the eye glasses prescription only (no exams or evaluations). Accepts [facility] Dr[address] Colten Sepulveda [address] [place], [place] Ages: 15 years old and below [facility] [address] [facility] 3rd Floor [place], [place] [phone] *Requires referral from PCP, does accept [facility] [address], [place] [phone] Ages: 7 years and above *Dr. Lovett Speaks Romanian. Accepts [facility] [address] [place], [place] [phone] Ages: 7 years and above *Dr. Lovett Speaks Romanian. Accepts [facility] [address] [place] [address] Ages: 5 years and above [facility] [address] [place], [place] [phone] *Eye evaluations, but does not dispense glasses [facility] [address] [place] [address] Ages: 6 years and above [facility] [address] [place] [address] [facility] [address] [place] [address] [facility] [address] [place], [place] [phone] [facility] (at [email or web address] [facility]) [address] [place] [address] Ages: 2 years and above *Does not accept [place] Health Insurance [facility] [address] [place] [address] Ages: 5 years and above *Not currently accepting new patients documented in this encounter Plan of Treatment Upcoming Encounters Date Type Department Care Team (Late st Contact Info) Description 08/15/2024 1:00 PM EDT Office Visit [facility] ADULT DENTAL [address] [place] [address] Joes, Jeanne [address] [place] [address] 08/16/2024 3:30 PM EDT Office Visit [facility] CHC MED & PEDS [address] [place], [place] [phone] Melissa Diaz FNP [address] [place] [address] Scheduled Orders Name Type Priority Associated Diagnoses Orde r Schedule Lipid Panel, Standard Lab Routine Healthcare maintenance Expected: 07/12/2024 (Approximate), Expires: 07/12/2025 Hemoglobin A1c Lab Routine Healthcare maintenance Expected: 07/12/2024 (Approximate), Expires: 07/12/2025 TSH with Reflex to Free T4 Lab Routine Healthcare maintenance Expected: 07/12/2024 (Approximate), Expires: 07/12/2025 Comprehensive Metabolic Panel Lab Routine Healthcare maintenance Expected: 07/12/2024 (Approximate), Expires: 07/12/2025 CBC auto differential Lab Routine Healthcare maintenance Expected: 07/12/2024, Expires: 07/12/2025 Chlamydia/N. Gonorrhoeae RNA, TMA, Urogenitial Microbiology Routine Healthcare maintenance Expected: 07/12/2024, Expires: 07/12/2025 Hepatitis C Viral RNA, Quantitative, Real-Time PCR Lab Routine Healthcare maintenance Expected: 07/12/2024 (Approximate), Expires: 07/12/2025 RPR (Monitor) with Reflex to??Titer Lab Routine Healthcare maintenance Expected: 07/12/2024 (Approximate), Expires: 07/12/2025 HIV-1/2 Antigen and Antibodies, Fourth Generation, with Reflexes Lab Routine Healthcare maintenance Expected: 07/12/2024 (Approximate), Expires: 07/12/2025 Vitamin D, 25-Hydroxy, Total, Immunoassay Lab Routine Healthcare maintenance Expected: 07/12/2024 (Approximate), Expires: 07/12/2025 Scheduled Referrals Name Type Priority Associated Diagnoses Order Schedule Referral to Physical Therapy Outpatient Referral Routine Benign paroxysmal positional vertigo due to bilateral vestibular disorder Expected: 07/12/2024 (Approximate), Expires: 07/12/2025 Referral to [facility] Eye Care Outpatient Referral Routine Blurred vision, bilateral Expected: 07/12/2024 (Approximate), Expires: 07/12/2025 Referral to Orthopaedic Surgery Outpatient Referral Routine Ganglion cyst of dorsum of right wrist Expected: 07/12/2024 (Approximate), Expires: 07/12/2025 documented as of this encounter Visit Diagnoses Diagnosis Healthcare maintenance- Primary Encounter for immunization Benign paroxysmal positional vertigo due to bilateral vestibular disorder Blurred vision, bilateral Other specified visual disturbances Ganglion cyst of dorsum of right wrist documented in this encounter Additional Health Concerns Assessment Noted Time PHQ-9 Depression Total Score: 3 10/02/19 24 1:29 PM EDT documented as of this encounter Care Teams Gm Video Relationship Specialty Start Date End Date Melissa Diaz FNP [address] [place] [address] PCP - General Family Medicine 03/04/21 documented as of this encounter
--- OUTSIDE RECORDS SUMMARY | 2024-07-12 13:45 | XMS_ITS | Encounter Summary ---
Author Organization [employer] Address [address] [place] [address] 7 [place] [address] Care Team Providers Care Farm Field Manager Name Role Phone Melissa Diaz Primary Care Provider [phone] Reason for Visit * Reason Onset Date Comments Nurse Triage 07/11/2024 Encounter Details Date Type Department Care Team ([facility] st Contact Info) Description 07/11/2024 Telephone [facility] MEDICINE [address] [place] [address] Melissa Diaz FNP [address] [place] [address] Nurse Triage Social History Tobacco Use Types Packs/Day Years [...] not want or need it 06/16 Comments Unknown Sex and Gender Information Value Date Recorded Sex Assigned at Female 03/14/2022 10:32 AM EDT Legal Sex Female 10:32 AM EDT Gender Identity Female 03/14/2022 10:32 AM EDT Sexual Orientation Straight 03/14/2022 10 :32 AM EDT documented as of this encounter Miscellaneous Notes * Telephone Encounter - Zuleyma Bond RN - 07/11/2024 10:08 AM EST No faceter needed as this quality analyst/technical writer speaks Qatari. Call returned to Mary Hess to triage below. Reports having symptoms of fatigue x 3 days. Denies any ROGER sx or fever. Denies any vomiting or diarrhea. Reports having symptoms of palpitations. Pt reports onset x 1 week as well. Endorses MERCEDES as well. NO CP or SOB. Reports BP is within normal. SBP 120-125. Reports monitoring HR with applewatch and pulse ox with in 90s even at rest. Not on any BP meds or diuretics. Not actively having palpitations at time of call. Pt offered same day appointment this morning or afternoon. Pt advised to seek ER if palpitations recur, CP, chest tightness or dizziness. Pt given appt with PCP tomorrow. Protocol Used: Heart Rate and Heartbeat Questions (Adult) Protocol-Based Disposition: See in Office or Video Visit Today Future Appointments Date Time Provider Department Center 07/12/2024 10:15 AM THANG Valencia [facility] 08/15/2024 1:00 PM Jeanne LEE [facility] Insurance verified as active per Real Time Eligibility in Epic. Positive Triage Question: * Heart beating very rapidly (e.g., > 140 / minute) and not present now (Exception: During exercise.) * All higher-acuity triage questions were negative Care Advice Discussed: * Reasons To Call Back - Chest pain, lightheadedness or difficulty breathing occurs - Heart beating over 140 beats / minute - You become worse * Telephone Encounter - Rodrigo Quach - 07/11/2024 9:59 AM EST Symptom: Lethargic (Tired) Outcome: Schedule an appointment to be seen within 3 days Reason: Caller denied all higher acuity questions The caller accepted this outcome. documented in this encounter Plan of Treatment Upcoming Encounters Date Type Department Care Team (Late st Contact Info) Description 08/15/2024 1:00 PM EDT Office Visit [facility] ADULT DENTAL [address] [place] [address] Jeanne Garcia [address] [place] [address] 08/16/2024 3:30 PM EDT Office Visit [facility] CHC MED & PEDS [address] [place] [address] Melissa Diaz FNP [address] [place] [address] documented as of this encounter Visit Diagnoses Not on filedocumented in this encounter Additional Health Concerns Assessment Noted Time PHQ-9 Depression Total Score: 3 10/02/19 24 1:29 PM EDT documented as of this encounter Care Teams Farm Field Manager Relationship Specialty Start Date End Date Melissa Diaz FNP [address] [place] [address] PCP - General Family Medicine 03/04/21 documented as of this encounter
--- OUTSIDE RECORDS SUMMARY | 2024-07-12 13:45 | XMS_ITS | Encounter Summary ---
Author Organization [facility] Address [address] [place] [address] Care Team Providers Care Boiler Control Room Operator Name Role Phone Melissa Diaz Primary Care Provider [phone] Encounter Details Date Type Department Care Team (Latest Contact Info) Description 02/03/2021 Abstract [facility] CONVERSIONS Dental, Provider, DDS Social History Tobacco Use Types Packs/Day Years Used Date Smoking Tobacco: Never Assessed Comments Unknown Sex and Gender Information Value Date Recorded Sex Assigned at Female 03/14/2022 10:32 AM EDT Legal Sex Female 10:32 AM EDT Gender Identity Female 03/14/2022 10:32 AM EDT Sexual Orientation Straight 03/14/2022 10 :32 AM EDT documented as of this encounter Plan of Treatment Upcoming Encounters Date Type Department Care Team ( st Contact Info) Description 08/15/2024 1:00 PM EDT Office Visit [facility] ADULT DENTAL [address] [place] [address] Jose Jeanne [address] [place] [address] 08/16/2024 3:30 PM EDT Office Visit [facility] CHC MED & PEDS [address] [place] [address] Melissa Diaz FNP [address] [place] [address] documented as of this encounter Visit Diagnoses Not on filedocumented in this encounter Care Teams Boiler Control Room Operator Relationship Specialty Start Date End Date Melissa Diaz FNP [address] [place] [address] PCP - General Family Medicine 03/04/21 documented as of this encounter
--- OUTSIDE RECORDS SUMMARY | 2024-07-12 13:45 | XMS_ITS | Encounter Summary ---
Author Organization [employer] Address [address] [place] [address] [address], [place] [address] Care Team Providers Care Solar Energy Consultant And Designer Name Role Phone Melissa Diaz Primary Care Provider [phone] Reason for Visit * Reason Onset Date Comments Referral 08/18/2022 Encounter Details Date Type Department Care Team ([facility] st Contact Info) Description 08/18/2022 Telephone [facility] MEDICINE [address] [place] [address] Melissa Diaz FNP [address] [place] [address] Referral Social History Tobacco Use Types Packs/Day Years [...] encounter Miscellaneous Notes * Telephone Encounter - Maricel Serrano - 08/18/2022 2:58 PM EDT Tc from pt requesting for referral for Gynecology to be sent to [facility] at [address] [place] [address] If any questions please contact pt at [phone] Montenegrin Speaker documented in this encounter Plan of Treatment Upcoming Encounters Date Type Department Care Team (Late st Contact Info) Description 08/15/2024 1:00 PM EDT Office Visit [facility] ADULT DENTAL [address] [place] [address] Jose Jeanne [address] [place] [address] 08/16/2024 3:30 PM EDT Office Visit [facility] CHC MED & PEDS [address] [place] [address] Melissa Diaz FNP [address] [place] [address] documented as of this encounter Visit Diagnoses Not on filedocumented in this encounter Additional Health Concerns Assessment Noted Time PHQ-9 Depression Total Score: 0 05/03/20 3:54 PM EST documented as of this encounter Care Teams Solar Energy Consultant And Designer Relationship Specialty Start Date End Date Melissa Diaz FNP [address] [place] [address] PCP - General Family Medicine 03/04/21 documented as of this encounter
[2024-07-12 14:42] LABS: MANUAL DIFF FLAG NO
[2024-07-12 14:49] LABS: Basophils Percent Auto 0.4 % (0-2); Eosinophils Absolute Auto 0.1 X10*3/uL (0.0-0.4); Eosinophils Percent Auto 1.1 % (0-4); Hematocrit 41.1 % (37.0-47.0); Imm Gran Abs Auto 0.03 X10*3/uL (0.00-0.03); Imm Gran Pct Auto 0.3 % (0.0-0.4); Lymphocytes Absolute Auto 2.8 X10*3/uL (1.2-4.9); Lymphocytes Percent Auto 29.5 % (20-40); Mean Corpuscular HGB Conc 31.6 g/dl (31.0-35.0); Mean Corpuscular Hemoglobin 26.8 pg (27.0-33.0); Mean Corpuscular Volume 84.7 fL (80.0-98.0); Mean Platelet Volume 12.9 fL (9.4-12.3); Monocytes Absolute Auto 0.5 X10*3/uL (0.1-1.2); Monocytes Percent Auto 4.8 % (2-11); Neutrophils Absolute Auto 5.9 x10*3/uL (2.0-8.3); Neutrophils Percent Auto 63.9 % (45-73); Platelet Count 303 X10*3/uL (160-400); Red Blood Count 4.85 X10*6/uL (4.20-5.50); Red Cell Distribution Width 13.5 % (11.0-16.0); White Blood Count 9.3 X10*3/uL (4.8-10.8)
[2024-07-12 14:56] LABS: Estimated Average Glucose 120 mg/dL; Hemoglobin A1C 135.0077 umol/L; Hemoglobin A1c % 5.8 % (<6.0); Total Hemoglobin (HGBA1C) 3396.0209 umol/L
[2024-07-12 16:28] LABS: CT PCR NOT DETECTED (Not Detect.); NG PCR NOT DETECTED (Not Detect.)
[2024-07-12 16:35] LABS: Alanine Aminotransferase 23 U/L (0-31); Albumin Level 4.3 g/dL (3.5-5.0); Anion Gap 11 (12-20); Aspartate Amino Transferase 23 U/L (5-31); Bilirubin Total 0.5 mg/dL (0.0-1.0); Blood Urea Nitrogen 15 mg/dL (9-16); Calcium 9.9 mg/dL (8.4-10.2); Carbon Dioxide 28 mmol/L (22-29); Chloride 103 mmol/L (96-108); Cholesterol 199 mg/dL (<200); Estimated Glomerular Filt Rate > 60; Glucose Random 101 mg/dL (60-115); HDL Cholesterol 46 mg/dL (>40); LDL Cholesterol Calculated 135 mg/dL (<100); Sodium 138 mmol/L (135-145); Total Protein 8.2 g/dL (6.5-8.0); Triglycerides 91 mg/dL (<150)
[2024-07-12 16:50] LABS: TSH reflex Free T4 1.57 uIU/mL (0.32-4.0); Vitamin D 25-OH Total 27.3 ng/mL (>30)
[2024-07-12 17:53] LABS: Alkaline Phosphatase 63 U/L (39-117)
[2024-07-14 15:39] LABS: RPR Rapid Plasma Reagin NON-REACTIVE (NON-REACTIVE)
[2024-07-15 09:24] LABS: HIV AB/AG Nonreactive (Nonreactive); HIV Num 1 0.06 S/CO (0.00-0.99)
[2024-07-15 12:07] LABS: HCV Log PCR <1.18 NOT DETECTED Log IU/mL (NOT DETECTED); HepC Viral Load <15 NOT DETECTED IU/mL (NOT DETECTED)
== END 2024-07-12 11:31 | disposition home or self-care (01) ==
LOC: HO.CHCLDS 11:30
PROVIDERS: Visit Provider Registered Nurse
DX: Z00.00 Encounter for general adult medical examination without abnormal findings (principal)
CPT/HCPCS: 36415; 80053; 80061; 82306; 83036; 84443; 85025; 86592; 87389; 87491; 87522; 87591

== ENCOUNTER 2024-08-14 15:08 | Outpatient (AMB) | payer MEDICAID, SELFPAY ==
--- NOTE | 2024-08-14 15:18 | A.OFFVIS_ITS ---
Vital Signs 08/14/24 15:21 Height 5 ft 5 in Weight 283 lb BMI 47.1 Intake Visit Reasons: OV-Ganglion cyst of dorsum of RT wrist-DOS 07/07/22 Intake Note: Mary Colon 32 yr old female presents today for her follow up visit for her S/P right DWG Exc from 07/07/22. States the cyst has returned and would like to discuss surgery once again. Allergies No Known Allergies [No Known Allergies*] Allergy (Verified 08/14/24 15:22) HPI HPI OV-Ganglion cyst of dorsum of RT wrist-DOS 07/07/22: Details: Mary is a 34 year old right hand dominant woman who returns with complaints of a recurrent right wrist ganglion cyst, S/P dorsal wrist ganglion excision, DOS: 07/07/22. She says this returned recently in the same area as previously, and she woul like to discuss surgery again. 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 Sister Thyroid condition Asthma Sister No problems noted. Brother No problems noted. Brother No problems noted. Brother Hypertension Son No problems noted. 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 Somewhat hesitant to move her wrist, we worked on ROM exercises today in clinic. There is a dorsal wrist ganglion on the dorsal central aspect of her right wrist, measuring ~1.5cm in diameter. No overlying skin changes, swelling or erythema. Tender to palpation. Not mobile. Small keloid scar in the area of her healed incision Psych Appearance: grossly normal Affect: normal affect Attitude: cooperative Assessment & Plan Assessment & Plan (1) Ganglion cyst of dorsum of right wrist: Code(s): M67.431 - Ganglion, right wrist Category: Medical Plan Assessment & Plan: 1. Right recurrent dorsal wrist Ganglion cyst, S/P excision DOS: 07/07/22 Measuring ~1.5cm in diameter I educated her about this condition I discussed operative and non-operative treatment options The patient would like to proceed with surgery The risks and benefits of operative treatment were discussed with the patient and the patient wishes to proceed with surgery. These risks include, but are not limited to risk of damage to blood vessels, nerves, tendons, infection, recurrence, incomplete relief of preoperative symptoms, persistent pain, possible need for further surgery and the risks associated with regional blocks and anesthesia. The plan is to take the patient to the operating room sometime in the next few weeks for the following procedures: 1. Right dorsal wrist ganglion REPEAT excision, under local All of the preoperative paperwork including the consent was reviewed today. All the patient's questions were answered. The patient understands that they will be contacted by our fur finisher seamstress so on to schedule this procedure She denies Diabetes, blood thinners, asthma, heart, lung, kidney issues Scribed for Kenya Paz MD by Boo Barreto, regional medical director, on 08/14/24 at 3:40 PM, EST. Coding Level of Care Code Est Pt Level 4 (08998) Diagnoses Ganglion cyst of dorsum of right wrist M67.431
[2024-08-14 15:21] VITALS: BMI 47.1
--- OUTSIDE RECORDS SUMMARY | 2024-08-14 17:33 | XMS_ITS | Encounter Summary ---
Author Organization [employer] Address [address] [place] [address] 7 [place] [address] Care Team Providers Care Senior Data Warehouse Architect Name Role Phone Melissa Diaz Primary Care Provider [phone] Reason for Visit * Reason Onset Date Comments Chart Prep 08/13/2024 Encounter Details Date Type Department Care Team ([facility] Contact Info) Description 08/13/2024 Telephone [facility] MED & PEDS [address] [place], [place] [phone] Melissa Diaz FNP [address] [place] [address] Chart Prep Social History Tobacco Use Types Packs/Day Years [...] encounter Miscellaneous Notes * Telephone Encounter - Aroldo Pierre [place] - 08/13/2024 4:06 PM EDT Chart Prep Labs: done Images: not done Vaccines due: no updates Referrals: appointment pending Screenings: not applicable Overdue care gaps: SBIRT, PHQ-9, and PISQ documented in this encounter Plan of Treatment Upcoming Encounters Date Type Department Care Team (Late st Contact Info) Description 08/15/2024 1:00 PM EDT Office Visit [facility] ADULT DENTAL [address] [place] [address] Jose Jeanne [address] [place] [address] 08/16/2024 3:30 PM EDT Office Visit [facility] CHC MED & PEDS [address] [place] [address] Melissa Diaz FNP [address] [place] [address] documented as of this encounter Visit Diagnoses Not on filedocumented in this encounter Additional Health Concerns Assessment Noted Time PHQ-9 Depression Total Score: 3 10/02/19 24 1:29 PM EDT documented as of this encounter Care Teams Senior Data Warehouse Architect Relationship Specialty Start Date End Date Melissa Diaz FNP [address] [place] [address] PCP - General Family Medicine 03/04/21 documented as of this encounter
--- OUTSIDE RECORDS SUMMARY | 2024-08-14 17:33 | XMS_ITS | Clinical Summary ---
Author Organization [facility] [address] [facility] Address [address] [place] [address] Phone Care Team Providers Care Inventory And Pricing Associate Name Role Phone Jonn Campos MD Primary Care Provider [phone] Allergies No known active allergies Medications PNV [...] - 2023-2 5 season) 2024 Influenza Vaccine (Season Ended) 2025 02/02/20 17 DTaP,Tdap,and Td Vaccines (2 - Td or [...] * Cervical Cancer Screening: HPV (01/24/2023) [facility]ologist [facility] Cervical Cancer Screening: HPV abstracted, negative [facility] Provider HEALTH MAINTENANCE Final Result * HIV Screening (01/03/2018) [facility] HIV Screening abstracted [facility] Provider HEALTH MAINTENANCE Final Result * Hepatitis C Screening (01/03/2018) [facility] Hepatitis C Screening abstracted [facility] Provider HEALTH MAINTENANCE Final Result from Last 3 Months or Most Recently Relevant to Health Maintenance Insurance MEDICAID - [place] Care Teams Inventory And Pricing Associate Relationship Specialty Start Date End Date Jonn Campos MD [address] [place] [address] Dr [place] PCP - General Internal Medicine 01/18/19
--- OUTSIDE RECORDS SUMMARY | 2024-08-14 17:33 | XMS_ITS | Encounter Summary ---
Author Organization [employer] [facility] Address [address] [place] [address] Care Team Providers Care Labour Market Economist Name Role Phone Melissa Diaz Primary Care Provider [phone] Encounter Details Date Type Department Care Team (Latest Contact Info) Description 02/03/2021 Abstract [facility] CONVERSIONS Dental, Provider, DDS Social History [...] Description 08/15/2024 1:00 PM EDT Office Visit [facility] ADULT DENTAL [address] [place] [address] Jose Jeanne [address] [place] [address] 08/16/2024 3:30 PM EDT Office Visit [facility] CHC MED & PEDS [address] [place] [address] Melissa Diaz FNP [address] [place] [address] documented as of this encounter Visit Diagnoses Not on filedocumented in this encounter Care Teams Labour Market Economist Relationship Specialty Start Date End Date Melissa Diaz FNP [address] [place] [address] PCP - General Family Medicine 03/04/21 documented as of this encounter
--- OUTSIDE RECORDS SUMMARY | 2024-08-14 17:33 | XMS_ITS | Clinical Summary ---
Author Organization [employer] Address [address] [place] [address] 7[address] [place] [address] Care Team Providers Care Legal Practice Manager Name Role Phone CurtMelissa clarke THANG Primary Care Provider [phone] Allergies No known active allergies Medications Blood [...] dorsum of right wrist Assessment & Plan (07/13/2024 6:05 PM EST): Surgery completed 2022 by [facility] Michael Paz Referral to reestablish with Ortho June 2024 Assessment & Plan (10/03/2023 9:52 AM EDT): Surgery completed 2022 by [facility] Jessica Paz Normal oral exam 10/02/2023 Overview (10/03/2023): Pap: NILM, HPV neg on 08/25/21 Last PE: 10/02/23 Dental: UTD Endometrial polyp 10/02/2023 Overview (10/02/2023): Noted on US May 2022 - 4mm endometrial polyp Followed by Corry BENAVIDEZ H/O lumbar discectomy 05/03/2022 Overview (10/02/2023): L4/5 discectomy for left lumbar radiculopathy on 11/24/20 ([facility]) Assessment & Plan (10/03/2023 9:51 AM EDT): Continues with chronic low back pain, will check XR Plan for referral to [facility] Pain Management pending results Headache 09/22/2021 Assessment & Plan (10/03/2023 9:51 AM EDT): Continues with APAP and ibuprofen PRN Loss of hair 09/22/2021 Assessment & Plan (10/03/2023 9:51 AM EDT): Previous tx with topical Mindoxidil Check TSH and Vit D Referral to re-establish with Derm team Encounters Date Type Department Care Team Description 08/13/2024 Telephone [facility] MED [facility]EDS [address] [place] [address] Melissa Diaz FNP Chart Prep 07/26/2024 Population Health Risk Score Community [facility] ([facility]) Department [address] [phone] Provider, Population Health Generic 07/15/2024 Telephone [facility] MEDICINE [address] [place] [phone] Melissa Diaz FNP Results 07/12/2024 10:15 AM EST Office Visit [facility] [address] [place], [place] [phone] Melissa Diaz FNP Benign paroxysmal positional vertigo due to bilateral vestibular disorder (Primary Dx); Encounter for immunization; Healthcare maintenance; Blurred vision, bilateral; Ganglion cyst of dorsum of right wrist; Other fatigue 07/12/2024 Travel 07/11/2024 Telephone [facility] [address] [place] [address] [phone] Melissa Diaz FNP Nurse Triage 05/30/2024 11:20 AM EST Office Visit [facility] [address] [place] [address] [phone] Gigi Grant MD Benign paroxysmal positional vertigo due to bilateral vestibular disorder (Primary Dx); IFG (impaired fasting glucose); Dizziness 05/30/2024 Telephone [facility] [address] [place] [address] [phone] Tashia Kitchen RN [facility] 07/08; BS Back sugery 11/24/20 from Last 3 Months Immunizations Name Administration [...] 08/15/2024 1:00 PM EDT Office Visit [facility] ADULT DENTAL [address] [place] [address] Jose, Jeanne [address] [place] [address] 08/16/2024 3:30 PM EDT Office Visit [facility] MED & PEDS [address] [place] [address] PhalenMelissa, MECHANIC INSULATOR [address] [place] [address] Health Maintenance Due Date Last Done Comments Family Planning (PISQ) 2004 Dental X-Ray: Full Mouth 02/05/2024 02/03/2021, 0701/2018 Dental Oral Exam 04/19/2024 10/18/2023, , 11/20/2017, Additional history exists Dental Prophylaxis 04/19/2024 10/18/2023, 0 02/03/2021, 11/20/2017, Additional history exists Pap Smear 08/27/2024 08/27/2021 Alcohol/Substance Use Screening 10/01/2024 10/02/2023 Depression Screening 10/01/2024 10/02/2023, 10/02/19 Dental X-Ray: Bitewings 10/18/2024 10/18/19, 02/03/2021, 11/20/2017 Influenza Vaccine (#1) 2024 1, 05/17/2019, 02/01/2017 Postponed from 01/14/2024 (Patient Refused) COVID-19 Vaccine ( season) 2025 07/23/2021, 09/30/2020, 09/02/2020 Postponed from 01/14/2024 (Patient Refused) Diabetes: Hemoglobin A1C 07/12/2025 025, 04/18/2024, 10/19/2023, Additional history exists SDOH Screening 07/12/2025 07/12/2024 Tobacco Screening 07/12/2025 07/12/2024 Cervical Cancer Screening 08/27/2026 HPV/Cotest 08/27/2026 08/27/2021 DTaP/Tdap/Td Vaccines (3 - Td or Tdap) 05/17/2029 05/17/2019, 03/29/2017 Lipid Panel 07/12/2029 07/12/2024, 06/0 10/2023, 04/12/2021 Zoster Vaccines (1 of 2) 2039 RSV Patients and Patients Aged 60 years or older (1 - 1-dose 75+ series) 2064 Hepatitis B Vaccines Completed 03/17/2021, 11/05/2019, 06/07/2019 HIV Screening Completed 07/12/2024, 06/0 10/2023, 11/19/2020, Additional history exists Hepatitis C Screening Completed 07/12/2024 , 10/19/2023, 05/29/2019 Pneumococcal Vaccine: Pediatrics (0 to 5 Years) [...] Procedure Name Priority Date/Time Associated Diagnosis Comments CHLAMYDIA/N. GONORRHOEAE RNA, TMA, UROGENITAL Routine 07/12/2024 11:40 AM EST Healthcare maintenance VITAMIN D,25-OH,TOTAL,IA Routine 07/12/2024 11:32 AM EST Other fatigue HIV 1/2 ANTIGEN/ANTIBODY, FOURTH GENERATION W/RFL Routine 07/12/2024 11:32 AM EST Other fatigue RPR (MONITOR) W/REFL TITER Routine 07/12/2024 11:32 AM EST Other fatigue HEPATITIS C VIRAL RNA, QUANTITATIVE, REAL-TIME PCR Routine 07/12/2024 11:32 AM EST Healthcare maintenance CBC WITH AUTO DIFFERENTIAL Routine 07/12/2024 11:32 AM EST Other fatigue COMPREHENSIVE METABOLIC PANEL Routine 07/12/2024 11:32 AM EST Healthcare maintenance TSH W/REFLEX TO FT4 Routine 07/12/2024 1 1:32 AM EST Other fatigue HEMOGLOBIN A1C Routine 07/12/2024 11:32 AM EST Healthcare maintenance LIPID PANEL, STANDARD Routine 07/12/2024 11:32 AM EST Healthcare maintenance ECG 12-LEAD Routine 06/01/2024 5:03 PM EST Dizziness POCT GLUCOSE Routine 05/30/2024 11:13 AM EST Dizziness Full PROPHYLAXIS - ADULT Routine 10/18/2023 3:00 [...] Recently Relevant to Health Maintenance Results * Chlamydia/N. Gonorrhoeae RNA, TMA, Urogenitial (07/12/2024 11:40 AM EST) CT PCR NOT DETECTED Not Detect. [facility] Comment:A not detected test result [...] psychologicalconsequences. NG PCR NOT DETECTED Not Detect. [facility] Comment:A not detected test result [...] lead to adverse medical, social or psychologicalconsequences. Urine (Urine, Random) 07/12/2024 11:40 AM EST 07/12/2024 2:40 PM EST Narrative [facility] - 07/12/2024 4:28 PM EST Urine Melissa Diaz [facility] MICROBIOLOGY - GENERAL ORD ERABLES Final Result Performing Organization Address [facility] [facility] Co de Phone Number [facility] [address] [place] [phone] * (ABNORMAL) Vitamin D, 25-Hydroxy, Total, Immunoassay (07/12/2024 11:32 AM EST) Vitamin D 25-OH Total 27.3(L) >30 ng/mL [facility] Comment:Health Based Referen ce Values*< 20 ng/mL Dnbesnmeh04-08 ng/mL Insufficient> 30 ng/mL Sufficient*Arnulfo BARBOUR. N Engl J Med. 2007;357:266-280Care must be taken in interpreting Vitamin D results fromdifferent laboratories and methodologies. Published datademonstrated that results from patients undergoinghemodialysis may show a negative bias when tested withvarious automated 25-OH vitamin D assays when compared toLC-MS/MS.When testing samples from patients whose predominant form ofVitamin D is Vitamin D2, such as patients receiving VitaminD2 supplementation, results that are subtherapeutic shouldbe confirmed with another method such as LC-MS/MS. Blood Venous blood specimen / Unknown 07/12/2024 11:32 AM EST 07/12/2024 2:33 PM EST Melissa Diaz [facility] BLOOD ORDERABLES Final Res ult Performing Organization Address [facility] Co de Phone Number [facility] [address] [place] [phone] * TSH with Reflex to Free T4 (07/12/2024 11:32 AM EST) TSH reflex Free T4 1.57 0.32 - 4.0 uIU/mL [facility] Blood 07/12/2024 11:3 2 AM EST 07/12/2024 2:33 PM EST Melissa Diaz [facility] BLOOD ORDERABLES Final Res ult Performing Organization Address City/[facility]/ZIP Co de Phone Number [facility] [address] [place] [address] [phone] * Hepatitis C Viral RNA, Quantitative, Real-Time PCR (07/12/2024 11:32 AM EST) [facility] Hepatitis C Viral Load <15 NOT DETECTED NOT DETECTED IU/mL [facility] HCV Log PCR <1.18 NOT DETECTED NOT DETECTED Log IU/mL [facility] Comment:For additional infor ananth, please refer tohttp://education.Best Before Media/faq/OZQ56f0(This link is being provided for informational/educational purposes only.)THIS TEST WAS PERFORMED AT:[employer] [place] [phone] OLMEDO MD Blood 07/12/2024 11:3 2 AM EST 07/12/2024 2:33 PM EST Melissa Diaz [facility] BLOOD ORDERABLES Final Res ult Performing Organization Address City/[facility]/ZIP Co de Phone Number [facility] [address] [place] [address] [phone] * (ABNORMAL) CBC auto differential (07/12/2024 11:32 AM EST) [facility] White Blood Count 9.3 4.8 - 10.8 X10*3/uL [facility] Red Blood Count 4.85 4.20 - 5.50 X10*6/uL [facility] Hemoglobin 13.0 12.0 - 16.0 g/dl [facility] Hematocrit 41.1 37.0 - 47.0 % [facility] Mean Corpuscular Volume 84.7 80.0 - 98.0 fL [facility] Mean Corpuscular Hemoglobin 26.8(L) 27.0 - 33.0 pg [facility] Mean Corpuscular HGB Conc 31.6 31.0 - 35.0 g/dl [facility] Red Cell Distribution Width 13.5 11.0 - 16.0 % [facility] Platelet Count 303 160 - 400 X10*3/uL [facility] Mean Platelet Volume 12.9(H) 9.4 - 12.3 fL [facility] Neutrophils Percent Auto 63.9 45 - 73 % [facility] Imm Gran Pct Auto 0.3 0.0 - 0.4 % [facility] Lymphocytes Percent Auto 29.5 20 - 40 % [facility] Monocytes Percent Auto 4.8 2 - 11 % [facility] Eosinophils Percent Auto 1.1 0 - 4 % [facility] Basophils Percent Auto 0.4 0 - 2 % [facility] NRBC Pct Auto 0.0 0.0 - 0.2 /100WBC [facility] Neutrophils Absolute Auto 5.9 2.0 - 8.3 x10*3/uL [facility] Imm Gran Abs Auto 0.03 0.00 - 0.03 X10*3/uL [facility] Lymphocytes Absolute Auto 2.8 1.2 - 4.9 X10*3/uL [facility] Monocytes Absolute Auto 0.5 0.1 - 1.2 X10*3/uL [facility] Eosinophils Absolute Auto 0.1 0.0 - 0.4 X10*3/uL [facility] Basophils Absolute Auto 0.0 0.0 - 0.2 X10*3/uL [facility] NRBC Abs Auto 0.000 0.0 - 0.012 X10*3/uL [facility] Blood Venous blood specimen / Unknown 07/12/2024 11:32 AM EST 07/12/2024 2:39 PM EST us Melissa Diaz MECHANIC INSULATOR LAB BLOOD ORDERABLES Final Res ult [facility] [address] [place] [phone] * RPR (Monitor) with Reflex to??Titer (07/12/2024 11:32 AM EST) RPR (Monitor) w/Refl Titer NON-REACTI VE NON-REACT CHRISTELLE [facility] Comment:THIS TEST WAS PERFOR MED AT:[employer] [place] [phone] OLMEDO MD Rapid Plasma Reagin Ab Titer TNP [facility] Blood Venous blood specimen / Unknown 07/12/2024 11:32 AM EST 07/12/2024 2:33 PM EST Melissa Diaz [facility] BLOOD ORDERABLES Final Res ult Performing Organization Address [place] [facility]/ZIP Co de Phone Number [facility] [address] [place] [phone] * HIV-1/2 Antigen and Antibodies, Fourth Generation, with Reflexes (07/12/2024 11:32 AM EST) HIV AB/AG Nonreactive Nonreactive [facility] Comment:HIV-1 p24 Ag and/or HIV-1/HIV-2 Ab not detected.A test result that is nonreactive does not exclude thepossibility of exposure to or infection with HIV-1 and/orHIV-2. Nonreactive results in this assay for individualswith prior exposure to HIV-1 and/or HIV-2 may be due toantigen and antibody levels that are below the limit ofdetection of this assay.The [employer] HIV Ag/Ab Combo assay result andsupplemental assay results should be interpreted inconjunction with the patient's clinical presentation,history and other laboratory results. If the results areinconsistent with clinical evidence, additional testing issuggested to confirm the result. Blood Venous blood specimen / Unknown 07/12/2024 11:32 AM EST 07/12/2024 2:33 PM EST Melissa Diaz [facility] BLOOD ORDERABLES Final Res ult Performing Organization Address City/[facility]/ZIP Co de Phone Number [facility] [address] [place] [address] [phone] * Hemoglobin A1c (07/12/2024 11:32 AM EST) Hemoglobin A1c 5.8 <6.0 % [facility] Comment:Hemoglobin A1C Refer ence Range Adults: 4.8 - 6.0 % Non diabetic: < 6.0 % Goal: < 7.0 %Additional Action Suggested: > 8.0 %Note: Hemoglobin A1c results are invalid for patients with abnormal amounts of HbF. Blood transfusions may impact the HbA1c concentration in the patient sample. Estimated Average Glucose 120 mg/dL [facility] Comment:eAG = Estimated ave rage glucose which is %A1C expressed asaverage glucose, using the formula of the O1M-BdcpfksWzskits Glucose study (ADAG), Diabetes Care, Vol.31,#8,Dec. 2007 Blood Venous blood specimen / Unknown 07/12/2024 11:32 AM EST 07/12/2024 2:39 PM EST us Melissa Diaz MECHANIC INSULATOR LAB BLOOD ORDERABLES Final Res ult [facility] [address] [place] [phone] * (ABNORMAL) Lipid Panel, Standard (07/12/2024 11:32 AM EST) Triglycerides 91 <150 mg/dL [facility] Comment:Desirable Triglyceri de: less than 150 mg/dLBorderline High Triglyceride 150-199 mg/dLHigh Triglyceride: 200-499 mg/dLVery High Triglyceride: greater than or equal to 5OO mg/dL Cholesterol 199 <200 mg/dL [facility] Comment:Desirable Cholestero l: less than 200 mg/dLBorderline High Cholesterol: 200-239 mg/dLHigh Cholesterol: greater than 239 mg/dL LDL Cholesterol Calculated 135(H) <100 mg/dL [facility] Comment:Desirable LDL: less than 100 mg/dLNear Optimal/Above Optimal LDL: 110- 129 mg/dLBorderline High LDL: 130-159 mg/dLHigh LDL: 160-189 mg/dLVery High LDL: greater than or equal to 190 mg/dL HDL Cholesterol 46 >40 mg/dL [facility] Comment:Desirable HDL: great er than 40 mg/dL Note: This HDL assay may give artificially low results in patients with liver disease. Blood Venous blood specimen / Unknown 07/12/2024 11:32 AM EST 07/12/2024 2:33 PM EST us Melissa Diaz MECHANIC INSULATOR LAB BLOOD ORDERABLES Final Res ult [facility] [address] [place] [phone] [phone] * (ABNORMAL) Comprehensive Metabolic Panel (07/12/2024 11:32 AM EST) Sodium 138 135 - 145 mmol/L [facility] Potassium 4.0 3.3 - 5.1 mmol/L [facility] Chloride 103 96 - 108 mmol/L [facility] Carbon Dioxide 28 22 - 29 mmol/L [facility] Anion Gap 11(L) 12 - 20 [facility] Urea Nitrogen (BUN) 15 9 - 16 mg/dL [facility] Creatinine, Serum 0.70 0.5 - 1.4 mg/dL [facility] Estimated Glomerular Filt Rate >60 [facility] Comment:Chronic Kidney Disea se: Estimated GFR < 60 mL/min/1.95p1Rhzkdk Kidney Disease: Estimated GFR < 15 mL/min/1.73m2 Glucose 101 60 - 115 mg/dL [facility] Calcium 9.9 8.4 - 10.2 mg/dL [facility] Bilirubin, Total 0.5 0.0 - 1.0 mg/dL [facility] Aspartate Amino Transferase 23 5 - 31 U/L [facility] Alanine Aminotransferase 23 0 - 31 U/L [facility] Total Protein 8.2(H) 6.5 - 8.0 g/dL [facility] Albumin Level 4.3 3.5 - 5.0 g/dL [facility] Alkaline Phosphatase 63 39 - 117 U/L [facility] Blood Venous blood specimen / Unknown 07/12/2024 11:32 AM EST 07/12/2024 2:33 PM EST Melissa Diaz MECHANIC INSULATOR LAB BLOOD ORDERABLES Final Res ult [facility] [address] [place] [phone] * ECG 12 lead (06/01/2024 5:03 PM EST) Narrative Gigi Grant MD - 06/01/2024 5:03 PM EST EKG NSR 60, no ST-T changes, no Q-waves, normal axis, no arrhythmia. Gigi Grant MD ECG ORDERABLES Final Result * POCT Glucose (05/30/2024 11:13 AM EST) Glucose Blood, POC 104 60 - 200 mg/dL Blood Capillary blood specimen / Unknown 05/30/2024 11:13 AM EST Gigi Grant MD POINT OF CARE TEST ENTER/EDIT OR DERABLES Final Result * THINPREP TIS PAP AND HPV mRNA E6/E7 WITH REFLEX TO HPV 16,18/45 (08/27/2021 3:56 PM EDT) Pathologist [facility] Clinical Information: None given [facility] COMMENT SEE COMMENT [facility] [...] has been evaluated with computer assisted technology. [facility] Gambling Floor Supervisor: SEE COMMENT [facility] Comment: RK CT(ASCP) CT screening location: [address] ??[phone] HPV nRNA E6/E7 Not Detected Not Detected [facility] Comment: Methodology: Assignment Manager-Mediated Amplification This assay detects E6/E7 viral messenger RNA (mRNA) from 14 high-risk HPV types (16,18,31,33,35,39,45,51,52,56,58,59,66,68). ? The analytical performance characteristics of this assay have been determined by [employer]. The modifications have not been cleared or approved by the FDA. This assay has been validated pursuant to the CLIA regulations and is used for clinical purposes. ?? For additional information, please refer to http://education.Best Before Media/faq/YKN409p9 (This link if provided for information/ educational purposes only.) NO COLLECTION DATE RECEIVED. WE HAVE USED THE DATE THE SPECIMEN WAS RECEIVED BY THIS LABORATORY THE COLLECTION DATE. IF THIS IS INCORRECT, PLEASE CONTACT CLIENT SERVICES. PHONE NUMBER: ?? Infection Shift in vaginal stephane suggestive of bacterial vaginosis. [facility] Interpretation/Re sult: Negative for intraepithelial lesion or malignancy. [facility] LMP: NONE GIVEN [facility] Prev. BX: NONE GIVEN [facility] Prev. PAP: NONE GIVEN [facility] SOURCE: None given [facility] Statement Of Adequacy: SEE COMMENT [facility] Comment: Satisfactory for evaluation. Endocervical/transformation zone component present. Age and/or menstrual status not provided 08/27/2021 3:56 PM EDT Melissa Diaz [facility] ORDERABLES Final Result [facility] [address] from Last 3 Months or Most Recently Relevant to Health Maintenance Insurance [facility] C[place] STAND AD[place] Care Teams Legal Practice Manager Relationship Specialty Start Date End Date Melissa Diaz FNP [address] [place] [address] PCP - General Family Medicine 03/04/21
--- OUTSIDE RECORDS SUMMARY | 2024-08-14 17:33 | XMS_ITS | Encounter Summary ---
Author Organization [facility] Address [address] [place] [address] Care Team Providers Care Supervisor Blast Furnace Name Role Phone Melissa Diaz Primary Care Provider [phone] Encounter Details Date Type Department Care Team (Late st Contact Info) Description 04/29/2022 Orders Only [facility] MEDICINE [address] [place] [address] Rebecca Camacho, JERRY Social History Tobacco Use [...] Description 08/15/2024 1:00 PM EDT Office Visit [facility] ADULT DENTAL [address] [place] [address] Jeanne Garcia [address] [place] [address] 08/16/2024 3:30 PM EDT Office Visit [facility] MED & PEDS [address] [place], [place] [phone] Melissa Diaz FNP [address] [place], [place] [phone] documented as of this encounter Visit Diagnoses Not on filedocumented in this encounter Care Teams Supervisor Blast Furnace Relationship Specialty Start Date End Date Melissa Diaz FNP [address] [place] [phone] PCP - General Family Medicine 03/04/21 documented as of this encounter
--- OUTSIDE RECORDS SUMMARY | 2024-08-14 17:33 | XMS_ITS | Encounter Summary ---
Author Organization [employer] Address [address] [place] [address] [address] [address] Care Team Providers Care Candy Mixer Name Role Phone Melissa Diaz Primary Care Provider [phone] Reason for Visit * Reason Onset Date Comments Referral 08/18/2022 Encounter Details Date Type Department Care Team ([facility] st Contact Info) Description 08/18/2022 Telephone [facility] MEDICINE [address] [place] [address] Melissa Diaz FNP [address] [place] [address] Referral Social History Tobacco Use Types Packs/Day [...] referral for Gynecology to be sent to [facility] at [address] [place] [address] If any questions please contact pt at [phone] Scottish Speaker documented in this encounter Plan of Treatment Upcoming Encounters Date Type Department Care Team (Late st Contact Info) Description 08/15/2024 1:00 PM EDT Office Visit [facility] ADULT DENTAL [address] [place] [address] Jose Jeanne [address] [place] [address] 08/16/2024 3:30 PM EDT Office Visit [facility] CHC MED & PEDS [address] [place] [address] Melissa Diaz FNP [address] [place] [address] documented as of this encounter Visit Diagnoses Not on filedocumented in this encounter Additional Health Concerns Assessment Noted Time PHQ-9 Depression Total Score: 0 05/03/20 3:54 PM EST documented as of this encounter Care Teams Candy Mixer Relationship Specialty Start Date End Date Melissa Diaz FNP [address] [place] [address] PCP - General Family Medicine 03/04/21 documented as of this encounter
--- OUTSIDE RECORDS SUMMARY | 2024-08-14 17:33 | XMS_ITS | Encounter Summary ---
Author Organization [facility] Address [address] [place] [address] [address] [place] [address] Care Team Providers Care Form Maker Name Role Phone CurtMelissa clarke THANG Primary Care Provider [phone] Reason for Visit * Reason Onset Date Comments Appointment 02/06/2023 Encounter Details Date Type Department Care Team (Late st Contact Info) Description 02/06/2023 Telephone [facility] ADULT DENTAL [address] [place] [address] Jose, Jeanne [address] [place] [address] Appointment Social History Tobacco Use Types Packs/Day [...] [facility] ADULT DENTAL [address] [place] [address] Chato Garciaaris [address] [place] [address] 08/16/2024 3:30 PM EDT Office Visit [facility] CHC MED & PEDS [address] [place] [address] Melissa Diaz FNP [address] [place] [address] documented as of this encounter Visit Diagnoses Not on filedocumented in this encounter Additional Health Concerns Assessment Noted Time PHQ-9 Depression Total Score: 0 05/03/20 3:54 PM EST documented as of this encounter Care Teams Form Maker Relationship Specialty Start Date End Date Melissa Diaz FNP [address] [place] [address] PCP - General Family Medicine 03/04/21 documented as of this encounter
== END 2024-08-14 15:45 | disposition home or self-care (01) ==
LOC: HO.HOS 15:08
PROVIDERS: PCP Registered Nurse; Visit Provider Orthopaedic Surgery
DX: M67.431 Ganglion, right wrist (principal)
CPT/HCPCS: 99214

== ENCOUNTER → 2024-08-14 15:08 | Outpatient (BNVA) | payer MEDICAID, SELFPAY | PROVIDERS: PCP Registered Nurse; Visit Provider Orthopaedic Surgery | DX: M67.431 Ganglion, right wrist (principal) | CPT/HCPCS: 99212 ==

== ENCOUNTER 2024-08-20 16:51 | Outpatient (RCR) | payer MEDICAID, SELFPAY ==
[2024-08-20 16:50] VITALS: BP 155/72; PULSE 68
--- NOTE | 2024-08-20 18:13 | MHC.PT.EP ---
[facility] [place] Office [place] Office [place] Office [address] Opal Hernandez [address] [phone] F: [phone] F: [phone] F: [phone] F: [phone] Physical Therapy Plan of Care Date of Evaluation: 08/20/24 Date of Surgery: Diagnosis: Benign paroxysmal positional vertigo due to bilateral vestibular disorder Assessment: Pt is a pleasant and motivated 34yo F who presents to PT with dizziness. Upon assessment, pt tested negative for [place] Hallpike B and tested negative for roll test B. She has increased dizziness with oculomotor testing including smooth pursuit and saccades. Upon assessment she had decreased balance. Overall, her signs and symptoms may be consistent with vestibular hypofunction. She is an excellent candidate for skilled PT in order to address current impairments to facilitate return to OF. She is recommended to be seen 2x/week for 4 weeks and will be reassessed at that time Frequency and Duration: The patient will be seen 2x/week for 4 weeks Short Term Goals: Pt will be I with HEP to promote self management of symptoms Pt will perform bed mobility without dizziness or instability Fci Goals: Pt will ambulate > 200' with intermittent head turns without dizziness or instability Pt will ascend/descend 1 flight of stairs without dizziness or instabiltiy Treatment Plan: Modalities to reduce pain, spasms and effusion. Manual therapy to restore motion and function. Therapeutic exercise to improve strength and flexibility. Neuromuscular re-education for posture and balance. Therapeutic activities to return to functional activities of daily living. Electronically signed by: Anita Bañuelos, PT, DPT Please sign and return to therapist. Thank you for your referral.
--- NOTE | 2025-03-17 09:41 | MHC.PT.DC ---
[facility] [place] Office [place] Office [place] Office [address] Ector Hernandez [address] [phone] F: [phone] F: [phone] F: [phone] F: [phone] Physical Therapy Discharge Report Diagnosis: Benign paroxysmal positional vertigo due to bilateral vestibular disorder Date of Surgery: Date of Evaluation: 08/20/24 Date of Discharge: 03/17/25 Treatments to Date: 1 Cancellations to Date: No Shows to Date: 2 Discharge Status: Visit Non-compliance Discharge Summary: Pt attended initial PT evaluation on 08/20/24. She had 2 scheduled treatments which she no showed. She is being D/C from skilled PT per [facility] attendance policy and visit non compliance. Pt current level of function unknown at this time Electronically signed by: Anita Acosta, PT, DPT Please sign and return to therapist. Thank you for your referral.
== END 2025-03-17 09:41 | disposition home or self-care (01) ==
LOC: HO.PT 16:51
PROVIDERS: PCP Registered Nurse; Visit Provider Registered Nurse
DX: H81.13 Benign paroxysmal vertigo, bilateral (principal)
CPT/HCPCS: 97161

== ENCOUNTER 2025-02-06 12:11 | Outpatient (REF) | payer MEDICAID, SELFPAY ==
--- OUTSIDE RECORDS SUMMARY | 2025-02-06 17:08 | XMS_ITS | Encounter Summary ---
Author Organization [employer] [facility] Address [address] [place] [address] 7 [place] [address] Care Team Providers Care Paving Foreman Name Role Phone Melissa Diaz Primary Care Provider Encounter Details Date Type Department Care Team ([facility] st Contact Info) Description 04/29/2022 Orders Only [facility] MEDICINE [address] [place], [place] [phone] Rebecca Camacho, RN Social History Tobacco Use Types Packs/Day Years [...] as of this encounter Plan of Treatment Not on file documented as of this encounter Visit Diagnoses Not on filedocumented in this encounter Care Teams Paving Foreman Relationship Specialty Start Date End Date Melissa Diaz FNP [address] [place] [address] PCP - General Family Medicine 03/04/21 documented as of this encounter
--- OUTSIDE RECORDS SUMMARY | 2025-02-06 17:08 | XMS_ITS | Encounter Summary ---
Author Organization [employer] Address [address] [place] [address] Care Team Providers Care Head Filter Press Tender Name Role Phone Melissa Diaz Primary Care Provider [phone] Reason for Visit * Reason Onset Date Comments Referral 08/18/2022 Encounter Details Date Type Department Care Team ([facility] st Contact Info) Description 08/18/2022 Telephone [facility] MEDICINE [address] [place] [address] Melissa Diaz FNP [address] [place] [address] Referral Social History Tobacco Use Types Packs/Day [...] referral for Gynecology to be sent to [facility] at [address] [place] [address] If any questions please contact pt at [phone] 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
--- OUTSIDE RECORDS SUMMARY | 2025-02-06 17:08 | XMS_ITS | Encounter Summary ---
Author Organization [employer] Address [address] [place] [address] 7 [place] [address] Care Team Providers Care Junior Graphic Designer Name Role Phone Melissa Diaz Primary Care Provider [phone] Encounter Details Date Type Department Care Team (Latest Contact Info) Description 02/03/2021 Abstract [facility] Dental, Provider, DDS Social History Tobacco [...] on filedocumented in this encounter Care Teams Junior Graphic Designer Relationship Specialty Start Date End Date Melissa Diaz FNP [address] [place] [address] PCP - General Family Medicine 03/04/21 documented as of this encounter
--- OUTSIDE RECORDS SUMMARY | 2025-02-06 17:08 | XMS_ITS | Encounter Summary ---
Author Organization [employer] Address [address] [place] [address] 7 [place] [address] Care Team Providers Care Pack Changer Name Role Phone Melissa Diaz Primary Care Provider [phone] Reason for Visit * Reason Onset Date Comments Lab Orders 02/05/2025 Encounter Details Date Type Department Care Team ([facility] st Contact Info) Description 02/05/2025 Telephone [facility] MEDICINE [address] [place] [address] Melissa Diaz FNP [address] [place] [address] Lab Orders Social History Tobacco Use Types Packs/Day Years [...] as of this encounter Miscellaneous Notes * Addendum Note - Reggie Michael RN - 02/05/2025 4:04 PM EDTAddended by: REGGIE MICHAEL on: 02/05/2025 04:04 PM Modules accepted: Orders * Telephone Encounter - Reggie Michael RN - 02/05/2025 4:03 PM EDT Return call placed to the pt who confirmed that she has applied to several [employer] companies who require a updated TB blood test before hiring. The pt was advised that an order for this blood test has been entered into the pt chart and can be drawn at [facility] or [facility]. The pt was agreeable and stated understanding. * Telephone Encounter - Ole Vasquez - 02/05/2025 10:59 AM EDT Patient walked in requesting a lab order to test for Tuberculosis. Patient needs it for work. documented in this encounter Plan of Treatment Scheduled Orders Name Type Priority Associated Diagnoses Orde r Schedule T-SPOT .TB Lab Routine Encounter for occupational health assessment Expected: 02/05/2025 (Approximate), Expires: 02/05/2026 documented as of this encounter Visit Diagnoses Diagnosis Encounter for occupational health assessment documented in this encounter Additional Health Concerns Assessment Noted Time PHQ-9 Depression Total Score: 3 10/02/19 24 1:29 PM EDT documented as of this encounter Care Teams Pack Changer Relationship Specialty Start Date End Date Melissa Diaz FNP [address] [place] [address] PCP - General Family Medicine 03/04/21 documented as of this encounter
--- OUTSIDE RECORDS SUMMARY | 2025-02-06 17:08 | XMS_ITS | Encounter Summary ---
Author Organization [employer] Address [address] [place] [address] [address], [place] [address] Care Team Providers Care Vice President Payer Name Role Phone CurtMelissa clarke THANG Primary Care Provider [phone] Reason for Visit * Reason Onset Date Comments Appointment 02/06/2023 Encounter Details Date Type Department Care Team (Late st Contact Info) Description 02/06/2023 Telephone [facility] ADULT DENTAL [address] [place] [address] Jose, Jeanne [address] [place] [address] Appointment Social History Tobacco Use Types Packs/Day [...] Time PHQ-9 Depression Total Score: 0 05/03/20 22 3:54 PM EST documented as of this encounter Care Teams Vice President Payer Relationship Specialty Start Date End Date Melissa Diaz FNP [address] [place] [address] PCP - General Family Medicine 03/04/21 documented as of this encounter
--- OUTSIDE RECORDS SUMMARY | 2025-02-06 17:08 | XMS_ITS | Clinical Summary ---
Author Organization [employer] Address [address] [facility] [address] [place] [address] Care Team Providers Care Car Body Designer Name Role Phone CurtMelissa clarke THANG Primary Care Provider [phone] Allergies No known active allergies Medications Blood Pressure kitIndications:Alma Delia vated blood pressure reading Use to check blood pressure 3-4 times per week 1 kit 4 Active albuterol 108 (90 Base) MCG/ACT inhalerIndications :Mild intermittent asthma without complication Inhale 2 puffs every 6 (six) hours if needed for wheezing or shortness of breath. 18 g 3 4 Active cholecalciferol (Vitamin D-3) 25 MCG (1000 [...] 6:05 PM EST): Surgery completed 2022 by [facility] Ortho Michael Paz Referral to reestablish with Ortho June 2024 Assessment & Plan (10/03/2023 9:52 AM EDT): Surgery completed 2022 by [facility] Jessica Paz Normal oral exam 10/02/2023 Overview (10/03/2023): Pap: NILM, HPV neg on 08/25/21 Last PE: 10/02/23 Dental: UTD Endometrial polyp 10/02/2023 Overview (10/02/2023): Noted on May 2022 - 4mm endometrial polyp Followed by Corry BENAVIDEZ H/O lumbar discectomy 05/03/2022 Overview (10/02/2023): L4/5 discectomy for left lumbar radiculopathy on 11/24/20 ([facility]) Assessment & Plan (10/03/2023 9:51 AM EDT): Continues with chronic low back pain, will check XR Plan for referral to [facility] Pain Management pending results Headache 09/22/2021 Assessment & Plan (10/03/2023 9:51 AM EDT): Continues with APAP and ibuprofen PRN Loss of hair 09/22/2021 Assessment & Plan (10/03/2023 9:51 AM EDT): Previous tx with topical Mindoxidil Check TSH and Vit D Referral to re-establish with Derm team Encounters Date Type Department Care Team Description 02/05/[address] [facility] MEDICINE [address] [place] [address] Melissa Diaz FNP Lab Orders from Last 3 Months Immunizations Immunization Administration Dates Next Due Hep B, adult [...] 71 07/12/2024 10:39 AM EST Temperature 36.1 C (97 F) 07/12/2024 10:39 AM EST Respiratory Rate 18 07/12/2024 10:3 9 AM EST Oxygen Saturation 99% 07/12/2024 10: 39 AM EST Inhaled Oxygen Concentration - - Weight 132 kg (290 lb) 07/12/2024 10:39 AM EST Height 165.1 cm (5' 5 ) 07/12/2024 10:3 9 AM EST Body Mass Index 48.26 07/12/2024 10:39 AM EST Plan of Treatment Health Maintenance Due Date Last Done Comments Disability Screening 1989 Alcohol/Substance Use Screening 2001 Family Planning (PISQ) 2004 HPV Vaccines (1 - 3-dose series) 2004 Dental X-Ray: Full Mouth 02/05/2024 02/03/2021, 0701/2018 Dental Oral Exam 04/19/2024 10/18/2023, , 11/20/2017, Additional history exists Dental Prophylaxis 04/19/2024 10/18/2023, 0 02/03/2021, 11/20/2017, Additional history exists Depression Screening 10/01/2024 10/02/2023, 10/02/19 Dental X-Ray: Bitewings 10/18/2024 10/18/19 24, 02/03/2021, 11/20/2017 COVID-19 Vaccine ( season) 2025 07/23/2021, 09/30/2020, 09/02/2020 Influenza Vaccine (#1) 2025 , 05/17/2019, 02/01/2017 Diabetes: Hemoglobin A1C 07/12/2025 025, 04/18/2024, 10/19/2023, Additional history exists SDOH Screening 07/12/2025 07/12/2024 Tobacco Screening 07/12/2025 07/12/2024 Cervical Cancer Screening 08/27/2026 HPV/Cotest 08/27/2026 08/27/2021 Pap Smear 08/27/2026 08/27/2021 DTaP/Tdap/Td Vaccines (3 - Td [...] Years) and At-Risk Patients (6 to 49) Years Completed 07/12/2024 HIB Vaccines Aged Out No longer eligi ble based on patient's age to complete this topic Hepatitis A Vaccines Aged Out No long er eligible based on patient's age to complete this topic IPV Vaccines Aged Out No longer eligi ble based on patient's age to complete this topic Meningococcal B Vaccine Aged Out No l onger eligible based on patient's age to complete [...] Procedure Name Priority Date/Time Associated Diagnosis Comments HEPATITIS C VIRAL RNA, QUANTITATIVE, REAL-TIME PCR Routine 07/12/2024 11:32 AM EST Healthcare maintenance HIV 1/2 ANTIGEN/ANTIBODY, FOURTH GENERATION W/RFL Routine 07/12/2024 11:32 AM EST Other fatigue HEMOGLOBIN A1C Routine 07/12/2024 11:32 AM EST Healthcare maintenance LIPID PANEL, STANDARD Routine 07/12/2024 11:32 AM EST Healthcare maintenance Full PROPHYLAXIS - ADULT Routine 10/18/2023 3:00 [...] Recently Relevant to Health Maintenance Results * Hepatitis C Viral RNA, Quantitative, Real-Time PCR (07/12/2024 11:32 AM EST) Hepatitis C Viral Load <15 NOT DETECTED NOT DETECTED IU/mL [facility] HCV Log PCR <1.18 NOT DETECTED NOT DETECTED Log IU/mL [facility] Comment:For additional infor ananth, please refer tohttp://education.Ohlalapps/faq/XQG24w9(This link is being provided for informational/educational purposes only.)THIS TEST WAS PERFORMED AT:[email or web address] [place] [id number] OLMEDO MD Blood 07/12/2024 11:3 2 AM EST 07/12/2024 2:33 PM EST Melissa Diaz [facility] BLOOD ORDERABLES Final Res ult Performing Organization Address City/[facility]/ZIP Co de Phone Number [facility] [address] [place] [address] [phone] * HIV-1/2 Antigen and Antibodies, Fourth Generation, with Reflexes (07/12/2024 11:32 AM EST) HIV AB/AG Nonreactive Nonreactive [facility] Comment:HIV-1 p24 Ag and/or HIV-1/HIV-2 Ab not detected.A test result that is nonreactive does not exclude thepossibility of exposure to or infection with HIV-1 and/orHIV-2. Nonreactive results in this assay for individualswith prior exposure to HIV-1 and/or HIV-2 may be due toantigen and antibody levels that are below the limit ofdetection of this assay.The [employer] HIV Ag/Ab Combo assay result andsupplemental assay results should be interpreted inconjunction with the patient's clinical presentation,history and other laboratory results. If the results areinconsistent with clinical evidence, additional testing issuggested to confirm the result. Blood Venous blood specimen / Unknown 07/12/2024 11:32 AM EST 07/12/2024 2:33 PM EST Melissa Diaz [facility] BLOOD ORDERABLES Final Res ult Performing Organization Address [facility]/ZIP Co de Phone Number [facility] [address] [place] [address] [phone] * Hemoglobin A1c (07/12/2024 11:32 AM EST) Hemoglobin A1c 5.8 <6.0 % [facility] Comment:Hemoglobin A1C Refer ence Range Adults: 4.8 - 6.0 % Non diabetic: < 6.0 % Goal: < 7.0 %Additional Action Suggested: > 8.0 %Note: Hemoglobin A1c results are invalid for patients with abnormal amounts of HbF. Blood transfusions may impact the HbA1c concentration in the patient sample. Estimated Average Glucose 120 mg/dL [facility] Comment:eAG = Estimated ave rage glucose which is %A1C expressed asaverage glucose, using the formula of the I1C-YhfnghgYziobjl Glucose study (ADAG), Diabetes Care, Vol.31,#8,Dec. 2007 Blood Venous blood specimen / Unknown 07/12/2024 11:32 AM EST 07/12/2024 2:39 PM EST Melissa Diaz [facility] BLOOD ORDERABLES Final Res ult Performing Organization Address [facility] Co de Phone Number [facility] [address] [place] [phone] * (ABNORMAL) Lipid Panel, Standard (07/12/2024 11:32 AM EST) Triglycerides 91 <150 mg/dL [facility] Comment:Desirable Triglyceri de: less than 150 mg/dLBorderline High Triglyceride 150-199 mg/dLHigh Triglyceride: 200-499 mg/dLVery High Triglyceride: greater than or equal to 5OO mg/dL Cholesterol 199 <200 mg/dL [facility] Comment:Desirable Cholestero l: less than 200 mg/dLBorderline High Cholesterol: 200-239 mg/dLHigh Cholesterol: greater than 239 mg/dL LDL Cholesterol Calculated 135(H) <100 mg/dL [facility] Comment:Desirable LDL: less than 100 mg/dLNear Optimal/Above Optimal LDL: 110- 129 mg/dLBorderline High LDL: 130-159 mg/dLHigh LDL: 160-189 mg/dLVery High LDL: greater than or equal to 190 mg/dL HDL Cholesterol 46 >40 mg/dL [facility] Comment:Desirable HDL: great er than 40 mg/dL Note: This HDL assay may give artificially low results in patients with liver disease. Blood Venous blood specimen / Unknown 07/12/2024 11:32 AM EST 07/12/2024 2:33 PM EST us Melissa Diaz [facility] BLOOD ORDERABLES Final Res ult Performing Organization Address [facility]/ZIP Co de Phone Number [facility] [address] [place] [phone] * THINPREP TIS PAP AND HPV mRNA E6/E7 WITH REFLEX TO HPV 16,18/45 (08/27/2021 3:56 PM EDT) Clinical Information: None given [facility] COMMENT SEE COMMENT [facility] Comment: EXPLANATORY NOTE: The Pap is a screening test for cervical cancer. It is not a diagnostic test and is subject to false negative and false positive results. It is most reliable when a satisfactory sample, regularly obtained, is submitted with relevant clinical findings and history, and when the Pap result is evaluated along with historic and current clinical information. COMMENT: This Pap test has been evaluated with computer assisted technology. [facility] Supply Chain Buyer: SEE COMMENT [facility] Comment: RK CT(ASCP) CT screening location: [place] [address] HPV nRNA E6/E7 Not Detected Not Detected [facility] Comment: Methodology: Upholstery Repairer-Mediated Amplification This assay detects E6/E7 viral messenger RNA (mRNA) from 14 high-risk HPV types (16,18,31,33,35,39,45,51,52,56,58,59,66,68). The analytical performance characteristics of this assay have been determined by [employer]. The modifications have not been cleared or approved by the FDA. This assay has been validated pursuant to the CLIA regulations and is used for clinical purposes. For additional information, please refer to http://education.Ohlalapps/faq/VSJ443g4 (This link if provided for information/ educational purposes only.) NO COLLECTION DATE RECEIVED. WE HAVE USED THE DATE THE SPECIMEN WAS RECEIVED BY THIS LABORATORY THE COLLECTION DATE. IF THIS IS INCORRECT, PLEASE CONTACT CLIENT SERVICES. PHONE NUMBER: Infection Shift in vaginal stephane suggestive of bacterial vaginosis. [facility] Interpretation/Re sult: Negative for intraepithelial lesion or malignancy. [facility] LMP: NONE [facility] Prev. BX: NONE [facility] Prev. PAP: NONE [facility] SOURCE: None given [facility] Statement Of Adequacy: SEE COMMENT [facility] Comment: Satisfactory for evaluation. Endocervical/transformation zone component present. Age and/or menstrual status not provided 08/27/2021 3:56 PM EDT Melissa Diaz [facility] PATHOLOGY ORDERABLES Final Result [facility] [address] [place] [address], from Last 3 Months or Most Recently Relevant to Health Maintenance Insurance [facility] C[facility] DENTAL-[facility] MEDICAID STAND ADULT Care Teams Car Body Designer Relationship Specialty Start Date End Date Melissa Diaz FNP [address] [place] [phone] PCP - General Family Medicine 03/04/21
[2025-02-09 20:39] LABS: TS Negative Control Passed; TS Panel A 1; TS Panel B 1; TS Positive Control Passed; TSpotTB Negative (Negative)
== END 2025-02-06 12:12 | disposition home or self-care (01) ==
LOC: HO.LAB 12:11
PROVIDERS: PCP Registered Nurse; Visit Provider Registered Nurse
DX: Z02.89 Encounter for other administrative examinations (principal); Z11.1 Encounter for screening for respiratory tuberculosis
CPT/HCPCS: 36415; 86481

== ENCOUNTER 2025-03-31 11:44 | Outpatient (REF) | payer MEDICAID, SELFPAY ==
[2025-03-31 14:53] LABS: Cholesterol 203 mg/dL (<200); HDL Cholesterol 44 mg/dL (>40); Triglycerides 176 mg/dL (<150)
== END 2025-03-31 11:45 | disposition home or self-care (01) ==
LOC: HO.CHCLDS 11:44
PROVIDERS: Visit Provider Registered Nurse
DX: Z68.41 Body mass index [BMI] 40.0-44.9, adult (principal)
CPT/HCPCS: 36415; 80061; 83036

== ENCOUNTER 2025-05-02 10:52 | Outpatient (REF) | payer MEDICAID, SELFPAY ==
--- OUTSIDE RECORDS SUMMARY | 2025-05-02 09:30 | XMS_ITS | Encounter Summary ---
Author Organization [employer] Address [address] [place] [id number] Care Team Providers Care Lift Truck Operator Name Role Phone Melissa Diaz Primary Care Provider [phone] Reason for Referral * Consultation (Routine) - Pending Review Specialty Diagnoses / Procedures Referred By Clemente t Referred To Contact Pain Medicine Diagnoses H/O lumbar discectomy Melissa Diaz FNP [address] [place] [address] Phone: tel: fax: [facility] Referral ID Status Reason Start Date Expiration Date Visits Requested Visits Authorized [id number] Pending Review Specialty Services Required 05/02/2026 1 1 Reason for Visit * Reason Comments Annual Exam Encounter Details Date Type Department Care Team ([facility] st Contact Info) Description 05/02/2025 9:30 AM EST Office Visit [facility] [address] [place] [address] Melissa Diaz FNP [address] [place] [address] Healthcare maintenance (Primary Dx); H/O lumbar discectomy Social History Tobacco Use Types Packs/Day Years Used Date Smoking Tobacco: Never Smokeless Tobacco: Never Tobacco Cessation:Counseling Given: Not Answered Alcohol Answer Date Recorded Frequency of Alcohol Consumption Not on file 10/02/2023 Average Number of Drinks Not on file 024 Frequency of Binge Drinking Not on file 09/13 Score 0 10/02/2023 Depression Answer Date Recorded Patient Health Questionnaire-9 Score 5 03/31/2025 Patient Health Questionnaire-9 Score 5 03/31/2025 Last PHQ-9: Questionnaire Data Not on file 1 05/31/2024 Housing Stability Answer Date Recorded What is [...] Date Recorded Patient Health Questionnaire-2 Score 2 03/31/2025 Internet Access Answer Date Recorded Internet Access [...] Sign Reading Time Taken Comments Blood Pressure 137/78 05/02/2025 9:48 AM EST Pulse 77 05/02/2025 9:48 AM EST Temperature 36.6 C (97.8 F) 05/02/2025 9:48 AM EST Respiratory Rate 18 05/02/2025 9:48 AM EST Oxygen Saturation - - Inhaled Oxygen Concentration - - Weight 130 kg (286 lb) 05/02/2025 9:48 AM EST Height 165.7 cm (5' 5.25 ) 05/02/2025 9:48 AM ES T Body Mass Index 47.23 05/02/2025 9:48 AM EST documented in this encounter Plan of Treatment Scheduled Orders Name Type Priority Associated Diagnoses Orde r Schedule Chlamydia/N. Gonorrhoeae RNA, TMA, Urogenitial Microbiology Routine Healthcare maintenance Ordered: 05/02/2025 Bacterial Vaginosis Microbiology Routine Healthcare maintenance Ordered: 05/02/2025 Vitamin D, 25-Hydroxy, Total, Immunoassay Lab Routine Healthcare maintenance Expected: 05/02/2025 (Approximate), Expires: 05/02/2026 TSH with Reflex to Free T4 Lab Routine Healthcare maintenance Expected: 05/02/2025 (Approximate), Expires: 05/02/2026 Comprehensive Metabolic Panel Lab Routine Healthcare maintenance Expected: 05/02/2025 (Approximate), Expires: 05/02/2026 CBC auto differential Lab Routine Healthcare maintenance Expected: 05/02/2025, Expires: 05/02/2026 HIV-1/2 Antigen and Antibodies, Fourth Generation, with Reflexes Lab Routine Healthcare maintenance Expected: 05/02/2025 (Approximate), Expires: 05/02/2026 RPR (Monitor) with Reflex to Titer Lab Routine Healthcare maintenance Expected: 05/02/2025, Expires: 05/02/2026 Hepatitis C Antibody with Reflex to HCV, RNA, Quantitative, Real-Time PCR Lab Routine Healthcare maintenance Expected: 05/02/2025, Expires: 05/02/2026 Ferritin Lab Routine Healthcare maintenance Expected: 05/02/2025, Expires: 05/02/2026 Scheduled Referrals Name Type Priority Associated Diagnoses Orde r Schedule Referral to Pain Medicine Outpatient Referral Routine H/O lumbar discectomy Expected: 05/02/2025 (Approximate), Expires: 05/02/2026 documented as of this encounter Visit Diagnoses Diagnosis Healthcare maintenance- Primary H/O lumbar discectomy documented in this encounter Additional Health Concerns Assessment Noted Time PHQ-9 Depression Total Score: 5 03/31/20 25 11:10 AM EST documented as of this encounter Care Teams Lift Truck Operator Relationship Specialty Start Date End Date Melissa Diaz FNP [address] [place] [phone] PCP - General Family Medicine 03/04/21 documented as of this encounter
--- OUTSIDE RECORDS SUMMARY | 2025-05-02 12:42 | XMS_ITS | Clinical Summary ---
Author Organization [employer] Address [address] [facility] [address] [place] [address] Care Team Providers Care Machine Finisher Name Role Phone CurtMelissa clarke THANG Primary Care Provider [phone] Allergies No known active allergies Medications Blood Pressure kitIndications:El evated blood pressure reading Use to check blood pressure 3-4 times per week 1 kit 4 Active cholecalciferol (Vitamin D-3) 25 MCG (1000 UT) tabletIndications :Vitamin D insufficiency Take 1 tablet (25 mcg) by mouth Once per day. 90 tablet 1 4 Active albuterol 108 (90 Base) MCG/ACT inhalerIndication s:Mild intermittent asthma without complication Inhale 2 puffs every 6 (six) hours if needed for wheezing or shortness of breath. 18 g 3 5 03/07/20 26 Active loratadine (Claritin) 10 MG tablet TOME 1 TABLETA POR V A ORAL TODOS LOS D POR 7 D 5 Active multivitamin () 27-0.8 MG tablet Take 1 tablet by mouth Once per day. 5 Active nitrofurantoin, macrocrystal-mono hydrate, (Macrobid) 100 MG capsule Take 1 capsule (100 mg) by mouth 2 times daily for 5 days. 10 capsule 5 04/21/20 25 Active Problems Problem Noted Date Diagnosed Date Class 3 obesity (CMS/HCC) 03/31/2025 Assessment & Plan (03/31/2025 1:21 PM EST): - Repeat labs - Likely [place] [facility] [place] Management pending lab results Prediabetes 04/18/2024 Assessment & Plan (04/18/2024 4:00 PM EST): A1c is 5.9, patient had gestational DM. I have discussed with patient regarding increasing physicial activity and decrease calorie intake, advised weight redcution FU with PCP Mild intermittent asthma without complication Overview (10/03/2023): -Cont albuterol PRN Assessment & Plan (03/07/2025 9:36 AM EDT): Albuterol reordered. Orders: albuterol 108 (90 Base) MCG/ACT inhaler; Inhale 2 puffs every 6 (six) hours if needed for wheezing or shortness of breath. Seasonal allergies 10/02/2023 Ganglion cyst of dorsum of right wrist Assessment & Plan (07/13/2024 6:05 PM EST): [place] 20[place] [facility] [place] Paz Referral to reestablish with Ortho June 2024 Assessment & Plan (10/03/2023 9:52 AM EDT): Surgery completed 2022 by [facility] [place] Paz Healthcare maintenance 10/02/2023 Overview (10/03/2023): Pap: NILM, HPV neg on 08/25/21 Last PE: 10/02/23 Dental: UTD Endometrial polyp 10/02/2023 Overview (10/02/2023): Noted on May 2022 - 4mm endometrial polyp Followed by Corry BENAVIDEZ H/O lumbar discectomy 05/03/2022 Overview (10/02/2023): L4/5 discectomy for left lumbar radiculopathy on 11/24/20 ([facility]) Assessment & Plan (10/03/2023 9:51 AM EDT): Continues with chronic low back pain, will check XR Plan for referral to [facility] Pain Management pending results Headache 09/22/2021 Assessment & Plan (10/03/2023 9:51 AM EDT): Continues with APAP and ibuprofen PRN Loss of hair 09/22/2021 Assessment & Plan (10/03/2023 9:51 AM EDT): Previous tx with topical Mindoxidil Check TSH and Vit D Referral to re-establish with Derm team Resolved Problems Problem Noted Date Diagnosed Date Resolved Date Acute cough 03/07/2025 03/26/2025 Assessment & Plan (03/07/2025 9:36 AM EDT): Mild erythema pharynx; no tonsillar inflammation. TM / Canals normal. Orders: POCT Rapid Covid-19 HOLDER ID NOW POCT Rapid Influenza A HOLDER ID NOW POCT Rapid Influenza B HOLDER ID NOW benzonatate (Tessalon Perles) 100 MG capsule; Take 1 capsule (100 mg) by mouth if needed in the morning, at noon, and at bedtime for cough for up to 7 days. Do not crush or chew. Grief associated with loss of fetus 03/07/2025 03/26/2025 Assessment & Plan (03/07/2025 10:02 AM EDT): We discussed grief management; she did not want to see at this time; she has contact with [facility]. Emphasized that pt could contact us at anytime to be connected with . Exercise counseling 03/07/2025 03/26/20 25 Overview (03/07/2025): Pt has upcoming visit with regular PCP and will discuss diet / exercise / weight management. Assessment & Plan (03/07/2025 10:02 AM EDT): Pt has upcoming visit with regular PCP and will discuss diet / exercise / weight management. Assessment & Plan (03/07/2025 9:59 AM EDT): Pt has an upcoming appointment and will discuss weight management. Pt mentions she recently had a baby and gained weight during . Amenorrhea 04/18/2024 03/26/2025 Assessment & Plan (04/18/2024 4:00 PM EST): ?Anovulatory cycle? PCOS? Patient's A1c is on PreDM levels, she had gestational DM so some of the metabolic changes can be reponsisble for amenorrhea, will RO Order serum hcg and vaginal swab, will call back prn abn results. Pelvic pain 04/18/2024 03/26/2025 Assessment & Plan (04/18/2024 3:58 PM EST): Unclear if she has ovarian cyst (?anovulatory cycle? Endometrial lesions or vaginitis? Order labs and pelvic US and fu with PCP Encounters Date Type Department Care Team Description 05/02/2025 9:30 AM EST Office Visit [facility] [address] [place] [phone] Melissa Diaz FNP Healthcare maintenance (Primary Dx); H/O lumbar discectomy 05/02/2025 Travel 04/25/2025 Patient Outreach [facility] [address] [place] [address] Melissa Diaz FNP Pre-visit Planning (SDOH completed ) 04/16/2025 3:00 PM EST Office Visit [facility] [address] [place] [address] Blossom Garay MD Urinary tract infection without hematuria, site unspecified (Primary Dx) 04/16/2025 Travel 04/01/2025 Results Follow-Up [facility] [address] [place] [address] Melissa Diaz FNP Hemoglobin A1c, Lipid Panel, Standard 03/31/2025 11:00 AM EST Office Visit [facility] [address] [place] [address] Melissa Diaz FNP Class 3 obesity (CMS/HCC) (HCC) (Primary Dx); BMI 40.0-44.9, adult (CMS/HCC) (HCC); Grief associated with loss of fetus 03/31/2025 Travel 03/25/[address] [address] Melissa Diaz FNP Insurance 03/25/[address] [address] Melissa Diaz FNP chart prep 03/25/2025 Travel 03/18/2025 Patient Outreach [address] [address] Melissa Diaz FNP Pre-visit Planning (SDOH screening was completed on 07/12/2024) 03/07/2025 9:15 AM EDT Office Visit [address] [address] Merle Duarte MD Acute cough (Primary Dx); Mild intermittent asthma without complication; Dietary counseling; Exercise counseling; Grief associated with loss of fetus 03/07/2025 Travel 02/13/2025 Results Follow-Up [facility] [address] [place], [place] [phone] Melissa Diaz FNP T-SPOT .TB 02/05/[address] [address] Melissa Diaz FNP Lab Orders from Last 3 Months Immunizations Immunization Administration Dates Next Due Hep B, adult 03/17/2021,11/05/2019,06/07/2019 Influenza Injectable Quadriv alant Preservative Free IIV4 MDCK 02/01/2017 Influenza injectable quadriv alent preservative free 03/17/2021,05/17/2019 [...] 18 05/02/2025 9:48 AM EST Oxygen Saturation 99% 03/07/2025 9:13 AM EDT Inhaled Oxygen Concentration - - Weight 130 kg (286 lb) 05/02/2025 9:48 AM EST Height 165.7 cm (5' 5.25 ) 05/02/2025 9:48 AM ES T Body Mass Index 47.23 05/02/2025 9:48 AM EST Plan of Treatment Health Maintenance Due Date Last Done Comments Family Planning (PISQ) 2004 HPV Vaccines (1 - 3-dose series) 2004 Dental X-Ray: Full Mouth 02/05/2024 02/03/2021, 07/01/2018 Dental Oral Exam 04/19/2024 10/18/2023, , 11/20/2017, Additional history exists Dental Prophylaxis 04/19/2024 10/18/2023, 0 02/03/2021, 11/20/2017, Additional history exists Dental X-Ray: Bitewings 10/18/2024 10/18/19 24, 02/03/2021, 11/20/2017 SDOH Screening 07/12/2025 07/12/2024 Influenza Vaccine (#1) 2025 , 05/17/2019, 02/01/2017 Postponed from 01/13/2025 (Patient Refused) Disability Screening 03/25/2026 03/25/2025 COVID-19 Vaccine ( season) 2026 07/23/2021, 09/30/2020, 09/02/2020 Postponed from 01/13/2025 (Patient Refused) Depression Screening 03/31/2026 03/31/2025, 03/31/20 25 Diabetes: Hemoglobin A1C 03/31/2026 025, 07/12/2024, 04/18/2024, Additional history exists Alcohol/Substance Use Screening 05/02/2026 05/02/2025 Tobacco Screening 05/02/2026 05/02/2025 Cervical Cancer Screening 08/27/2026 HPV/Cotest 08/27/2026 08/27/2021 Pap Smear 08/27/2026 08/27/2021 DTaP/Tdap/Td Vaccines (3 - Td or Tdap) 05/17/2029 05/17/2019, 03/29/2017 Lipid Panel 03/31/2030 03/31/2025, 06/16, 10/19/2023, Additional history exists Zoster Vaccines (1 of 2) 2039 RSV Patients and Patients Aged 60 years or older (1 - 1-dose 75+ series) 2064 Hepatitis B Vaccines Completed 03/17/2021, 11/05/2019, 06/07/2019 HIV Screening Completed 07/12/2024, 10/2023, 11/19/2020, Additional history exists Hepatitis C [...] Procedure Name Priority Date/Time Associated Diagnosis Comments POCT URINALYSIS DIPSTICK Routine 04/16/2025 3:28 PM EST Urinary tract infection without hematuria, site unspecified LIPID PANEL, STANDARD Routine 03/31/2025 11:46 AM EST Class 3 obesity (CMS/HCC) (HCC) BMI 40.0-44.9, adult (CMS/HCC) (HCC) HEMOGLOBIN A1C Routine 03/31/2025 11:46 AM EST Class 3 obesity (CMS/HCC) (HCC) BMI 40.0-44.9, adult (CMS/HCC) (HCC) POCT COVID-19 AG HOLDER ID NOW Routine 03/07/2025 9:29 AM EDT Acute cough POCT INFLUENZA B (ID NOW RAPID MOLECULAR) Routine 03/07/2025 9:28 AM EDT Acute cough POCT INFLUENZA A (ID NOW RAPID MOLECULAR) Routine 03/07/2025 9:25 AM EDT Acute cough T-SPOT(R).TB Routine 02/06/2025 12:38 PM EDT Encounter for occupational health assessment HEPATITIS C VIRAL RNA, QUANTITATIVE, REAL-TIME PCR Routine 07/12/2024 11:32 AM EST Healthcare maintenance HIV 1/2 ANTIGEN/ANTIBODY, FOURTH GENERATION W/RFL Routine 07/12/2024 11:32 AM EST Other fatigue Full PROPHYLAXIS - ADULT Routine 10/18/2023 3:00 [...] Recently Relevant to Health Maintenance Results * POCT Urinalysis (04/16/2025 3:28 PM EST) Color, UA Yellow Clarity, UA Clear Glucose, UA Negative Bilirubin, UA Negative Ketones, UA Negative Spec Grav, UA 1.025 Blood, UA Negative Negative, None Detected pH, UA 5.5 Protein, UA Negative Urobilinogen, UA 0.2 Leukocytes, UA Trace Negative, Rare, Trace, 1+ (17), 2+ (35), 3+ (70), Trace (15) Nitrite, UA Negative Negative, None Detected Appearance, UA clear QC Media Lot # [id number] Lot# Expiration Date [id number] Urine (Urine, Random) 04/16/2025 3:28 PM EST us Blossom Garay MD POINT OF CARE TEST ENTER/EDIT OR DERABLES Final Result * Hemoglobin A1c (03/31/2025 11:46 AM EST) Hemoglobin A1c 5.6 <6.0 % [facility] Comment:Hemoglobin A1C Refer ence Range Adults: 4.8 - 6.0 % Non diabetic: < 6.0 % Goal: < 7.0 %Additional Action Suggested: > 8.0 %Note: Hemoglobin A1c results are invalid for patients with abnormal amounts of HbF. Blood transfusions may impact the HbA1c concentration in the patient sample. Estimated Average Glucose 114 mg/dL [facility] Comment:eAG = Estimated ave rage glucose which is %A1C expressed asaverage glucose, using the formula of the H5X-TledwhqOnawvds Glucose study (ADAG), Diabetes Care, Vol.31,#8,Dec. 2007 Blood Venous blood specimen / Unknown 03/31/2025 11:46 AM EST 03/31/2025 2:04 PM EST us Melissa Diaz LABOR OPERATOR LAB BLOOD ORDERABLES Final Res ult [facility] [address] [place] [phone] * (ABNORMAL) Lipid Panel, Standard (03/31/2025 11:46 AM EST) Triglycerides 176(H) <150 mg/dL [facility] Comment:Desirable Triglyceri de: less than 150 mg/dLBorderline High Triglyceride 150-199 mg/dLHigh Triglyceride: 200-499 mg/dLVery High Triglyceride: greater than or equal to 5OO mg/dL Cholesterol 203(H) <200 mg/dL [facility] Comment:Desirable Cholestero l: less than 200 mg/dLBorderline High Cholesterol: 200-239 mg/dLHigh Cholesterol: greater than 239 mg/dL LDL Cholesterol Calculated 124(H) <100 mg/dL [facility] Comment:Desirable LDL: less than 100 mg/dLNear Optimal/Above Optimal LDL: 110- 129 mg/dLBorderline High LDL: 130-159 mg/dLHigh LDL: 160-189 mg/dLVery High LDL: greater than or equal to 190 mg/dL HDL Cholesterol 44 >40 mg/dL [facility] Comment:Desirable HDL: great er than 40 mg/dL Note: This HDL assay may give artificially low results in patients with liver disease. Blood Venous blood specimen / Unknown 03/31/2025 11:46 AM EST 03/31/2025 2:04 PM EST Melissa Diaz LABOR OPERATOR LAB BLOOD ORDERABLES Final Res ult Performing Organization Address [facility]/ZIP Co de Phone Number [facility] [address] [place] [phone] * POCT Rapid Covid-19 HOLDER ID NOW (03/07/2025 9:29 AM EDT) Coronavirus Antigen PCR Negative Negative, Indeterminate, None Detected, Invalid, Specimen unsatisfactory for evaluation, Weakly Positive, 2+ QC Media Lot # [id number] Lot# Expiration Date [id number] Swab 03/07/2025 9:29 AM EDT Boo Viramontes LABOR OPERATOR POINT OF CARE TEST ENTER/EDIT ORDERABLES Final Result * POCT Rapid Influenza B HOLDER ID NOW (03/07/2025 9:28 AM EDT) Pathologist [facility] Influenza B Negative Negative, Indeterminate [facility] QC Media Lot # [id number] [facility] Lot# Expiration Date [facility] Swab 03/07/2025 9:28 AM EDT Boo Viramontes LABOR OPERATOR POINT OF CARE TEST ENTER/EDIT ORDERABLES Final Result Performing Organization Address [facility]/ZIP Co de Phone Number [facility] [address] [place] [phone] * POCT Rapid Influenza A HOLDER ID NOW (03/07/2025 9:25 AM EDT) Influenza A Negative Negative, Indeterminate [facility] QC Media Lot # [id number] [facility] Lot# Expiration Date [facility] Swab 03/07/2025 9:25 AM EDT Boo Viramontes LABOR OPERATOR POINT OF CARE TEST ENTER/EDIT ORDERABLES Final Result [facility] [address] [place] [address] [phone] * T-SPOT??.TB (02/06/2025 12:38 PM EDT) T Spot TB Negative Negative [facility] Comment:A negative test resu lt does not exclude the possibilityof exposure to or infection with Mycobacteriumtuberculosis (M. tuberculosis). Patients with recentexposure to TB infected individuals exhibiting anegative T-SPOT.TB result should be considered forretesting within 6 weeks or if other relevant clinicalsymptoms indicate. Results from T-SPOT.TB testing mustbe used in conjunction with each individual'sepidemiological history, current medical status,and results of other diagnostic evaluations.The T-SPOT.TB test is qualitative and results arereported as positive, borderline, or negative, giventhat the test controls perform as expected. In linewith the Centers for Disease Control and Prevention's2010 recommendation to report quantitative measurementsalongside the qualitative result, the laboratoryprovides spot counts for informational purposes only.The T-SPOT.TB test should not be interpreted as aquantitative test. TS PANEL A 1 [facility] TS PANEL B 1 [facility] Negative Control Passed [facility] Positive Control Passed [facility] Comment:For additional infor mataguila, please refer tohttp://education.[employer]/faq/UUV627(This link is being provided for informational/educational purposes only.)THIS TEST WAS PERFORMED AT:[employer]/[id number] [place] [address]DBMNPXVCHARISSA GUSTAFSON MD,PHD 02/06/2025 12:3 8 PM EDT 02/06/2025 12:38 PM EDT Melissa Diaz [facility] BLOOD ORDERABLES Final Res ult Performing Organization Address [facility] de Phone Number [facility] [address] [place] [phone] * Hepatitis C Viral RNA, Quantitative, Real-Time PCR (07/12/2024 11:32 AM EST) [facility] Hepatitis C Viral Load <15 NOT DETECTED NOT DETECTED IU/mL [facility] HCV Log PCR <1.18 NOT DETECTED NOT DETECTED Log IU/mL [facility] Comment:For additional infor ananth, please refer tohttp://education.[employer]/faq/KQH78x1(This link is being provided for informational/educational purposes only.)THIS TEST WAS PERFORMED AT:[employer] [address] [id number] OLMEDO MD Blood 07/12/2024 11:3 2 AM EST 07/12/2024 2:33 PM EST Melissa Diaz [facility] BLOOD ORDERABLES Final Res ult Performing Organization Address [facility] de Phone Number [facility] [address] [place] [phone] * HIV-1/2 Antigen and Antibodies, Fourth Generation, with Reflexes (07/12/2024 11:32 AM EST) [facility] HIV AB/AG Nonreactive Nonreactive [facility] Comment:HIV-1 p24 Ag and/or HIV-1/HIV-2 Ab not detected.A test result that is nonreactive does not exclude thepossibility of exposure to or infection with HIV-1 and/orHIV-2. Nonreactive results in this assay for individualswith prior exposure to HIV-1 and/or HIV-2 may be due toantigen and antibody levels that are below the limit ofdetection of this assay.The [employer] HIV Ag/Ab Combo assay result andsupplemental assay results should be interpreted inconjunction with the patient's clinical presentation,history and other laboratory results. If the results areinconsistent with clinical evidence, additional testing issuggested to confirm the result. Blood Venous blood specimen / Unknown 07/12/2024 11:32 AM EST 07/12/2024 2:33 PM EST Melissa Diaz [facility] BLOOD ORDERABLES Final Res ult [facility] [address] [place] [phone] * THINPREP TIS PAP AND HPV mRNA E6/E7 WITH REFLEX TO HPV 16,18/45 (08/27/2021 3:56 PM EDT) Clinical Information: None given [facility] COMMENT SEE COMMENT [facility]OUND[facility] ON [...] along with historic and current clinical information. Comment: This Pap test has been evaluated with computer assisted technology. [facility] Process Control Board Operator: SEE COMMENT [facility] Comment: RK, CT(ASCP) CT screening location: [place] [address] HPV nRNA E6/E7 Not Detected Not Detected [facility] Comment: Methodology: Bed Teacher-Mediated Amplification This assay detects E6/E7 viral messenger RNA (mRNA) from 14 high-risk HPV types (16,18,31,33,35,39,45,51,52,56,58,59,66,68). The analytical performance characteristics of this assay have been determined by [facility]. The modifications have not been cleared or approved by the FDA. This assay has been validated pursuant to the CLIA regulations and is used for clinical purposes. For additional information, please refer to http://education.[employer]/faq/UIF765m7 (This link if provided for information/ educational purposes only.) NO COLLECTION DATE RECEIVED. WE HAVE USED THE DATE THE SPECIMEN WAS RECEIVED BY THIS LABORATORY THE COLLECTION DATE. IF THIS IS INCORRECT, PLEASE CONTACT CLIENT SERVICES. PHONE NUMBER: Infection Shift in vaginal stephane suggestive of bacterial vaginosis. [facility] Interpretation/Re sult: Negative for intraepithelial lesion or malignancy. [facility] LMP: NONE [facility] Prev. BX: NONE [facility] Prev. PAP: NONE [facility]IV[facility] SOURCE: None given [facility] Statement Of Adequacy: [facility] COMMENT [facility] Comment: Satisfactory for evaluation. Endocervical/transformation zone component present. Age and/or menstrual status not provided 08/27/2021 3:56 PM EDT Melissa Diaz [facility] PATHOLOGY ORDERABLES Final Result [facility] [address] from Last 3 Months or Most Recently Relevant to Health Maintenance Insurance [facility] C[place] AD[place] Care Teams Machine Finisher Relationship Specialty Start Date End Date Melissa Diaz FNP [address] [place] [phone] PCP - General Family Medicine 03/04/21
--- OUTSIDE RECORDS SUMMARY | 2025-05-02 12:42 | XMS_ITS | Encounter Summary ---
Author Organization [employer] Address [address] [place] [address] [address] [place] [address] Care Team Providers Care Resident Hall Director Name Role Phone Melissa Diaz Primary Care Provider [phone] Encounter Details Date Type Department Care Team [...] on filedocumented in this encounter Care Teams Resident Hall Director Relationship Specialty Start Date End Date Melissa Diaz FNP [address] [place] [phone] PCP - General Family Medicine 03/04/21 documented as of this encounter
--- OUTSIDE RECORDS SUMMARY | 2025-05-02 12:42 | XMS_ITS | Clinical Summary ---
Author Organization [facility] Address [address] [place] [address] Phone Care Team Providers Care International Sourcing Manager Name Role Phone Jonn Campos MD Primary Care Provider [phone] Allergies No known active allergies Medications PNV no.95/ferrous fum/folic ac ( ORAL) Take 3 Tablets by mouth daily. 06/14/2023 Active cholecalciferol (VITAMIN D-3) 50 mcg (2,000 unit) tablet Take 1 tablet (2,000 Units total) by mouth 1 (one) time each day. 01/24/2018 Active Active Problems Problem Noted Date Diagnosed Date Morbidly obese 04/19/2024 Comments Yes Immunizations Immunization Administration Dates Next Due Influenza Quadravalent, MDCK [...] No fatty or fried food Morbidly obese (CMS/HCC V24, CMS/HCC V28) DX:Morbidly obese (HCC) Family History Medical History Relation [...] = 0.6 oz pur e alcohol) Comments Yes Sex and Gender Information Value Date Recorded Sex Assigned at Not on file Legal Sex Female 8:25 AM EST Gender Identity Not on file Sexual Orientation Not on file Obstetrics History * This document contains information received from the source organization and may not represent a complete record from that organization. Para Term AB IAB SAB Ectopic Multiple Livin g Live Births 4 1 1 1 1 Date Outcome GA Total Labor Labor/2nd/3rd Weight Sex Type Anes PTL Elizabeth A1 A5 Name Clin 2015 2017 Term 39w 0d 3345 g (118 oz) M Vag-S pont Epidur al N Livin g 8 9 [facility] Complications:Gestational di abetes mellitus (GDM),Obesity Delivery Location:[facility] Comments:insulin GDM, 24w5d short cervix 2.8cm Current Last Filed Vital Signs Vital Sign Reading [...] of 3 - 19+ 3-dose series) 2008 HPV Vaccines (1 - 3-dose SCD M series) 2016 Cholesterol Screening (Lipid Panel) 04/17/2022 Social Influencers of Health Screening 04/17/2022 Depression Screening 05/15/2024 COVID-19 Vaccine (1 - 2024-2 6 season) 2025 Influenza Vaccine (#1) 2025 02/01/2017 DTaP,Tdap,and Td Vaccines (2 - Td or Tdap) 03/29/2027 03/29/2017 Cervical Cancer Screening: HPV 01/25/2028 01/24/2023 RSV Immunization Adult Patie nts (1 - 1-dose 75+ series) 2064 HIV Screening Completed 01/03/2018 Hepatitis C Screening [...] 5 Years) and At-Risk Patients (6 to 49 Years) Aged Out No longer eligi ble [...] * Cervical Cancer Screening: HPV (01/24/2023) Pathologist [facility] Cervical Cancer Screening: HPV abstracted, negative Historical Provider HEALTH MAINTENANCE Final Result * HIV Screening (01/03/2018) [facility] HIV Screening abstracted Historical Provider HEALTH MAINTENANCE Final Result * Hepatitis C Screening (01/03/2018) Pathologist [facility] Hepatitis C Screening abstracted [facility] Provider HEALTH MAINTENANCE Final Result from Last 3 Months or Most Recently Relevant to Health Maintenance Insurance MEDICAID - [place] Care Teams International Sourcing Manager Relationship Specialty Start Date End Date Jonn Campos MD [address] [place] [address] Dr Nery [place] PCP - General Internal Medicine 01/18/19
--- OUTSIDE RECORDS SUMMARY | 2025-05-02 12:42 | XMS_ITS | Encounter Summary ---
Author Organization [employer] Address [address] [place] [id number] Care Team Providers Care Silk Screen Processor Name Role Phone Melissa Diaz Primary Care Provider Reason for Referral * Consultation (Routine) - Closed Specialty Diagnoses / Procedures Referred By Contmontserrat t Referred To Contact Bariatrics Diagnoses Class 3 obesity (CMS/HCC) (HCC) Melissa Diaz FNP [address] [place] [address] Phone: tel: fax: [address] [phone] Phone: tel: fax: Referral ID Status Reason Start Date Expiration Date V isits Requested Visits Authorized [id number] Closed Specialty Services Required 04/01/2025 04/01/2026 1 1 Encounter Details Date Type Department Care Team (Late st Contact Info) Description 04/01/2025 Results Follow-Up [facility] [address] [place], [place] [phone] Melissa Diaz FNP [address] [place], [place] [id number] Hemoglobin A1c, Lipid Panel, Standard Social History Tobacco Use Types Packs/Day Years [...] as of this encounter Plan of Treatment Scheduled Referrals Name Type Priority Associated Diagnoses Order Schedule Referral to Weight Management Outpatient Referral Routine Class 3 obesity (CMS/HCC) (HCC) Expected: 04/01/2025 (Approximate), Expires: 04/01/2026 documented as of this encounter Visit Diagnoses Diagnosis Class 3 obesity (CMS/HCC) (HCC)- Primary documented in this encounter Additional Health Concerns Assessment Noted Time PHQ-9 Depression Total Score: 5 03/31/20 25 11:10 AM EST documented as of this encounter Care Teams Silk Screen Processor Relationship Specialty Start Date End Date Melissa Diaz FNP [address] [place] [address] PCP - General Family Medicine 03/04/21 documented as of this encounter
--- OUTSIDE RECORDS SUMMARY | 2025-05-02 12:42 | XMS_ITS | Encounter Summary ---
Author Organization [employer] [facility] Address [address] [place] [address] [address] [place] [address] Care Team Providers Care Informatics Physician Name Role Phone Melissa Diaz Primary Care Provider [phone] Encounter Details Date Type Department Care Team ([facility] st Contact Info) Description 04/29/2022 Orders Only [facility] [address] [place], [place] [phone] Rebecca Camacho, RN Social History Tobacco Use [...] on filedocumented in this encounter Care Teams Informatics Physician Relationship Specialty Start Date End Date Melissa Diaz FNP [address] [place] [address] PCP - General Family Medicine 03/04/21 documented as of this encounter
--- OUTSIDE RECORDS SUMMARY | 2025-05-02 12:42 | XMS_ITS | Encounter Summary ---
Author Organization [employer] Address [address] [place] [address] [address], [place] [address] Care Team Providers Care Slot Tag Inserter Name Role Phone Melissa Diaz Primary Care Provider [phone] Reason for Visit * Reason Onset Date Comments Referral 08/18/2022 Encounter Details Date Type Department Care Team ([facility] st Contact Info) Description 08/18/2022 Telephone [facility] [address] [place] [address] Melissa Diaz FNP [address] [place] [address] Referral Social History Tobacco Use Types Packs/Day [...] referral for Gynecology to be sent to [facility] at [address] [place] [address] If any questions please contact pt at [phone] [place] Citizen Speaker documented in this encounter Plan of Treatment Not on file documented as of this encounter Visit Diagnoses Not on filedocumented in this encounter Additional Health Concerns Assessment Noted Time PHQ-9 Depression Total Score: 0 05/03/20 3:54 PM EST documented as of this encounter Care Teams Slot Tag Inserter Relationship Specialty Start Date End Date Melissa Diaz FNP [address] [place] [id number] PCP - General Family Medicine 03/04/21 documented as of this encounter
--- OUTSIDE RECORDS SUMMARY | 2025-05-02 12:42 | XMS_ITS | Encounter Summary ---
Author Organization [employer] Address [address] [place] [address] [address], [place] [address] Care Team Providers Care Science Specialist Name Role Phone CurtMelissa clarke THANG Primary Care Provider [phone] Reason for Visit * Reason Onset Date Comments Appointment 02/06/2023 Encounter Details Date Type Department Care Team (Late st Contact Info) Description 02/06/2023 Telephone [facility] AD[facility] [address] [place] [address] Jose, Jeanne [address] [place] [address] Appointment Social History Tobacco Use Types Packs/Day [...] documented as of this encounter Care Teams Science Specialist Relationship Specialty Start Date End Date Melissa Diaz FNP [address] [place] [address] PCP - General Family Medicine 03/04/21 documented as of this encounter
--- OUTSIDE RECORDS SUMMARY | 2025-05-02 12:42 | XMS_ITS | Encounter Summary ---
Author Organization [employer] Address [address] [place] [address] Care Team Providers Care Moss Bleacher Name Role Phone Melissa Diaz THANG Primary Care Provider [phone] Encounter Details Date Type Department Care Team (Latest Contact Info) Description 05/02/2025 Travel Social History Tobacco Use Types Packs/Day [...] your housing situation today? I have donna stanley 09/25/[address] you li [...] documented as of this encounter Care Teams Moss Bleacher Relationship Specialty Start Date End Date Melissa Diaz FNP [address] [place] [id number] PCP - General Family Medicine 03/04/21 documented as of this encounter
[2025-05-02 15:08] LABS: MANUAL DIFF FLAG NO
[2025-05-02 15:15] LABS: Hematocrit 40.0 % (37.0-47.0); Hemoglobin 12.7 g/dl (12.0-16.0); Imm Gran Abs Auto 0.02 X10*3/uL (0.00-0.03); Imm Gran Pct Auto 0.2 % (0.0-0.4); Lymphocytes Absolute Auto 2.6 X10*3/uL (1.2-4.9); Mean Corpuscular HGB Conc 31.8 g/dl (31.0-35.0); Mean Corpuscular Hemoglobin 26.3 pg (27.0-33.0); Mean Corpuscular Volume 82.8 fL (80.0-98.0); NRBC Abs Auto 0.000 X10*3/uL (0.0-0.012); NRBC Pct Auto 0.0 /100WBC (0.0-0.2); Platelet Count 300 X10*3/uL (160-400); Red Blood Count 4.83 X10*6/uL (4.20-5.50); White Blood Count 8.8 X10*3/uL (4.8-10.8)
[2025-05-02 15:46] LABS: Alanine Aminotransferase 26 U/L (0-31); Albumin Level 4.4 g/dL (3.5-5.0); Alkaline Phosphatase 63 U/L (39-117); Anion Gap 12 (12-20); Aspartate Amino Transferase 24 U/L (5-31); Blood Urea Nitrogen 12 mg/dL (9-16); Calcium 9.8 mg/dL (8.4-10.2); Carbon Dioxide 25 mmol/L (22-29); Chloride 105 mmol/L (96-108); Estimated Glomerular Filt Rate > 60; Potassium 3.8 mmol/L (3.3-5.1); Sodium 138 mmol/L (135-145); Total Protein 7.4 g/dL (6.5-8.0)
[2025-05-02 15:51] LABS: Ferritin 54 ng/mL (10-122)
[2025-05-02 18:14] LABS: Bacterial Vaginosis PCR POSITIVE (Negative); Candida Group PCR NOT DETECTED (Not Detect); Candida glab krusei PCR NOT DETECTED (Not Detect); Trichomonas vaginalis PCR NOT DETECTED (Not Detect)
[2025-05-02 18:46] LABS: CT PCR NOT DETECTED (Not Detect.); NG PCR NOT DETECTED (Not Detect.)
[2025-05-05 04:41] LABS: HIV Num 1 0.05 S/CO (0.00-0.99); ~HepC Num1 0.19 S/CO (0.00-0.79); ~Hepatitis C Antibody Nonreactive (Nonreactive)
== END 2025-05-02 10:53 | disposition home or self-care (01) ==
LOC: HO.CHCLNP 10:52
PROVIDERS: Visit Provider Registered Nurse
DX: Z00.00 Encounter for general adult medical examination without abnormal findings (principal); Z20.2 Contact with and (suspected) exposure to infections with a predominantly sexual mode of transmission; Z11.4 Encounter for screening for human immunodeficiency virus [HIV]; Z11.59 Encounter for screening for other viral diseases
CPT/HCPCS: 36415; 80053; 81515; 82306; 82728; 84443; 85025; 86592; 86803; 87389; 87491; 87591